=== PATIENT | male | born 1935 | race Caucasian/White ===

== ENCOUNTER → 2018-01-19 | Outpatient (CLI) | payer OTHER ==
[~2018-01-19] MED LIST: AMR2 PO; ASPEC81 PO; ATOR-26 PO; FLM4 PO; FLNIN NAE; FLUT1INH INH; FRS/40 PO; GLC500 PO; IPRASOL4 INH; LISI-725 PO; METO50TA16 PO; WARF5TAB7 PO; WARF5TAB90 PO
--- NOTE | 2018-01-19 15:56 | ECHOCARDIOGRAM REPORT ---
*NOTICE TO RECEIVING [employer] This information is strictly Confidential and protected under [place] law. [place] law prohibits you from making any further disclosure of this information unless further disclosure is expressly permitted by the written consent of the person to whom it pertains or is authorized by law. A general authorization for the release of medical or other information is not sufficient for this purpose. Hospital accepts no responsibility if the information is made available to any other person, INCLUDING THE PATIENT. Interpretation Summary * Name: HYACINTH GREENE Study Date: 01/19/2018 01:47 PM BP: 131/86 mmHg * Patient Location: [facility] HR: 89 * : 1935 (M/d/yyyy) Gender: Male Height: 71 in * Age: 82 yrs Ethnicity: CA Weight: 205 lb * Ordering Physician: Earnest Vergara * Referring Physician: Earnest Vergara * Performed By: Esther Villegas RCS * * Reason For Study: CHRONIC A-FIB / CHRONIC DIASTOLIC HEART FAILURE * BSA: 2.1 m2 * -- Conclusions -- * There is mild concentric left ventricular hypertrophy. * Left ventricular systolic function is normal. * The left atrium is severely dilated. * The right atrium is severely dilated. * Aortic valve sclerosis moderate, without significant aortic valvular stenosis. * Mild aortic regurgitation. * There is mild to moderate mitral regurgitation. * Right ventricular systolic pressure is elevated at 40-50mmHg. * The inferior vena cava is moderately dilated. Procedure Details * A complete two-dimensional transthoracic echocardiogram was performed (2D, M-mode, Doppler and color flow Doppler). Left Ventricle * The left ventricle is normal in size. * There is mild concentric left ventricular hypertrophy. * Left ventricular systolic function is normal. * Ejection Fraction = 55-60%. * The left ventricular wall motion is normal. Right Ventricle * The right ventricle is normal in size and function. Atria * The left atrium is severely dilated. * The right atrium is severely dilated. Mitral Valve * The mitral valve is grossly normal. * There is mild to moderate mitral regurgitation. * The mitral regurgitant jet is eccentrically directed. * The mitral regurgitant jet is posteriorly directed, which is consistent with anterior leaflet pathology. Tricuspid Valve * The tricuspid valve is not well visualized, but is grossly normal. * There is trace tricuspid regurgitation. * Right ventricular systolic pressure is elevated at 40-50mmHg. Aortic Valve * Aortic valve sclerosis moderate, without significant aortic valvular stenosis. * No hemodynamically significant valvular aortic stenosis. * Mild aortic regurgitation. Great Vessels * The aortic root is normal size. Pericardium/Pleural * There is no pericardial effusion. Great Vessels * The inferior vena cava is moderately dilated. MMode 2D Measurements and Calculations IVSd 1.5 cm IVSs 1.5 cm LVIDd 4.9 cm LVIDs 3.8 cm LVPWd 1.3 cm LVPWs 1.5 cm IVS/LVPW 1.1 FS 22.4 % EDV(Teich) 114.2 ml ESV(Teich) 62.9 ml EF(Teich) 45.0 % EDV(cubed) 119.5 ml ESV(cubed) 55.9 ml EF(cubed) 53.2 % % IVS thick 4.4 % % LVPW thick 19.0 % LV mass(C)d 275.7 grams LV mass(C)dI 129.4 grams/m\S\2 LV mass(C)s 223.8 grams LV mass(C)sI 105.0 grams/m\S\2 SV(Teich) 51.4 ml SI(Teich) 24.1 ml/m\S\2 SV(cubed) 63.7 ml SI(cubed) 29.9 ml/m\S\2 Ao root diam 3.5 cm Ao root area 9.4 cm\S\2 LA dimension 5.5 cm LA/Ao 1.6 LVOT diam 1.9 cm LVOT area 2.8 cm\S\2 LVAd ap4 33.2 cm\S\2 LVLd ap4 8.5 cm EDV(MOD-sp4) 107.1 ml EDV(sp4-el) 110.1 ml LVAs ap4 22.8 cm\S\2 LVLs ap4 7.6 cm ESV(MOD-sp4) 56.5 ml ESV(sp4-el) 58.2 ml EF(MOD-sp4) 47.2 % EF(sp4-el) 47.1 % LVAd ap2 30.8 cm\S\2 LVLd ap2 8.2 cm EDV(MOD-sp2) 94.6 ml EDV(sp2-el) 98.4 ml LVAs ap2 20.5 cm\S\2 LVLs ap2 7.0 cm ESV(MOD-sp2) 48.8 ml ESV(sp2-el) 51.1 ml EF(MOD-sp2) 48.4 % EF(sp2-el) 48.1 % LVLd %diff -4.10 % EDV(MOD-bp) 101.5 ml LVLs %diff -8.95 % ESV(MOD-bp) 54.3 ml EF(MOD-bp) 46.5 % SV(MOD-sp4) 50.6 ml SI(MOD-sp4) 23.7 ml/m\S\2 SV(MOD-sp2) 45.8 ml SI(MOD-sp2) 21.5 ml/m\S\2 SV(MOD-bp) 47.3 ml SI(MOD-bp) 22.2 ml/m\S\2 SV(sp4-el) 51.8 ml SI(sp4-el) 24.3 ml/m\S\2 SV(sp2-el) 47.3 ml SI(sp2-el) 22.2 ml/m\S\2 Doppler Measurements and Calculations MV E max karis 77.6 cm/sec MV dec time 0.22 sec Ao V2 max 86.0 cm/sec Ao max PG 3.0 mmHg Ao max PG (full) 1.5 mmHg MAXIMUS(V,A) 2.0 cm\S\2 MAXIMUS(V,D) 2.0 cm\S\2 LV V1 max PG 1.5 mmHg LV V1 max 60.9 cm/sec MR max karis 435.7 cm/sec MR max PG 75.9 mmHg PA V2 max 87.3 cm/sec PA max PG 3.0 mmHg PI max karis 192.6 cm/sec PI max PG 14.8 mmHg PI dec slope 85.8 cm/sec\S\2 PI P1/2t 657.1 msec TR max karis 281.5 cm/sec
== END | disposition home or self-care (01) ==
LOC: C.CPL 13:25
PROVIDERS: ATTEND Internal Medicine Cardiovascular Disease
DX: I48.2 Chronic atrial fibrillation (principal); I50.32 Chronic diastolic (congestive) heart failure; I70.0 Atherosclerosis of aorta; I08.0 Rheumatic disorders of both mitral and aortic valves

== ENCOUNTER 2018-04-03 17:44 | Inpatient (IN) | payer OTHER ==
[~2018-04-03] VITALS: Ht 180.3 cm; Wt 87.3 kg
[2018-04-03] MEDS ORDERED: SODIUM CHLORIDE 0.9% 1000ML 250 ML IV STA (17:55)
--- NOTE | 2018-04-03 18:04 | EMERGENCY ROOM VISIT NOTE ---
History Report prepared by Johann: Mary Alexis Under the Supervision of: Dr. Ernesto Sun M.D. 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 His daughter then took her father outside on Tuesday and while going back inside the house, he slipped on a metal slab and fell on his backside and then hit his head--no LOC. She states that her father has been repeatedly falling since he hit his head and his thinking/confusion has worsened. The patient states that movement worsens his leg pain--the leg pain is chronic. He denies any headaches , chest pain, SOB, or fever. A new medication for him is Hydrocodone prescribed for his leg pain. 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 A total of 10 systems reviewed and were otherwise negative. Past Medical & Surgical Medical Problems: (1) Atrial fibrillation (2) Bladder cancer (3) Chronic diastolic CHF (congestive heart failure) (4) CKD (chronic kidney disease), stage III (5) COPD (chronic obstructive pulmonary disease) (6) DM type 2 (diabetes mellitus, type 2) (7) Dyslipidemia (8) GERD (gastroesophageal reflux disease) (9) Hypertension (10) STEPHENIE (obstructive sleep apnea) Surgical Problems: (1) H/O inguinal hernia repair (2) Hx of cataract surgery (3) TURBT Family History Patient reports no known family medical history. Social History Smoking Status: Former Smoker Alcohol Use: none Marital Status: Occupation Status: retired Current/Historical Medications Scheduled Atorvastatin (Lipitor), 80 MG PO QPM Fluticasone Furoate-Vilanterol (Breo Ellipta), 1 PUFFS INH DAILY Fluticasone Propionate (Nasal) (Flonase Allergy Relief), 2 SPRAY CAROLANN DAILY Furosemide (Lasix), 60 MG PO QAM Glimepiride (Glimepiride), 1 TAB PO BID Lisinopril (Zestril), 10 MG PO DAILY Metoprolol Tartrate (Lopressor) (Lopressor), 50 MG PO BID Tamsulosin Hcl (Flomax), 0.4 MG PO DAILY Warfarin Sod (Jantoven), 5 MG PO TuTh Warfarin Sodium (Coumadin), 7.5 MG PO SuMoWeFrSa Scheduled PRN Hydrocodone/Acetaminophen 5MG/325MG (Nunda 5MG/325MG), 1 TABLET PO Q4H PRN for Pain Ipratropium-Albuterol (Duoneb), 1 TREATMENT INH Q4H PRN for CONGESTION Allergies Coded Allergies: Latex1 -Allergic Contact Dermititis (Verified Allergy, Unknown, LOCAL SKIN IRRITATION, 04/03/18) Cefuroxime (Verified Adverse Reaction, Mild, GI UPSET, 04/03/18) Penicillins (Verified Adverse Reaction, Mild, VOMITING, 04/03/18) Physical Exam Vital Signs Date Time Temp Pulse Resp B/P (MAP) Pulse Ox O2 Delivery O2 Flow Rate FiO2 04/03/18 20:13 111 24 113/63 94 Room Air 04/03/18 19:21 95 20 99/56 95 Room Air 04/03/18 18:07 109 04/03/18 18:02 97 Room Air 04/03/18 18:02 106 24 105/71 96 Room Air Physical Exam GENERAL: Patient is in no acute distress. HEENT: No acute trauma, normocephalic atraumatic, mucous membranes moist, no nasal congestion, no scleral icterus. No posterior scalp hematoma. NECK: No stridor, no adenopathy, no meningismus, trachea is midline. Nontender posterior C spine. LUNGS: Decreased breath sounds bilaterally. A few scattered wheezes are heard. No respiratory distress. Breath sounds are equal. HEART: Irregular rhythm with a normal rate. No murmurs. ABDOMEN: Soft, nontender, bowel sounds positive, no hernias, no peritonitis. EXTREMITIES: No cyanosis or edema, full range of motion of all the joints without pain or difficulty, no signs for acute trauma. NEUROLOGIC: Some confusion noted. Moving all extremities equally. Awake and alert. No focal motor deficits. GCS 14. SKIN: No rash, no jaundice, no diaphoresis. Medical Decision & Procedures ER Provider Diagnostic Interpretation: Radiology results as stated below per my review and radiologist interpretation: CHEST ONE VIEW PORTABLE CLINICAL HISTORY: 82 years-old Male presenting with EVALUATE ALTERED MENTAL STATUS/WEAKNESS. TECHNIQUE: Portable upright AP view of the chest was obtained. COMPARISON: 03/20/2016. FINDINGS: Atherosclerosis of aortic arch. Cardiac silhouette moderately enlarged. Pulmonary vascular prominence. Chronic elevation of the left hemidiaphragm. Minimal left basilar opacity. No large effusion or pneumothorax. Degenerative changes of the left glenohumeral joint. Upper abdomen normal. IMPRESSION: 1. Cardiomegaly with mild volume overload. No martha pulmonary edema or other convincing evidence of acute cardiopulmonary disease. Electronically signed by: Marcial Noriega M.D. 04/03/2018 6:12 PM Dictated Date/Time: 04/03/2018 6:11 PM HEAD WITHOUT CONTRAST (CT) CLINICAL HISTORY: 82 years-old Male presenting with EVALUATE ALTERED MENTAL STATUS/WEAKNESS. TECHNIQUE: Multidetector CT imaging of the head was performed without the use of intravenous contrast. IV contrast: None. A dose lowering technique was used consistent with the principles of ALARA (as low as reasonably achievable). COMPARISON: 03/14/2012. CT DOSE (mGy.cm): The estimated cumulative dose is 614.27 mGy.cm. FINDINGS: Algologist topogram: Unremarkable. Proportional ventricular and sulcal prominence, likely age-related parenchymal volume loss. Brain parenchyma normal in appearance with preserved vásquez-white differentiation. No mass effect or midline shift. No hemorrhage or acute territorial infarct. No extra-axial fluid collection. Paranasal sinuses and mastoid air cells clear. Calvarium intact. IMPRESSION: 1. No acute intracranial abnormality. Electronically signed by: Marcial Noriega M.D. 04/03/2018 7:52 PM Dictated Date/Time: 04/03/2018 7:49 PM Laboratory Results 04/03/18 18:25 Red Blood Count 4.64, Mean Corpuscular Volume 93.1, Mean Corpuscular Hemoglobin 32.1, Mean Corpuscular Hemoglobin Concent 34.5, Mean Platelet Volume 9.2, Neutrophils (%) (Auto) 73.4, Lymphocytes (%) (Auto) 13.9, Monocytes (%) (Auto) 11.9, Eosinophils (%) (Auto) 0.3, Basophils (%) (Auto) 0.2, Neutrophils # (Auto ) 7.90, Lymphocytes # (Auto) 1.50, Monocytes # (Auto) 1.28, Eosinophils # (Auto ) 0.03, Basophils # (Auto) 0.02 04/03/18 18:25 Test 04/03/18 18:25 04/03/18 18:34 White Blood Count 10.76 K/uL (4.8-10.8) Red Blood Count 4.64 M/uL (4.7-6.1) Hemoglobin 14.9 g/dL (14.0-18.0) Hematocrit 43.2 % (42-52) Mean Corpuscular Volume 93.1 fL (80-100) Mean Corpuscular Hemoglobin 32.1 pg (25-34) Mean Corpuscular Hemoglobin Concent 34.5 g/dl (32-36) Platelet Count 207 K/uL (130-400) Mean Platelet Volume 9.2 fL (7.4-10.4) Neutrophils (%) (Auto) 73.4 % Lymphocytes (%) (Auto) 13.9 % Monocytes (%) (Auto) 11.9 % Eosinophils (%) (Auto) 0.3 % Basophils (%) (Auto) 0.2 % Neutrophils # (Auto) 7.90 K/uL (1.4-6.5) Lymphocytes # (Auto) 1.50 K/uL (1.2-3.4) Monocytes # (Auto) 1.28 K/uL (0.11-0.59) Eosinophils # (Auto) 0.03 K/uL (0-0.5) Basophils # (Auto) 0.02 K/uL (0-0.2) RDW Standard Deviation 47.7 fL (36.4-46.3) RDW Coefficient of Variation 14.0 % (11.5-14.5) Immature Granulocyte % (Auto) 0.3 % Immature Granulocyte # (Auto) 0.03 K/uL (0.00-0.02) Prothrombin Time 32.2 SECONDS (9.0-12.0) Prothromb Time International Ratio 3.1 (0.9-1.1) Activated Partial Thromboplast Time 43.6 SECONDS (21.0-31.0) Partial Thromboplastin Ratio 1.7 Anion Gap 7.0 mmol/L (3-11) Est Creatinine Clear Calc Drug Dose 40.4 ml/min Estimated GFR () 49.5 Estimated GFR (Non- 42.7 BUN/Creatinine Ratio 20.7 (10-20) Calcium Level 11.0 mg/dl (8.5-10.1) Magnesium Level 2.1 mg/dl (1.8-2.4) Total Bilirubin 1.4 mg/dl (0.2-1) Aspartate Amino Transf (AST/SGOT) 33 U/L (15-37) Alanine Aminotransferase (ALT/SGPT) 17 U/L (12-78) Alkaline Phosphatase 174 U/L (45-117) Total Creatine Kinase 71 U/L (39-308) Troponin I < 0.015 ng/ml (0-0.045) Total Protein 6.8 gm/dl (6.4-8.2) Albumin 2.6 gm/dl (3.4-5.0) Globulin 4.2 gm/dl (2.5-4.0) Albumin/Globulin Ratio 0.6 (0.9-2) Thyroid Stimulating Hormone (TSH) 0.843 uIu/ml (0.300-4.500) Urine Color YELLOW Urine Appearance TURBID (CLEAR) Urine pH 5.5 (4.5-7.5) Urine Specific [place] 1.014 (1.000-1.030) Urine Protein 1+ (NEG) Urine Glucose (UA) NEG (NEG) Urine Ketones NEG (NEG) Urine Occult Blood 3+ (NEG) Urine Nitrite POS (NEG) Urine Bilirubin NEG (NEG) Urine Urobilinogen NEG (NEG) Urine Leukocyte Esterase LARGE (NEG) Urine WBC (Auto) >30 /hpf (0-5) Urine RBC (Auto) 10-30 /hpf (0-4) Urine Hyaline Casts (Auto) 1-5 /lpf (0-5) Urine Epithelial Cells (Auto) 0-5 /lpf (0-5) Urine Bacteria (Auto) NEG (NEG) Urine Yeast (Auto) (NONE PRSENT) Urine Opiates Screen POS (NEG) Urine Methadone, Qualitative NEG (NEG) Urine Barbiturates NEG (NEG) Urine Phencyclidine (PCP) Level NEG (NEG) Ur Amphetamine/Methamphetamine NEG (NEG) MDMA (Ecstasy) Screen NEG (NEG) Urine Benzodiazepines Screen NEG (NEG) Urine Cocaine Metabolite NEG (NEG) Urine Marijuana (THC) NEG (NEG) Laboratory results reviewed by me. Medications Administered Medications (Trade) Dose Ordered Sig/Clementina Route Start Time Stop Time Status Last Admin Dose Admin Sodium Chloride 250 ml @ 999 mls/hr Q16M STAT IV 04/03/18 17:55 04/03/18 18:10 DC 04/03/18 17:55 999 MLS/HR Ceftriaxone Sodium (Rocephin Inj) 1 gm NOW STAT IV 04/03/18 19:03 04/03/18 19:04 DC 04/03/18 19:20 1 GM Sodium Chloride 250 ml @ 999 mls/hr Q16M STAT IV 04/03/18 19:04 04/03/18 19:19 DC 04/03/18 19:20 999 MLS/HR Sodium Chloride 500 ml @ 999 mls/hr Q31M STAT IV 04/03/18 20:04 04/03/18 20:34 DC 04/03/18 20:13 999 MLS/HR ECG Per My Interpretation Indication: weakness Rate (beats per minute): 99 Rhythm: atrial fibrillation Findings: PVC, other (no ST elevation, diffuse nonspecific ST change) ED Course 174: The patient was evaluated in room B12. A complete history and physical exam was performed. 1755: Ordered Sodium Chloride 250 ml @ 999 mls/hr IV 1903: Ordered Rocephin Inj 1 gm IV 1904: Sodium Chloride 250 ml @ 999 mls/hr IV 2003: Ordered Sodium Chloride 500 ml @ 999 mls/hr IV 2005: I checked on the patient at this time. Medical Decision Differential diagnosis: Etiologies such as infection, UTI, renal or liver failure, dysrhythmia, AL, dehydration, electrolyte imbalance, stroke, intracranial bleeding, medication reaction as well as others were entertained. There is no leukocytosis or concerning anemia. Renal panel testing shows evidence for dehydration. There were also a few scattered liver enzyme elevations. The patient appeared to be in a euthyroid state. EKG showed A. fib with a PVC, no acute ischemia. Cardiac enzyme testing 1 is not consistent with acute cardiac injury. Chest film shows cardiomegaly, no CHF or pneumonia. Brain CT shows no acute bleed or mass-effect. Urinalysis is consistent with infection. Urine culture and blood cultures are pending. Urine tox shows opiates. INR is elevated consistent with his Coumadin use. The patient presents with a change in mental status, weakness and frequent falls. He appears to have a UTI and is dehydrated. I suspect these 2 issues have led to his presentation today. There may also be some weakness from the hydrocodone he is now taking for his leg pain. Given the change in mental status, given his weakness and frequent falls, a hospital stay is warranted. I spoke to the patient and case management. The on -call hospitalist was consulted. During the patient's ER stay, he received IV saline, he received IV ceftriaxone as antibiotic coverage. Head Trauma GCS Score: 14 Medication Reconcilliation Current Medication List: was personally reviewed by me Blood Pressure Screening Patient's blood pressure: Normal blood pressure Blood pressure disposition: Did not require urgent referral Consults Time Called: 1999 Consulting Physician: HUMBERTO Gomez, Dorina Hospitalist Returned Call: 2005 Discussed the patient's case with HUMBERTO Gomez. The patient will be evaluated for further management. Impression Primary Impression: Change in mental status Additional Impressions: Head trauma Frequent falls UTI (urinary tract infection) Scribe Attestation The scribe's documentation has been prepared under my direction and personally reviewed by me in its entirety. I confirm that the note above accurately reflects all work, treatment, procedures, and medical decision making performed by me. Departure Information Dispostion Being Evaluated By Hospitalist (HUMBERTO Gomez, Dorina Hospitalist) Referrals Robby Gallegos D.O. (PCP) Patient Instructions [facility] Problem Qualifiers
--- NOTE | 2018-04-03 18:14 | DIAGNOSTIC IMAGING REPORT ---
CHEST ONE VIEW PORTABLE CLINICAL HISTORY: 82 years-old Male presenting with EVALUATE ALTERED MENTAL STATUS/WEAKNESS. TECHNIQUE: Portable upright AP view of the chest was obtained. COMPARISON: 03/20/2016. FINDINGS: Atherosclerosis of aortic arch. Cardiac silhouette moderately enlarged. Pulmonary vascular prominence. Chronic elevation of the left hemidiaphragm. Minimal left basilar opacity. No large effusion or pneumothorax. Degenerative changes of the left glenohumeral joint. Upper abdomen normal. IMPRESSION: 1. Cardiomegaly with mild volume overload. No martha pulmonary edema or other convincing evidence of acute cardiopulmonary disease. Electronically signed by: Marcial Noriega M.D. 04/03/2018 6:12 PM Dictated Date/Time: 04/03/2018 6:11 PM
[2018-04-03] MEDS ORDERED: HYDR-5688 PO (18:28)
[2018-04-03] MEDS ORDERED: GLIM4TAB2 PO (18:28)
[2018-04-03] MEDS ORDERED: FLUT0.15 NAE (18:28)
[2018-04-03] MEDS ORDERED: METF-841 PO (18:28)
[2018-04-03] MEDS ORDERED: TAMS0.4C38 PO (18:28)
[2018-04-03 18:48] LABS: BASO % 0.2 %; BASO ABS # 0.02 K/uL (0-0.2); EOS % 0.3 %; EOS ABS # 0.03 K/uL (0-0.5); HEMATOCRIT 43.2 % (42-52); HEMOGLOBIN 14.9 g/dL (14.0-18.0); IG# 0.03 K/uL (0.00-0.02); LYMPH % 13.9 %; MEAN CELL VOLUME 93.1 fL (80-100); MEAN CORPUSCULAR HEMOGLOBIN 32.1 pg (25-34); MEAN CORPUSCULAR HGB CONC 34.5 g/dl (32-36); MEAN PLATELET VOLUME 9.2 fL (7.4-10.4); MONO % 11.9 %; MONO ABS # 1.28 K/uL (0.11-0.59); NEUT % 73.4 %; PLATELET COUNT 207 K/uL (130-400); RED CELL DISTRIBUTION WIDTH SD 47.7 fL (36.4-46.3); WHITE BLOOD COUNT 10.76 K/uL (4.8-10.8)
[2018-04-03 19:03] LABS: INR 3.1 (0.9-1.1); PTT PATIENT 43.6 SECONDS (21.0-31.0)
[2018-04-03] MEDS ORDERED: CEFTRIAXONE SOD INJ 1 GM ADDVIAL IV STA (19:03)
[2018-04-03] MEDS ORDERED: SODIUM CHLORIDE 0.9% 250ML 250 ML IV STA (19:04)
[2018-04-03 19:25] LABS: ALBUMIN 2.6 gm/dl (3.4-5.0); BLOOD UREA NITROGEN 31 mg/dl (7-18); CARBON DIOXIDE 28 mmol/L (21-32); GLUCOSE 76 mg/dl (70-99); POTASSIUM 4.2 mmol/L (3.5-5.1); SODIUM 134 mmol/L (136-145)
[2018-04-03 19:37] LABS: ALKALINE PHOSPHATASE 174 U/L (45-117); ALT/SGPT 17 U/L (12-78); AST/SGOT 33 U/L (15-37); TOTAL PROTEIN 6.8 gm/dl (6.4-8.2)
--- NOTE | 2018-04-03 19:53 | DIAGNOSTIC IMAGING REPORT ---
HEAD WITHOUT CONTRAST (CT) CLINICAL HISTORY: 82 years-old Male presenting with EVALUATE ALTERED MENTAL STATUS/WEAKNESS. TECHNIQUE: Multidetector CT imaging of the head was performed without the use of intravenous contrast. IV contrast: None. A dose lowering technique was used consistent with the principles of ALARA (as low as reasonably achievable). COMPARISON: 03/14/2012. CT DOSE (mGy.cm): The estimated cumulative dose is 614.27 mGy.cm. FINDINGS: Papeterie Table Assembler topogram: Unremarkable. Proportional ventricular and sulcal prominence, likely age-related parenchymal volume loss. Brain parenchyma normal in appearance with preserved vásquez-white differentiation. No mass effect or midline shift. No hemorrhage or acute territorial infarct. No extra-axial fluid collection. Paranasal sinuses and mastoid air cells clear. Calvarium intact. IMPRESSION: 1. No acute intracranial abnormality. Electronically signed by: Marcial Noriega M.D. 04/03/2018 7:52 PM Dictated Date/Time: 04/03/2018 7:49 PM
[2018-04-03] MEDS ORDERED: SODIUM CHLORIDE 0.9% 500ML 500 ML IV STA (20:04)
[2018-04-03 20:54] VITALS: BMI 26.5
[2018-04-03] MEDS ORDERED: ONDANSETRON INJ 2 MG/ML 2 ML VIAL IV PRN (21:00)
[2018-04-03] MEDS ORDERED: DEXTROSE 50% 50 ML SYR IV PRN (21:15)
[2018-04-03] MEDS ORDERED: GLUCOSE 10 TABS/TUBE PO PRN (21:15)
[2018-04-03] MEDS ORDERED: GLUCOSE 40% GEL 15 GM TUBE PO PRN (21:15)
[2018-04-03] MEDS ORDERED: GLUCAGON FOR INJ 1 MG VIAL SQ PRN (21:15)
[2018-04-03] MEDS ORDERED: CARBOHYDRATES FOR HYPOGLYCEMIA PO PRN (21:15)
[2018-04-03] MEDS ORDERED: VANCOMYCIN CONSULT ACTIVE PRN (21:28)
[2018-04-03] MEDS ORDERED: VANCOMYCIN IV 1,750 MG in SODIUM CHLORIDE 0.9% 500ML 500 ML IV STA (21:31)
[2018-04-03] MEDS ORDERED: PIPERACILL/TAZOBAC IV 3.375 GM in D5W 100 ML IV ONE (21:45)
[2018-04-03] MEDS ORDERED: PIPERACILL/TAZOBAC CONSULT ACTIVE PRN (21:45)
--- NOTE | 2018-04-03 21:55 | History and Physical ---
History & Physical Date & Time of Service: April 03, 2018 ~ 20:15 Chief Complaint: Weakness, falls, confusion Primary Care Physician: Robby Gallegos D.O. History of Present Illness 82-year-old male who presents to the ED with generalized weakness, falls, and confusion. and daughter at the bedside who provides some information. Patient has been following with urology at [place] for bladder tumor. On , patient had urine culture positive for staph. He was treated with Macrobid. Patient was seen by urology on 03/13/18 in preparation for TURBT and was found to have a UTI. I do not have access to those culture results. Patient was treated with Cipro. On 03/27/18, patient underwent TURBT. He had a Eubanks catheter placed postoperatively. This was removed on 03/31/18. Daughter is at the bedside who reports that urine was initially bloody after removing the catheter however has since cleared up. The patient has had at least 3 falls over the past 3 days. He did strike his head on 1 of the falls. There was no loss of consciousness. Daughter reports she witnessed each of the falls and the patient did not pass out. She reports the patient has had increasing confusion of the past 1 month. No unilateral weakness, numbness, or tingling. No facial droop or slurred speech. Patient denies feelings of lightheadedness or dizziness. No chest pain or shortness of breath. No abdominal pain, nausea , vomiting. Daughter reports the patient had some diarrhea for a couple of days however none since yesterday. No fevers or chills. No reported urinary symptoms. In the ED, patient's UA is suggestive of UTI. Vitals are stable and labs are unremarkable. He was given IVF and a dose of IV ceftriaxone. Past Medical/Surgical History Medical Problems: (1) Atrial fibrillation Status: Chronic (2) Bladder cancer Status: Chronic (3) Chronic diastolic CHF (congestive heart failure) Status: Chronic (4) CKD (chronic kidney disease), stage III Status: Chronic (5) COPD (chronic obstructive pulmonary disease) Status: Chronic (6) DM type 2 (diabetes mellitus, type 2) Status: Chronic (7) Dyslipidemia Status: Chronic (8) GERD (gastroesophageal reflux disease) Status: Chronic (9) Hypertension Status: Chronic (10) STEPHENIE (obstructive sleep apnea) Status: Chronic Surgical Problems: (1) H/O inguinal hernia repair Status: Chronic (2) Hx of cataract surgery Status: Chronic (3) TURBT Status: Chronic Family History Noncontributory secondary to patient's advanced age Social History Smoking Status: Former Smoker Alcohol Use: none Marital Status: Housing status: lives with family Occupational Status: retired Immunizations History of Influenza Vaccine: Yes Influenza Vaccine Date: Aug 24, 2017 History of Tetanus Vaccine?: Yes Tetanus Immunization Date: Sep 20, 2012 History of Pneumococcal: Yes Pneumococcal Date: Jun 05, 2015 Allergies Coded Allergies: Latex1 -Allergic Contact Dermititis (Verified Allergy, Unknown, LOCAL SKIN IRRITATION, 04/03/18) Cefuroxime (Verified Adverse Reaction, Mild, GI UPSET, 04/03/18) Penicillins (Verified Adverse Reaction, Mild, VOMITING, 04/03/18) Home Medications Scheduled Atorvastatin (Lipitor), 80 MG PO QPM Fluticasone Furoate-Vilanterol (Breo Ellipta), 1 PUFFS INH DAILY Fluticasone Propionate (Nasal) (Flonase Allergy Relief), 2 SPRAY CAROLANN DAILY Furosemide (Lasix), 60 MG PO QAM Glimepiride (Glimepiride), 1 TAB PO BID Lisinopril (Zestril), 10 MG PO DAILY Metoprolol Tartrate (Lopressor) (Lopressor), 50 MG PO BID Tamsulosin Hcl (Flomax), 0.4 MG PO DAILY Warfarin Sod (Jantoven), 5 MG PO TuTh Warfarin Sodium (Coumadin), 7.5 MG PO SuMoWeFrSa Scheduled PRN Hydrocodone/Acetaminophen 5MG/325MG ([place] 5MG/325MG), 1 TABLET PO Q4H PRN for Pain Ipratropium-Albuterol (Duoneb), 1 TREATMENT INH Q4H PRN for CONGESTION Review of Systems ROS per HPI, all other systems reviewed and negative Physical Exam Vital Signs Date Time Temp Pulse Resp B/P (MAP) Pulse Ox O2 Delivery O2 Flow Rate FiO2 04/03/18 21:23 104 22 104/63 97 04/03/18 20:54 Room Air 04/03/18 20:13 111 24 113/63 94 Room Air 04/03/18 19:21 95 20 99/56 95 Room Air 04/03/18 18:07 109 04/03/18 18:02 97 Room Air 04/03/18 18:02 106 24 105/71 96 Room Air General Appearance: WD/WN, no apparent distress Head: normocephalic, atraumatic Eyes: normal inspection, EOMI, sclerae normal ENT: hearing grossly normal, + pertinent finding (Mucous membranes moist) Neck: supple, no JVD, trachea midline Respiratory/Chest: lungs clear, normal breath sounds, no respiratory distress Cardiovascular: no edema, normal peripheral pulses, + irregularly irregular ( Heart rate in the low 100s) Abdomen/GI: normal bowel sounds, non tender, soft, no organomegaly Extremities/Musculoskelatal: normal inspection, no calf tenderness, normal capillary refill Neurologic/Psych: no motor/sensory deficits, alert, + disoriented (To time and situation, forgetful) Skin: + pertinent finding (DTI/stage II decubitus ulcer noted to coccyx, bilateral buttocks) Diagnostics Laboratory Results Results Past 24 Hours Test 04/03/18 18:25 04/03/18 18:34 Range/Units White Blood Count 10.76 4.8-10.8 K/uL Red Blood Count 4.64 4.7-6.1 M/uL Hemoglobin 14.9 14.0-18.0 g/dL Hematocrit 43.2 42-52 % Mean Corpuscular Volume 93.1 80-100 fL Mean Corpuscular Hemoglobin 32.1 25-34 pg Mean Corpuscular Hemoglobin Concent 34.5 32-36 g/dl Platelet Count 207 130-400 K/uL Mean Platelet Volume 9.2 7.4-10.4 fL Neutrophils (%) (Auto) 73.4 % Lymphocytes (%) (Auto) 13.9 % Monocytes (%) (Auto) 11.9 % Eosinophils (%) (Auto) 0.3 % Basophils (%) (Auto) 0.2 % Neutrophils # (Auto) 7.90 1.4-6.5 K/uL Lymphocytes # (Auto) 1.50 1.2-3.4 K/uL Monocytes # (Auto) 1.28 0.11-0.59 K/uL Eosinophils # (Auto) 0.03 0-0.5 K/uL Basophils # (Auto) 0.02 0-0.2 K/uL RDW Standard Deviation 47.7 36.4-46.3 fL RDW Coefficient of Variation 14.0 11.5-14.5 % Immature Granulocyte % (Auto) 0.3 % Immature Granulocyte # (Auto) 0.03 0.00-0.02 K/uL Prothrombin Time 32.2 9.0-12.0 SECONDS Prothromb Time International Ratio 3.1 0.9-1.1 Activated Partial Thromboplast Time 43.6 21.0-31.0 SECONDS Partial Thromboplastin Ratio 1.7 Sodium Level 134 136-145 mmol/L Potassium Level 4.2 3.5-5.1 mmol/L Chloride Level 99 98-107 mmol/L Carbon Dioxide Level 28 21-32 mmol/L Anion Gap 7.0 3-11 mmol/L Blood Urea Nitrogen 31 7-18 mg/dl Creatinine 1.50 0.60-1.40 mg/dl Est Creatinine Clear Calc Drug Dose 40.4 ml/min Estimated GFR () 49.5 Estimated GFR (Non- 42.7 BUN/Creatinine Ratio 20.7 10-20 Random Glucose 76 70-99 mg/dl Calcium Level 11.0 8.5-10.1 mg/dl Magnesium Level 2.1 1.8-2.4 mg/dl Total Bilirubin 1.4 0.2-1 mg/dl Aspartate Amino Transf (AST/SGOT) 33 15-37 U/L Alanine Aminotransferase (ALT/SGPT) 17 12-78 U/L Alkaline Phosphatase 174 45-117 U/L Total Creatine Kinase 71 39-308 U/L Troponin I < 0.015 0-0.045 ng/ml Total Protein 6.8 6.4-8.2 gm/dl Albumin 2.6 3.4-5.0 gm/dl Globulin 4.2 2.5-4.0 gm/dl Albumin/Globulin Ratio 0.6 0.9-2 Thyroid Stimulating Hormone (TSH) 0.843 0.300-4.500 uIu/ml Urine Color YELLOW Urine Appearance TURBID CLEAR Urine pH 5.5 4.5-7.5 Urine Specific [place] 1.014 1.000-1.030 Urine Protein 1+ NEG Urine Glucose (UA) NEG NEG Urine Ketones NEG NEG Urine Occult Blood 3+ NEG Urine Nitrite POS NEG Urine Bilirubin NEG NEG Urine Urobilinogen NEG NEG Urine Leukocyte Esterase LARGE NEG Urine WBC (Auto) >30 0-5 /hpf Urine RBC (Auto) 10-30 0-4 /hpf Urine Hyaline Casts (Auto) 1-5 0-5 /lpf Urine Epithelial Cells (Auto) 0-5 0-5 /lpf Urine Bacteria (Auto) NEG NEG Urine Yeast (Auto) NONE PRSENT Urine Opiates Screen POS NEG Urine Methadone, Qualitative NEG NEG Urine Barbiturates NEG NEG Urine Phencyclidine (PCP) Level NEG NEG Ur Amphetamine/Methamphetamine NEG NEG MDMA (Ecstasy) Screen NEG NEG Urine Benzodiazepines Screen NEG NEG Urine Cocaine Metabolite NEG NEG Urine Marijuana (THC) NEG NEG Microbiology Results 04/03/18 Blood Culture, Received Pending 04/03/18 Blood Culture, Received Pending 04/03/18 Urine Culture, Received Pending Diagnostic Radiology HEAD CT IMPRESSION: 1. No acute intracranial abnormality. CXR IMPRESSION: 1. Cardiomegaly with mild volume overload. No martha pulmonary edema or other convincing evidence of acute cardiopulmonary disease. Impression Assessment and Plan GENERALIZED WEAKNESS, FALLS, CONFUSION UTI (PRESENT ON ADMISSION) -Admit to [facility] -Patient presenting from home with increasing falls, confusion, generalized weakness - likely metabolic encephalopathy due to UTI -UA suggestive of UTI -S/P TURBT on 03/27 in [place] -02/10/18-urine culture positive for staph, treated with Macrobid; placed on Cipro on 03/13/18 for UTI, culture results unavailable -S/P ceftriaxone in the ED; given recent staph UTI and also invasive procedure, will place on Vanco and Zosyn -IVF -Blood and urine cultures -Does not appear septic, mild tachycardia noted however afebrile, no leukocytosis, BP stable HISTORY OF BLADDER TUMOR -S/P TURBT on 03/27 -Follows with urologist in [place] (Dr. Romero) ATRIAL FIBRILLATION -Rate controlled on metoprolol, will continue -Anticoagulated on Coumadin, INR 3.1 -patient did take home dose of Coumadin today, will hold further doses of Coumadin pending morning INR DM TYPE II -Hgb A1c 7.3 01/2018 -Hold oral agents and utilize NovoLog protocol while hospitalized HYPERTENSION -BP controlled, continue lisinopril and metoprolol CKD STAGE III -Baseline creatinine runs in the mid ones, noted to be 1.5 today -Continue to monitor renal functions and avoid nephrotoxic agents when able CHRONIC DIASTOLIC CHF -Will hold furosemide while giving IVF for UTI -Monitor volume status closely COPD -No signs of acute exacerbation -Continue home inhalers COCCYX/BUTTOCKS DECUBITUS ULCERS (PRESENT ON ADMISSION) -Wound care consult BONY LESIONS -Bony lesions found in the left tibia and fibula on outpatient imaging -Outpatient PET scan pending DVT PROPHYLAXIS -Anticoagulated on Coumadin, INR 3.2 CODE STATUS -Patient is a full code as per my discussion with him as well as his and daughter who at the bedside. DISPOSITION -In my clinical judgment this beneficiary meets acute admission criteria, established by [facility], that includes being hospitalized through two midnights. -PT/OT, case management consult; patient may need short-term rehab stay after hospitalization Advanced Directives Existing Living Will: No Existing Power of Window Treatment Installer: No Resuscitation Status VTE Prophylaxis Will order VTE Prophylaxis: Yes
[2018-04-03 22:06] VITALS: BP 115/71; PULSE 97; TEMP 36.9; O2SAT 93
--- NOTE | 2018-04-03 22:12 | Pharmacy Progress Note ---
Pharmacy Abx Initial Consult Date of Service April 03, 2018. Pharmacy Dosing Scope Date of Consult: 04/03/18 Consultation requested by: Elizabeth Marinelli Pharmacy is consulted to initiate Vancomycin/Zosyn IV dosing therapy, order appropriate labs and adjust drug dose/frequency. Subjective The patient is a 82 year old male admitted on April 03, 2018 at 20:52. Objective Height (Feet): 5 Height (Inches): 11.00 Weight (Kilograms): 86.300 Vital Signs (Past 12Hrs) Vital Signs Past 12 Hours Date Time Temp Pulse Resp B/P (MAP) Pulse Ox O2 Delivery O2 Flow Rate FiO2 04/03/18 21:23 104 22 104/63 97 04/03/18 20:54 Room Air 04/03/18 20:13 111 24 113/63 94 Room Air 04/03/18 19:21 95 20 99/56 95 Room Air 04/03/18 18:07 109 04/03/18 18:02 97 Room Air 04/03/18 18:02 106 24 105/71 96 Room Air Lab Results (24Hrs) Laboratory Tests (24 Hours) Test 04/03/18 18:25 White Blood Count 10.76 K/uL (4.8-10.8) Red Blood Count 4.64 M/uL (4.7-6.1) L Hemoglobin 14.9 g/dL (14.0-18.0) Hematocrit 43.2 % (42-52) Mean Corpuscular Volume 93.1 fL (80-100) Mean Corpuscular Hemoglobin 32.1 pg (25-34) Mean Corpuscular Hemoglobin Concent 34.5 g/dl (32-36) Platelet Count 207 K/uL (130-400) Mean Platelet Volume 9.2 fL (7.4-10.4) Neutrophils (%) (Auto) 73.4 % Lymphocytes (%) (Auto) 13.9 % Monocytes (%) (Auto) 11.9 % Eosinophils (%) (Auto) 0.3 % Basophils (%) (Auto) 0.2 % Neutrophils # (Auto) 7.90 K/uL (1.4-6.5) H Lymphocytes # (Auto) 1.50 K/uL (1.2-3.4) Monocytes # (Auto) 1.28 K/uL (0.11-0.59) H Eosinophils # (Auto) 0.03 K/uL (0-0.5) Basophils # (Auto) 0.02 K/uL (0-0.2) Total Creatine Kinase 71 U/L (39-308) Micro Results Date/Time Source Procedure Growth Status 04/03/18 18:25 Blood Blood Culture Pending Received 04/03/18 18:21 Blood Blood Culture Pending Received 04/03/18 18:34 Urine,Catheterized Urine Culture Pending Received Risk Factors for Resistance * Antimicrobial use within the last 90 days Macrobid/Cipro Assessment & Plan Assessment Mr. Aguirre p/w generalized weakness, falls, AMS. Nil leukocytosis, afebrile. Currently following at [place] for a bladder tumor. 02/10/18 he had a UC that grew staph and subsequently treated with macrobid (c/s's unavailable at this point in time). At a later juncture he was treated with cipro for another UTI. The UA obtained in the ED is indicative of a UTI: positive for nitrites (? potentially gram(-) in etiology). Renal fxn: Difficult to determine if today's renal fxn is elevated to his baseline given that he hasn't had a recent admission. Vancomycin dosed according to renal fxn tests obtained 04/03/18 in ED. Plan Vancomycin IV * Loading dose: 1750 mg (20 mg/kg) * Maintenance dose: 1250 mg IV (14.5 mg/kg) every 20 hours * Goal trough level for complicated UTI : 15 to 20 mcg/mL * Trough/Random level ordered for 04/06/18 @0330 Piperacillin/tazobactam * 3.375 g bolus administered over 30 minutes, then 3.375 g IV extended infusion every 8 hours for CrCl greater than 20 mL/min Pharmacy will continue to follow and will adjust dose/frequency as necessary. Thank you.
[2018-04-03] MEDS: SODIUM CHLORIDE 0.9% 1000ML 1,000 ML IV SCH (22:17)
[2018-04-03] MEDS: ATORVASTATIN 40 MG TAB PO SCH (22:18)
[2018-04-03 23:28] VITALS: BP 96/61; PULSE 92; TEMP 37.2; O2SAT 93
[2018-04-03] MEDS: ACETAMINOPHEN 325 MG TAB PO PRN (23:48)
[2018-04-04] MEDS: PIPERACILL/TAZOBAC IV 3.375 GM in D5W 100ML IV SCH ×3 (03:25→19:19)
[2018-04-04 06:44] LABS: HEMATOCRIT 38.3 % (42-52); HEMOGLOBIN 13.3 g/dL (14.0-18.0); MEAN CORPUSCULAR HEMOGLOBIN 32.3 pg (25-34); MEAN CORPUSCULAR HGB CONC 34.7 g/dl (32-36); PLATELET COUNT 194 K/uL (130-400); RED CELL DISTRIBUTION WIDTH CV 13.9 % (11.5-14.5); RED CELL DISTRIBUTION WIDTH SD 47.7 fL (36.4-46.3); WHITE BLOOD COUNT 10.13 K/uL (4.8-10.8)
[2018-04-04 06:59] LABS: INR 4.5 (0.9-1.1)
[2018-04-04 07:00] VITALS: BP 107/63; PULSE 103; TEMP 36.8; O2SAT 93
[2018-04-04 07:08] LABS: CALCIUM 9.8 mg/dl (8.5-10.1); CREATININE 1.39 mg/dl (0.60-1.40); POTASSIUM 3.4 mmol/L (3.5-5.1)
[2018-04-04] MEDS: METOPROLOL TARTRATE 50 MG TAB PO SCH ×2 (07:49→20:54)
[2018-04-04] MEDS: LISINOPRIL 20 MG TAB PO SCH (07:50)
[2018-04-04] MEDS: TAMSULOSIN HCL 0.4 MG CAP PO SCH (07:50)
[2018-04-04] MEDS: INSULIN ASPART 100 UNITS/ML 3 ML PEN SC SCH ×4 (09:01→21:00)
[2018-04-04] MEDS: ACETAMINOPHEN 325 MG TAB PO PRN (09:10)
[2018-04-04 11:08] VITALS: Ht 180.3 cm; Wt 87.3 kg
[2018-04-04] MEDS ORDERED: VANCOMYCIN IV 1,250 MG in SODIUM CHLORIDE 0.9% 250ML 250 ML IV SCH ×2 (12:00→18:00)
[2018-04-04] MEDS ORDERED: SODIUM CHLORIDE 0.9% 1000ML 1,000 ML IV SCH (13:15)
--- NOTE | 2018-04-04 13:35 | Progress Note ---
Internal Med Progress Note Date of Service: April 04, 2018. Provider Documentation: SUBJECTIVE: Patient reports leg weakness. As per patient and family the leg weakness has been going on for 1 month and family needed to assist in transfers at home. Patient reports leg pain with movements that is worse on left leg where he has bony lesions. OBJECTIVE: Exam: General- no distress Eyes- EOMI Neck-no JVD Lungs- CTABL, no wheezing Heart- regular rate Abdomen- soft, nontender, + bowel sounds Extremities- no edema, can wiggle toes on both legs, minimal active leg elevation movements. when physician assists with passive leg elevation, patient reports pain for both legs. Neuro- speaks in full sentences ASSESSMENT & PLAN: GENERALIZED WEAKNESS, FALLS, CONFUSION / UTI (PRESENT ON ADMISSION) -CT head without contrast: No acute intracranial abnormality -Metabolic encephalopathy possibly due to Urinary tract infection -Patient has had previous history of of UTI and urinary tract procedure (02/10/18 -urine culture positive for staph, treated with Macrobid; placed on Cipro on for UTI, S/P TURBT on 03/27 in [place]) -Antibiotics on this hospital course: Positive UA on admission, S/P ceftriaxone in the ED; then placed on Vancomycin and Zosyn, urine culture as staph species, continue the broad spectrum antibiotics of Vancomycin and Zosyn until urine culture sensitivity returns HISTORY OF BLADDER TUMOR -S/P TURBT on 03/27 -Follows with urologist in [place] (Dr. Romero) CKD STAGE III -IV fluids have been given for renal function and because of urinary tract infection, possible will need contrast for MRI imaging and will continue IV fluids for now CHRONIC DIASTOLIC CHF -Hold furosemide while giving IVF for UTI ATRIAL FIBRILLATION -Rate controlled on metoprolol, will continue -Anticoagulated on Coumadin on admission 04/03/18 with initial INR 3.1, INR remains supratherapeutic as 4.5 on 04/04/18, continue to hold coumadin for now HYPERTENSION -BP controlled, continue lisinopril and metoprolol DM TYPE II -Hgb A1c 7.3 01/2018 -Hold oral agents and utilize NovoLog protocol while hospitalized COPD -No signs of acute exacerbation -Continue home inhalers COCCYX/BUTTOCKS DECUBITUS ULCERS (PRESENT ON ADMISSION) -Wound care consult had been placed BONY LESIONS -multiple radiolucencies suggestive of Bony lesions found in the left tibia and fibula on outpatient X ray 02/2018 -MRI of lumbar spine ordered as inpatient to rule out spinal lesions versus spinal cord compression, skeletal survey ordered as inpatient -Outpatient PET scan pending 04/19/2018 10:00 AM PET [facility] 1st Floor, [place] Ambulatory dysfunction -may be due to deconditioning at home vs complications from bony lesions -MRI of lumbar spine ordered as inpatient to rule out spinal lesions versus spinal cord compression, skeletal survey ordered as inpatient -Physical Therapy initial assessment 04/04/18: pt unsafe and not functioning well enough to return home. He will need inpt rehab -Continue PT/OT while being treated in the hospital DVT PROPHYLAXIS -Anticoagulated on Coumadin daughter Raafela [phone] Vital Signs: Date Time Temp Pulse Resp B/P (MAP) Pulse Ox O2 Delivery O2 Flow Rate FiO2 04/04/18 09:20 Room Air 04/04/18 07:00 36.8 103 20 107/63 (78) 93 Room Air 04/04/18 00:00 Room Air 04/03/18 23:28 37.2 92 20 96/61 (73) 93 Room Air 04/03/18 22:06 36.9 97 18 115/71 (86) 93 Room Air 04/03/18 21:23 104 22 104/63 97 04/03/18 20:54 Room Air 04/03/18 20:13 111 24 113/63 94 Room Air 04/03/18 19:21 95 20 99/56 95 Room Air 04/03/18 18:07 109 04/03/18 18:02 97 Room Air 04/03/18 18:02 106 24 105/71 96 Room Air Lab Results: Results Past 24 Hours Test 04/03/18 18:25 04/03/18 18:34 04/04/18 06:33 04/04/18 07:20 Range/Units White Blood Count 10.76 10.13 4.8-10.8 K/uL Red Blood Count 4.64 4.12 4.7-6.1 M/uL Hemoglobin 14.9 13.3 14.0-18.0 g/dL Hematocrit 43.2 38.3 42-52 % Mean Corpuscular Volume 93.1 93.0 80-100 fL Mean Corpuscular Hemoglobin 32.1 32.3 25-34 pg Mean Corpuscular Hemoglobin Concent 34.5 34.7 32-36 g/dl Platelet Count 207 194 130-400 K/uL Mean Platelet Volume 9.2 9.0 7.4-10.4 fL Neutrophils (%) (Auto) 73.4 % Lymphocytes (%) (Auto) 13.9 % Monocytes (%) (Auto) 11.9 % Eosinophils (%) (Auto) 0.3 % Basophils (%) (Auto) 0.2 % Neutrophils # (Auto) 7.90 1.4-6.5 K/uL Lymphocytes # (Auto) 1.50 1.2-3.4 K/uL Monocytes # (Auto) 1.28 0.11-0.59 K/uL Eosinophils # (Auto) 0.03 0-0.5 K/uL Basophils # (Auto) 0.02 0-0.2 K/uL RDW Standard Deviation 47.7 47.7 36.4-46.3 fL RDW Coefficient of Variation 14.0 13.9 11.5-14.5 % Immature Granulocyte % (Auto) 0.3 % Immature Granulocyte # (Auto) 0.03 0.00-0.02 K/uL Prothrombin Time 32.2 45.8 9.0-12.0 SECONDS Prothromb Time International Ratio 3.1 4.5 0.9-1.1 Activated Partial Thromboplast Time 43.6 21.0-31.0 SECONDS Partial Thromboplastin Ratio 1.7 Sodium Level 134 138 136-145 mmol/L Potassium Level 4.2 3.4 3.5-5.1 mmol/L Chloride Level 99 104 98-107 mmol/L Carbon Dioxide Level 28 27 21-32 mmol/L Anion Gap 7.0 7.0 3-11 mmol/L Blood Urea Nitrogen 31 29 7-18 mg/dl Creatinine 1.50 1.39 0.60-1.40 mg/dl Est Creatinine Clear Calc Drug Dose 40.4 43.6 ml/min Estimated GFR () 49.5 54.3 Estimated GFR (Non- 42.7 46.9 BUN/Creatinine Ratio 20.7 21.0 10-20 Random Glucose 76 52 70-99 mg/dl Calcium Level 11.0 9.8 8.5-10.1 mg/dl Magnesium Level 2.1 1.8-2.4 mg/dl Total Bilirubin 1.4 0.2-1 mg/dl Aspartate Amino Transf (AST/SGOT) 33 15-37 U/L Alanine Aminotransferase (ALT/SGPT) 17 12-78 U/L Alkaline Phosphatase 174 45-117 U/L Total Creatine Kinase 71 39-308 U/L Troponin I < 0.015 0-0.045 ng/ml Total Protein 6.8 6.4-8.2 gm/dl Albumin 2.6 3.4-5.0 gm/dl Globulin 4.2 2.5-4.0 gm/dl Albumin/Globulin Ratio 0.6 0.9-2 Thyroid Stimulating Hormone (TSH) 0.843 0.300-4.500 uIu/ml Urine Color YELLOW Urine Appearance TURBID CLEAR Urine pH 5.5 4.5-7.5 Urine Specific [place] 1.014 1.000-1.030 Urine Protein 1+ NEG Urine Glucose (UA) NEG NEG Urine Ketones NEG NEG Urine Occult Blood 3+ NEG Urine Nitrite POS NEG Urine Bilirubin NEG NEG Urine Urobilinogen NEG NEG Urine Leukocyte Esterase LARGE NEG Urine WBC (Auto) >30 0-5 /hpf Urine RBC (Auto) 10-30 0-4 /hpf Urine Hyaline Casts (Auto) 1-5 0-5 /lpf Urine Epithelial Cells (Auto) 0-5 0-5 /lpf Urine Bacteria (Auto) NEG NEG Urine Yeast (Auto) NONE PRSENT Urine Opiates Screen POS NEG Urine Methadone, Qualitative NEG NEG Urine Barbiturates NEG NEG Urine Phencyclidine (PCP) Level NEG NEG Ur Amphetamine/Methamphetamine NEG NEG MDMA (Ecstasy) Screen NEG NEG Urine Benzodiazepines Screen NEG NEG Urine Cocaine Metabolite NEG NEG Urine Marijuana (THC) NEG NEG Bedside Glucose 55 70-99 mg/dl Test 04/04/18 07:38 04/04/18 11:37 Range/Units Bedside Glucose 93 71 70-99 mg/dl Microbiology Results 04/03/18 Blood Culture, Received Pending 04/03/18 Blood Culture, Received Pending 04/03/18 Urine Culture - Preliminary, Resulted Staph Species
[2018-04-04] MEDS: SODIUM CHLORIDE 0.9% 1000ML 1,000 ML IV SCH (15:13)
[2018-04-04 15:27] VITALS: BP 100/62; PULSE 98; TEMP 36.9; O2SAT 93
[2018-04-04] MEDS ORDERED: GADAVIST IV PRN (17:15)
[2018-04-04] MEDS ORDERED: NURSING VERBAL MED ORDER ONE ×2 (17:45→19:00)
--- NOTE | 2018-04-04 18:27 | DIAGNOSTIC IMAGING REPORT ---
SKELETAL SURVEY COMPLETE CLINICAL HISTORY: 82 years-old Male presenting with bony lesions of left leg, rule out lesions elsewhere. TECHNIQUE: AP supine view of the chest, frontal and lateral views of the skull, frontal and lateral views of the cervical spine, 3 views of the thoracic spine, frontal, lateral, and coned in lateral views of the lumbar spine, lateral view of the pelvis, frontal view of the bilateral hips and femurs, and frontal view of the bilateral humeri were obtained. COMPARISON: Lumbar spine performed earlier the same day and chest x-ray from 03/20/2016.. FINDINGS: Chest: Atherosclerosis of aortic arch. Cardiac silhouette moderately enlarged. Pulmonary vascular prominence. Chronic elevation of the left hemidiaphragm. No large pleural effusion or pneumothorax. No gross evidence of a destructive osseous lesion. Upper abdomen normal. Skull: No destructive osseous lesion. Calvarium grossly intact. Paranasal sinuses and mastoid air cells grossly clear. Bony orbits intact. Cervical spine: Degenerative changes of the cervical spine. Suboptimal visualization of the lower cervical spine. No gross evidence of a destructive osseous lesion. Thoracic spine: Normal thoracic kyphosis. Vertebral bodies maintain normal height and alignment. Intervertebral disc heights preserved. No advanced degenerative change. No gross evidence of a destructive osseous lesion. Lumbar spine: Cholelithiasis noted. Significant atherosclerosis. Osteopenia suspected. No significant scoliosis. Normal lumbar lordosis. Vertebral bodies maintain normal height and alignment. Intervertebral disc heights preserved. Degenerative changes noted in the lower lumbar spine with suspected osseous neural foraminal narrowing. No gross evidence of a destructive osseous lesion. Specifically, the suspicious lesion in L4 visible on MR as well as lesions in L5 and S2 are not radiographically apparent. Pelvis: Lucency in the region of the left superior and inferior pubic rami is indeterminate. Remainder of the bony pelvis is intact. Hip joints intact. Right hip and femur: Right hip joint intact. No gross evidence of a destructive osseous lesion. Left hip and femur: Left hip joint congruent. Small lytic lesion may be present in the distal left femoral metaphysis. Right humerus: No gross evidence of destructive osseous lesion. Left humerus: Degenerative changes of the left glenohumeral joint. No gross evidence of a destructive osseous lesion. IMPRESSION: 1. Suspicious lesions in L4, L5, and S2 visible on MR of the lumbar spine performed earlier today are not radiographically apparent. Radiographic evaluation of the skeletal structures has limited sensitivity. Allowing for this, a small lytic lesion may be present in the distal left femoral metaphysis. Additionally, lucency in the left superior and inferior pubic rami raise concern for a lytic lesions. If the patient has a history of multiple myeloma or other malignancy, PET/CT could be considered which may have better sensitivity. 2. Atherosclerosis. 3. Cholelithiasis. 4. Suboptimal examinations of specific anatomic regions detailed above. Electronically signed by: Marcial Noriega M.D. 04/04/2018 6:26 PM Dictated Date/Time: 04/04/2018 6:16 PM
--- NOTE | 2018-04-04 18:45 | DIAGNOSTIC IMAGING REPORT ---
LUMBAR SPINE COMBINATION CLINICAL HISTORY: 82 years-old Male with rule out lesions or spinal cord compression. 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 The study is motion degraded, notably the postcontrast images are motion degraded. Focal area of marrow replacement involving the posterior aspect of the L4 vertebral body measures 2.4 x 2.0 x 2.8 cm, image 10 series 5 and image 10 series 4 which demonstrates decreased T1 and increased T2/STIR signal extending into the left pedicle and posterior elements. Additionally, there is a lesion of the left L4 lamina and transverse process measuring up to 3.1 x 2.4 cm which demonstrates decreased T1 and increased T2 signal with enhancement and suggested soft tissue component measuring 12 x 13 mm on image 17 series 9. This lesion causes mild mass effect upon the left posterior lateral epidural space without thecal extension or significant central canal narrowing. No evidence of pathologic fracture. Additionally, there are focal areas of decreased T1 and increased T2 STIR signal about the L5 vertebral body measuring 1.0 and 1.5 cm, image 11 of series 5 and series 4. 8 mm lesion of the S2 vertebral body. There may be some minimal peripheral enhancement of the 1.0 cm lesion, image 22 series 9. There is no aortic aneurysm or bulky adenopathy identified. Epidural lipomatosis is noted about the lower lumbar spine at L4-L5 and L5-S1. Signal within the imaged thoracic spinal cord is normal. Conus medullaris terminates at the T12-L1 level. The cauda equina appear normal. Moderate soft tissue edema about the left facet at L4-L5. T12-L1: Disc desiccation and mild spondylitic spurring and mild facet arthrosis. No central canal or foraminal narrowing. L1-L2: Mild disc desiccation and spondylotic spurring with small circumferential annular disc bulge and moderate facet arthrosis. No central canal or foraminal narrowing. L2-L3: Minimal spondylitic spurring and mild to moderate facet arthrosis with ligamentum flavum thickening. No central canal or foraminal narrowing. L3-L4: Disc desiccation with mild intervertebral disc space narrowing and mild spondylitic spurring with circumferential annular disc bulge, moderate facet arthrosis and ligamentum flavum thickening. Disc bulge favors the left paracentral distribution, left lateral recess and left foramen causing mild left lateral recess and mild left foraminal narrowing. The canal is patent. There is also mild right foraminal stenosis. L4-L5: Mild intervertebral disc space narrowing with disc desiccation, spondylitic spurring and circumferential annular disc bulge with moderate facet arthrosis and ligamentum flavum thickening causing flattening of the ventral thecal sac without significant central canal stenosis. Mild right foraminal narrowing. The left foramen is patent. L5-S1: No significant intervertebral disc space narrowing. Mild spondylitic spurring with moderate facet arthrosis and ligamentum flavum thickening. Mild right foraminal narrowing. Central canal and left foramen are patent. IMPRESSION: 1. Motion degraded exam with areas of marrow replacement involving the L4, L5 and S2 vertebral bodies with areas of mild enhancement suggest metastatic disease from unknown primary or multiple myeloma as the primary differential considerations. 3.1 cm lesion of the posterior elements at L4 abuts the left posterior lateral epidural space without thecal extension, significant central canal or foraminal narrowing. 2. Multilevel facet arthrosis and mostly mild discogenic degenerative changes as detailed above. 3. No evidence of pathologic fracture, high-grade central canal or foraminal narrowing. The above report was generated using voice recognition software. It may contain grammatical, syntax or spelling errors. Electronically signed by: Puneet Anderson M.D. 04/04/2018 6:43 PM Dictated Date/Time: 04/04/2018 5:57 PM
[2018-04-04] MEDS: D5W AND 1/2NSS 1,000 ML IV SCH (19:20)
[2018-04-04] MEDS: ATORVASTATIN 40 MG TAB PO SCH (20:53)
[2018-04-04 20:55] VITALS: BP 127/72; PULSE 108
[2018-04-04] MEDS ORDERED: COUGH DROP (SUGAR FREE) LOZ 24 LOZ/1 BOX LOZ ONE (21:50)
[2018-04-04] MEDS ORDERED: COUGH DROP (SUGAR FREE) LOZ 24 LOZ/1 BOX LOZ PRN (22:00)
[2018-04-04 23:29] VITALS: BP 107/59; PULSE 78; TEMP 37; O2SAT 95
[2018-04-05] VITALS: O2SAT 95
[2018-04-05] MEDS: PIPERACILL/TAZOBAC IV 3.375 GM in D5W 100ML IV SCH (03:59)
[2018-04-05] MEDS: ACETAMINOPHEN 325 MG TAB PO PRN (03:59)
[2018-04-05] MEDS: INSULIN ASPART 100 UNITS/ML 3 ML PEN SC SCH ×4 (06:30→21:00)
[2018-04-05 06:53] LABS: BASO % 0.1 %; BASO ABS # 0.01 K/uL (0-0.2); EOS % 0.9 %; EOS ABS # 0.09 K/uL (0-0.5); HEMOGLOBIN 13.7 g/dL (14.0-18.0); IG# 0.04 K/uL (0.00-0.02); LYMPH % 17.5 %; LYMPH ABS # 1.84 K/uL (1.2-3.4); MEAN CELL VOLUME 93.5 fL (80-100); MEAN CORPUSCULAR HGB CONC 34.3 g/dl (32-36); MONO ABS # 1.05 K/uL (0.11-0.59); NEUT % 71.1 %; NEUT ABS # 7.48 K/uL (1.4-6.5); PLATELET COUNT 227 K/uL (130-400); RED CELL DISTRIBUTION WIDTH CV 14.1 % (11.5-14.5); RED CELL DISTRIBUTION WIDTH SD 48.3 fL (36.4-46.3); WHITE BLOOD COUNT 10.51 K/uL (4.8-10.8)
[2018-04-05 07:25] VITALS: BP 134/71; PULSE 104; TEMP 36.5; O2SAT 95
[2018-04-05 07:36] LABS: ALBUMIN 2.2 gm/dl (3.4-5.0); CALCIUM 9.6 mg/dl (8.5-10.1); CREATININE 1.31 mg/dl (0.60-1.40); POTASSIUM 3.6 mmol/L (3.5-5.1)
[2018-04-05 08:20] LABS: INR 3.9 (0.9-1.1)
[2018-04-05] MEDS: TAMSULOSIN HCL 0.4 MG CAP PO SCH (09:40)
[2018-04-05] MEDS: HYDROCODONE/ACETAMIN 5/325MG TAB PO PRN (09:40)
[2018-04-05] MEDS: METOPROLOL TARTRATE 50 MG TAB PO SCH ×2 (09:41→19:49)
[2018-04-05] MEDS: LISINOPRIL 20 MG TAB PO SCH (09:41)
[2018-04-05] MEDS: D5W AND 1/2NSS 1,000 ML IV SCH (09:42)
--- NOTE | 2018-04-05 09:59 | Medical Consult ---
Consultation Date of Consultation: April 05, 2018. Attending Physician: Demarcus Roy M.D. Reason for Consultation: Lytic lesions on bone scan History of Present Illness Mr. Aguirre is an 82 yo M new to the consulting Hematology service. He has PMH significant for COPD, T2DM, CHF, atrial fibrillation, sleep apnea, HTN, bladder cancer s/p TURBT multiple times, at least since 2010. His urologist is in [place]- Dr. Romero. Patient presented to [facility] on 04/03/18 for generalized weakness, falls (3 prior to admission), and confusion. On 02/10/18, patient had urine culture positive for staph and treated with Macrobid. On 03/13/18 was found to have a UTI, treated with Cipro and TURBT delayed. On 03/27/18, patient underwent TURBT- showing high grade urothelial cancer with invasion into lamina propria and penis biopsy positive for metastatic urothelial cancer. Urrutia removed on . In the ED, patient's UA is suggestive of UTI. He was in the outpatient process of work up for lytic lesion found on plain XR of left LE- tibia; he was to have outpatient PET CT. His urologist believed that he had multiple myeloma. His MRI of lumbar spine reveals motion degraded exam with areas of marrow replacement involving the L4, L5and S2 vertebral bodies with areas of mild enhancement suggest metastatic disease from unknown primary or multiple myeloma as the primary differential considerations. 3.1 cm lesion of the posterior elements at L4 abuts the left posterior lateral epidural space without thecal extension, significant central canal or foraminal narrowing. Multilevel facet arthrosis and mostly mild discogenic degenerative changes. No evidence of pathologic fracture, high-grade central canal or foraminal narrowing. The skeletal survey shows small lytic lesion may be present in the distal left femoral metaphysis. Additionally, lucency in the left superior and inferior pubic rami raise concern for a lytic lesions. Radiation Oncology met with the patient today and are starting palliative XRT to lumbar spine and pelvis for bony mets. Concern for possibly a more proximal lesion in thoracic spine so Dr. Goetz obtaining MRI T spine. Additional history obtained from the patient at bedside. He is a poor historian. He states that his left hip has not been painful, despite records indicating that he was having left hip pain and causing him to have difficulty walking. He states he has more consistent low back pain, states is chronic, but worse more acutely. He denies any other area of bone pain. He states his lower extremities are weak but not with paresthesias. He states in past few weeks he became incontinent. He was having dysuria. He denies fever, sweats. He states his appetite has declined and he thinks he has lost some weight. He states he has chronic dyspnea and cough semiproductive of white phlegm- COPD history. He denies hemoptysis. He does state he does have an issue somewhat with dysphagia but he cannot be more specific. He has not had recurrent infections. Past Medical/Surgical History Medical Problems: (1) Retrosternal chest pain Status: Acute Family History Patient reports no known family medical history. Social History Smoking Status: Former Smoker Alcohol Use: none Marital Status: Occupation Status: retired Allergies Coded Allergies: Latex1 -Allergic Contact Dermititis (Verified Allergy, Unknown, LOCAL SKIN IRRITATION, 04/03/18) Cefuroxime (Verified Adverse Reaction, Mild, GI UPSET, 04/03/18) Penicillins (Verified Adverse Reaction, Mild, VOMITING, 04/03/18) Current Inpatient Medications Current Inpatient Medications Medications (Trade) Dose Ordered Sig/Clementina Route Start Time Stop Time Status Last Admin Dose Admin Acetaminophen (Tylenol Tab) 650 mg Q4H PRN PO 04/03/18 21:00 05/03/18 20:59 04/05/18 03:59 650 MG Ondansetron HCl (Zofran Inj) 4 mg Q6H PRN IV 04/03/18 21:00 05/03/18 20:59 Miscellaneous Information (Consult) 1 ea UD PRN N/A 04/03/18 21:28 05/03/18 21:27 Insulin Aspart (novoLOG ASPART) SLIDING SCALE If C... ACHS SC 04/04/18 06:30 05/04/18 06:59 04/04/18 18:39 3 UNITS Glucose (Glucose 40% Gel) 15-30 GRAMS 15 GRAMS... UD PRN PO 04/03/18 21:15 05/03/18 21:14 Glucose (Glucose Chew Tab) 4-8 Tablets 4 Tabl... UD PRN PO 04/03/18 21:15 05/03/18 21:14 Dextrose (Dextrose 50% 50ML Syringe) 25-50ML 25ML FOR ... UD PRN IV 04/03/18 21:15 05/03/18 21:14 Glucagon (Glucagon Inj) 1 mg UD PRN SQ 04/03/18 21:15 05/03/18 21:14 Carbohydrates (Carbohydrates For Hypoglycemia) 15-30 GRAMS 15 grams if BSG 54-69... UD PRN PO 04/03/18 21:15 05/03/18 21:14 04/04/18 07:21 15 GM Atorvastatin Calcium (Lipitor Tab) 80 mg QPM PO 04/03/18 22:00 05/03/18 21:59 04/04/18 20:53 80 MG Acetaminophen/ Hydrocodone Bitart ([place] 5/325 Tab) 1 tab Q4H PRN PO 04/03/18 21:30 04/17/18 21:29 04/05/18 09:40 1 TAB Lisinopril (Zestril Tab) 10 mg DAILY PO 04/04/18 08:00 05/04/18 08:59 04/05/18 09:41 10 MG Metoprolol Tartrate (Lopressor Tab) 50 mg BID PO 04/04/18 08:00 05/04/18 08:59 04/05/18 09:41 50 MG Tamsulosin HCl (Flomax Cap) 0.4 mg DAILY PO 04/04/18 08:00 05/04/18 08:59 04/05/18 09:40 0.4 MG Miscellaneous Information (Order Awaiting Action) 1 ea QS N/A 04/04/18 00:00 05/04/18 00:00 Vancomycin HCl 1250 mg/Sodium Chloride 275 ml @ 125 mls/hr Q20H IV 04/04/18 18:00 04/13/18 17:59 04/04/18 18:35 125 MLS/HR Sodium Chloride 1,000 ml @ 100 mls/hr Q10H IV 04/04/18 13:15 05/04/18 13:14 Future Hold 04/04/18 13:23 100 MLS/HR Gadobutrol (Gadavist) 8.5 mmol UD PRN IV 04/04/18 17:15 04/08/18 17:14 Dextrose/Sodium Chloride 1,000 ml @ 75 mls/hr [id number] IV 04/04/18 19:05 05/04/18 19:04 04/05/18 09:42 75 MLS/HR Menthol (Nice Sabrina) 1 sabrina PRN PRN SABRINA 04/04/18 22:00 05/04/18 21:59 Review of Systems Constitutional: + weakness, + fatigue, No fever Respiratory: + cough, + sputum, + shortness of breath Cardiovascular: No chest pain, No edema Abdomen: No pain, No nausea, No vomiting, No GI bleeding Musculoskeletal: + problem reported (see HPI) Genitourinary - Male: + dysuria, + urinary incontinence, + lesions (of penis- patient does not recall when they appeared) Neurologic: + memory loss, + balance problems, No numbness/tingling Hematologic / Lymphatic: No night sweats Physical Exam Date Time Temp Pulse Resp B/P (MAP) Pulse Ox O2 Delivery O2 Flow Rate FiO2 04/05/18 07:25 36.5 104 20 134/71 (92) 95 Room Air 04/05/18 00:00 95 Room Air 04/04/18 23:29 37.0 78 18 107/59 (75) 95 Room Air 04/04/18 20:55 108 127/72 (90) 04/04/18 17:14 Room Air 04/04/18 15:27 36.9 98 18 100/62 (75) 93 Room Air General Appearance: WD/WN, + mild distress Neck: no adenopathy Respiratory/Chest: lungs clear, normal breath sounds Cardiovascular: + pertinent finding (distant heart tones) Abdomen/GI: no organomegaly, + distended Genitourinary - Male: + pertinent finding (was present for Dr. Goetz's exam which revealed lesions on penis and inguinal adenopathy per his report) Extremities/Musculoskelatal: no pedal edema Neurologic/Psych: alert, oriented x 3 Skin: no rash Laboratory Results Last 24 Hours Test 04/04/18 11:37 04/04/18 17:54 04/04/18 18:24 04/04/18 20:57 Bedside Glucose 71 mg/dl 52 mg/dl 76 mg/dl 86 mg/dl Test 04/05/18 06:25 04/05/18 07:55 04/05/18 09:41 White Blood Count 10.51 K/uL Red Blood Count 4.28 M/uL Hemoglobin 13.7 g/dL Hematocrit 40.0 % Mean Corpuscular Volume 93.5 fL Mean Corpuscular Hemoglobin 32.0 pg Mean Corpuscular Hemoglobin Concent 34.3 g/dl Platelet Count 227 K/uL Mean Platelet Volume 9.0 fL Neutrophils (%) (Auto) 71.1 % Lymphocytes (%) (Auto) 17.5 % Monocytes (%) (Auto) 10.0 % Eosinophils (%) (Auto) 0.9 % Basophils (%) (Auto) 0.1 % Neutrophils # (Auto) 7.48 K/uL Lymphocytes # (Auto) 1.84 K/uL Monocytes # (Auto) 1.05 K/uL Eosinophils # (Auto) 0.09 K/uL Basophils # (Auto) 0.01 K/uL RDW Standard Deviation 48.3 fL RDW Coefficient of Variation 14.1 % Immature Granulocyte % (Auto) 0.4 % Immature Granulocyte # (Auto) 0.04 K/uL Sodium Level 137 mmol/L Potassium Level 3.6 mmol/L Chloride Level 103 mmol/L Carbon Dioxide Level 28 mmol/L Anion Gap 6.0 mmol/L Blood Urea Nitrogen 26 mg/dl Creatinine 1.31 mg/dl Est Creatinine Clear Calc Drug Dose 46.3 ml/min Estimated GFR () 58.4 Estimated GFR (Non- 50.3 BUN/Creatinine Ratio 20.0 Random Glucose 79 mg/dl Calcium Level 9.6 mg/dl Total Bilirubin 1.2 mg/dl Aspartate Amino Transf (AST/SGOT) 40 U/L Alanine Aminotransferase (ALT/SGPT) 21 U/L Alkaline Phosphatase 160 U/L Total Protein 6.0 gm/dl Albumin 2.2 gm/dl Globulin 3.8 gm/dl Albumin/Globulin Ratio 0.6 Prothrombin Time 39.5 SECONDS Prothromb Time International Ratio 3.9 Lumbar MRI from 04/04/18: 1. Motion degraded exam with areas of marrow replacement involving the L4, L5 and S2 vertebral bodies with areas of mild enhancement suggest metastatic disease from unknown primary or multiple myeloma as the primary differential considerations. 3.1 cm lesion of the posterior elements at L4 abuts the left posterior lateral epidural space without thecal extension, significant central canal or foraminal narrowing. 2. Multilevel facet arthrosis and mostly mild discogenic degenerative changes as detailed above. 3. No evidence of pathologic fracture, high-grade central canal or foraminal narrowing. Skeletal survey from 04/04/18: 1. Suspicious lesions in L4, L5, and S2 visible on MR of the lumbar spine performed earlier today are not radiographically apparent. Radiographic evaluation of the skeletal structures has limited sensitivity. Allowing for this, a small lytic lesion may be present in the distal left femoral metaphysis. Additionally, lucency in the left superior and inferior pubic rami raise concern for a lytic lesions. If the patient has a history of multiple myeloma or other malignancy, PET/CT could be considered which may have better sensitivity. Assessment & Plan 1. 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 Lower extremity weakness 3. Low back pain likely secondary to # 1 * Recommend staging evaluation with CT chest/abd/pelvis- IV not advised with CKD - primary service aware * Also get a bone scan for staging- primary service aware * Multiple myeloma not suspected- no anemia prior to admission, hypercalcemia * SPEP, FLCs pending * Patient to receive palliative XRTto lumbar and sacral spine, possibly left superior and inferior ramus- patient will start tomorrow per RO * Thoracic spine MRI pending to see if cord compression higher up causing LE weakness * Dr. Goetz also planning for steroid for LE weakness * Patient will need follow up with medical oncology on discharge Thanks for the consult. Dr. Miranda is the attending medical oncologist- please see his addendum I performed history and physical examination of the patient. ~I have discussed the patient's case, impression and plan with Jocelyn Liu PA-C. Her note reflects my findings and plan. In summary he is a 82-year-old male, diagnosed a case of low-grade urothelial bladder carcinoma in 2010, had TUR beat the earlier in October 2017 which showed high-grade urothelial carcinoma with lamina propria invasion and possible lymphovascular invasion, had another TUR beat the intimate 2016, once again it shows same pathologic, also noticed to penile lesion, biopsy from that confirmed metastatic high-grade urothelial carcinoma. Now admitted in hospital for increasing weakness, some leg weakness, some confusional status, increasing lower back pain and pelvic pain, MRI of the lumbar spine showed lytic lesion at L4 vertebral body, small or lesions noted in L5 and S2 vertebral body, bone survey shows some lytic lesions involving the superior and inferior left pubic ramus. He had a urinary retention, required urrutia's catheter placement. No hematuria. Dr. Goetz saw him in the hospital, planning to start radiation treatment to the symptomatic lumbar spine lesion and I agree about that. He will have thoracic spine MRI, CT scan of chest, CT scan of the abdomen pelvis for further metastatic workup. Will also get a bone scan for further evaluation. Systemic chemotherapy or immunotherapy can be considered for metastatic urothelial carcinoma but not sure about his oral clinical condition with that he would be a candidate for that or not, I'm planning to see him in the clinic as an outpatient and will decide about systemic treatment in his case. Overall clinical picture does not appear to be multiple myeloma. Jay Mrianda MD Hem/Onc
--- NOTE | 2018-04-05 10:09 | Radiation Oncology Consult ---
Radiation Oncology Consult Date / Reason April 05, 2018. Dr. Roy had contacted me and asked if I would see Mr. Greene for evaluation of the role of palliative radiation. Physicians Medical Oncologist: Dr. Shawna Mota Radiation Oncologist: Dr. 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 Greene is an 82-year-old male who recently presented to the emergency department with complaint of generalized weakness, recent falls, confusion and pain. The patient has been under the care of Dr. Romero a urologist at [facility] for a bladder tumor. He recently was found to have a UTI with urine cultures positive for staph treated with Macrobid. He was again seen by urology, Dr. Romero on March 13 in preparation for a TURBT and was found to have a recurrent UTI treated with Cipro. On June 09, 2011 the patient underwent a TURBT which identified a bladder tumor. This was a papillary urothelial carcinoma low-grade with no lamina propria invasion identified. Case : [id number]. Patient on March 27, 2018 patient underwent a TURBT with temporary Eubanks post procedure. Pathology from that procedure will be obtained. 11/07/2017. Patient undergoes TURBT. From left wall bladder tumor revealed an invasive high-grade papillary urothelial carcinoma demonstrating invasion into the lamina propria. Indefinite for focal lymphovascular invasion. Muscularis propria is present. The base of tumor TURBT also revealed a high-grade papillary urothelial carcinoma demonstrating focal invasion into the lamina propria with indefinite focal lymphovascular invasion. Muscularis propria is present. The left orifice revealed ulceration with chronic inflammation but no evidence of urothelial dysplasia or carcinoma. The left ureter revealed ulceration with chronic inflammation but no evidence of urothelial dysplasia or carcinoma. Pathology number: [id number]. 03/27/2018. Patient undergoes repeat TURBT preliminary report is high-grade papillary urothelial carcinoma. Biopsy of the penis revealed an invasive carcinoma consistent with urothelial type, pathology number: [id number]. The patient has noted decreasing leg strength over the past 2 weeks and has had 3 falls over the past 3 days prior to admission. He did note some head injury on 1 of the falls but no loss of consciousness. Over the past month the patient has noted increasing confusion but no neurologic signs reported. He recently has noted increasing pain in the lower back and pelvic region. 04/03/2018. Patient undergoes head CT scan without contrast. No acute intracranial abnormalities were noted. There were no evidence of skull lesions appreciated. Chest x-ray revealed cardiomegaly with no martha pulmonary edema or acute cardiopulmonary disease. 04/04/2018. Patient undergoes MRI of the lumbar spine. This reveals a focal area of marrow replacement involving the posterior aspect of L4 vertebral body measuring 2.4 x 2.0 x 2.8 cm. The signal extended into the left pedicle and the posterior elements. In addition a lesion was involving the left L4 lamina and transverse process measuring up to 3.1 x 2.4 cm with a suggested soft tissue component measuring 1.2 x 1.3 cm. This lesion caused mild mass-effect upon the left posterior lateral epidural space without thecal extension or significant central canal narrowing. There was no evidence of pathologic fracture. Also noted was a small area in the L5 vertebral body measuring 1.0 x 1.5 cm and a small 8 mm lesion in the S2 vertebral body. A skeletal survey revealed a lucency in the left superior and inferior pubic rami consistent with a lytic lesion. PET CT scan was initially planned but due to his admission has not yet been performed. Patient presently is having pain even at rest located in the low back and in the scrotal region. This appears to be consistent with the finding of disease at L4 and in the left superior and inferior pubic rami. These were lytic lesions noted on plain film with no evidence of disease in the skull. Prior history of a low-grade bladder tumor in 2010 and recent TURBT will need to be evaluated as this may now have developed into a higher grade lesion that could be the cause of his bony metastatic disease. Other causes could be a myeloma though his lab work is less consistent. Patient is to be seen by Dr. Jay Miranda for further evaluation and diagnostic recommendations as necessary. Past History Past Medical/Surgical History: Atrial Fibrillation, Diabetes Type 2, Reflux, Cancer, High Cholesterol, Sleep Apnea, Hypertension Social History Smoking Status: Former Smoker Hx Tobacco Use In Past Year?: No (quit 1999) Do You Dip or Chew Tobacco: No Hx Alcohol Use: No Hx Substance Use : No Allergies Coded Allergies: Latex1 -Allergic Contact Dermititis (Verified Allergy, Unknown, LOCAL SKIN IRRITATION, 04/03/18) Cefuroxime (Verified Adverse Reaction, Mild, GI UPSET, 04/03/18) Penicillins (Verified Adverse Reaction, Mild, VOMITING, 04/03/18) Home Medications Scheduled Atorvastatin (Lipitor), 80 MG PO QPM Fluticasone Furoate-Vilanterol (Breo Ellipta), 1 PUFFS INH DAILY Fluticasone Propionate (Nasal) (Flonase Allergy Relief), 2 SPRAY CAROLANN DAILY Furosemide (Lasix), 60 MG PO QAM Glimepiride (Glimepiride), 1 TAB PO BID Lisinopril (Zestril), 10 MG PO DAILY Metoprolol Tartrate (Lopressor) (Lopressor), 50 MG PO BID Tamsulosin Hcl (Flomax), 0.4 MG PO DAILY Warfarin Sod (Jantoven), 5 MG PO TuTh Warfarin Sodium (Coumadin), 7.5 MG PO SuMoWeFrSa Scheduled PRN Hydrocodone/Acetaminophen 5MG/325MG ([place] 5MG/325MG), 1 TABLET PO Q4H PRN for Pain Ipratropium-Albuterol (Duoneb), 1 TREATMENT INH Q4H PRN for CONGESTION Review of Systems Head: Headaches: No Additional Comments: He did fall and have a head injury over this past week. He had a CT of the head for evaluation which revealed no intracranial lesions or hemorrhage. Eyes: Additional Comments: He has no complaints of visual changes. Ear/Hearing: Ear Side: Bilateral Hearing Ability: Hard of Hearing Hearing Aid: None Gastrointestinal: Gastrointestinal: WNL Edema: Present?: No Urinary: Comments: See history of present illness Respiratory: Symptoms: Moist Cough, COPD, SOB Psychological: Symptoms: Calm Additional Comments He had confusion on admission and this is improved. Comments: A distress management report will be completed at the time of his CT simulation. Physical Exam ECOG Performance Status: 3 Height: 5 (Feet) 11.00 (Inches) 180.3 (Centimeters) 1.8034 (Meters) Weight: 190 (Pounds) 4.1 (Ounces) 86.300 (Kilograms) 93579.000 (Grams) Date Time Temp Pulse Resp B/P (MAP) Pulse Ox O2 Delivery O2 Flow Rate FiO2 04/05/18 07:25 36.5 104 20 134/71 (92) 95 Room Air 04/05/18 00:00 95 Room Air 04/04/18 23:29 37.0 78 18 107/59 (75) 95 Room Air 04/04/18 20:55 108 127/72 (90) 04/04/18 17:14 Room Air 04/04/18 15:27 36.9 98 18 100/62 (75) 93 Room Air General Appearance: + mild distress (Due to back pain) Head: normocephalic Eyes: normal inspection, EOMI ENT: normal ENT inspection, hearing grossly normal Neck: no adenopathy Respiratory/Chest: no respiratory distress, no accessory muscle use, + decreased breath sounds Cardiovascular: + irregularly irregular Abdomen/GI: soft, + pertinent finding (Mild right lower quadrant tenderness. No rebound or guarding.) Genitourinary - Male: + penile abnormality (He has a firm lesion of the entire shaft of the penis. There is a 2 x 1 cm mass of the right scrotum. There is no adenopathy of the groin. Bladder is at 500 cc when evaluated at CT simulation.) Extremities: no pedal edema Neurologic/Psych: alert, normal mood/affect, + pertinent finding (Normal sensory examination. Decreased strength of lower extremities left greater than right.) Skin: warm/dry Pain Management Patient Reports Pain: Yes Side: Bilateral Pain Location: Back Patient Preferred Pain Scale: 0 - 10 Initial Pain Intensity: 8.0 Level of Consciousness: Spontaneously Alert Relief Measures: Medication - Oral Pain Intervention: See [facility] Pain Management Plan Pain management through the hospitalist. Radiation will be given for palliation of pain. Laboratory Laboratory Results: were reviewed Pathology Pathology Results: were reviewed, and pertinent findings noted in HPI Pathology Comments Previous pathology from 2010 is reviewed. Will obtain pathology from [place] from most recent TURBT. Imaging Imaging Studies: were reviewed, and pertinent findings noted below Imaging Comments Patient: HYACINTH GREENE Address1: [address] [place] [address] Rec: [id number] Address2: Acct ID: [id number] [facility] Zip: [place] [address] Date: 1935 Sex: M Room/Bed: E418-1 Ref Phy: Robby Gallegos D.O. SC: Mirna Att Phy: Demarcus Roy M.D. Report #: [id number] Mahsa Phy: Robby Gallegos D.O. Test: LSCO Admit Phy: Vidya Staples M.D. Planting Material Remover: ROGER Interpreting Phy: Norbert Anderson D.O. Diagnosis: UTI Ordering Phy: Demarcus Roy M.D. Service Date: 04/04/18 Admit Date: 04/03/1805/14/18 MNE: [id number] CONF: DICTATED BY: Norbert Anderson D.O.]] CC: Robby Gallegos D.O. Wong, Gary K., M.D. Endcc: [~ rep ct add3]] LUMBAR SPINE COMBINATION CLINICAL HISTORY: 82 years-old Male with rule out lesions or spinal cord compression. Acute back pain with recent falls COMPARISON: Skeletal survey of same day TECHNIQUE: Multiplanar, multi sequence MRI of the lumbar spine was performed both with and without the use of 8.5 mL Gadavist FINDINGS: Large [id number] load checker localizer images demonstrate no gross abnormality. The study is motion degraded, notably the postcontrast images are motion degraded. Focal area of marrow replacement involving the posterior aspect of the L4 vertebral body measures 2.4 x 2.0 x 2.8 cm, image 10 series 5 and image 10 series 4 which demonstrates decreased T1 and increased T2/STIR signal extending into the left pedicle and posterior elements. Additionally, there is a lesion of the left L4 lamina and transverse process measuring up to 3.1 x 2.4 cm which demonstrates decreased T1 and increased T2 signal with enhancement and suggested soft tissue component measuring 12 x 13 mm on image 17 series 9. This lesion causes mild mass effect upon the left posterior lateral epidural space without thecal extension or significant central canal narrowing. No evidence of pathologic fracture. Additionally, there are focal areas of decreased T1 and increased T2 STIR signal about the L5 vertebral body measuring 1.0 and 1.5 cm, image 11 of series 5 and series 4. 8 mm lesion of the S2 vertebral body. There may be some minimal peripheral enhancement of the 1.0 cm lesion, image 22 series 9. There is no aortic aneurysm or bulky adenopathy identified. Epidural lipomatosis is noted about the lower lumbar spine at L4-L5 and L5-S1. Signal within the imaged thoracic spinal cord is normal. Conus medullaris terminates at the T12-L1 level. The cauda equina appear normal. Moderate soft tissue edema about the left facet at L4-L5. T12-L1: Disc desiccation and mild spondylitic spurring and mild facet arthrosis. No central canal or foraminal narrowing. L1-L2: Mild disc desiccation and spondylotic spurring with small circumferential annular disc bulge and moderate facet arthrosis. No central canal or foraminal narrowing. L2-L3: Minimal spondylitic spurring and mild to moderate facet arthrosis with ligamentum flavum thickening. No central canal or foraminal narrowing. L3-L4: Disc desiccation with mild intervertebral disc space narrowing and mild spondylitic spurring with circumferential annular disc bulge, moderate facet arthrosis and ligamentum flavum thickening. Disc bulge favors the left paracentral distribution, left lateral recess and left foramen causing mild left lateral recess and mild left foraminal narrowing. The canal is patent. There is also mild right foraminal stenosis. L4-L5: Mild intervertebral disc space narrowing with disc desiccation, spondylitic spurring and circumferential annular disc bulge with moderate facet arthrosis and ligamentum flavum thickening causing flattening of the ventral thecal sac without significant central canal stenosis. Mild right foraminal narrowing. The left foramen is patent. L5-S1: No significant intervertebral disc space narrowing. Mild spondylitic spurring with moderate facet arthrosis and ligamentum flavum thickening. Mild right foraminal narrowing. Central canal and left foramen are patent. IMPRESSION: 1. Motion degraded exam with areas of marrow replacement involving the L4, L5 and S2 vertebral bodies with areas of mild enhancement suggest metastatic disease from unknown primary or multiple myeloma as the primary differential considerations. 3.1 cm lesion of the posterior elements at L4 abuts the left posterior lateral epidural space without thecal extension, significant central canal or foraminal narrowing. 2. Multilevel facet arthrosis and mostly mild discogenic degenerative changes as detailed above. 3. No evidence of pathologic fracture, high-grade central canal or foraminal narrowing. The above report was generated using voice recognition software. It may contain grammatical, syntax or spelling errors. Electronically signed by: Puneet Anderson M.D. 04/04/2018 6:43 PM Dictated Date/Time: 04/04/2018 5:57 PM Treatment Options I spoke with Mr. Greene about the possibility of palliative radiation to the areas of lytic disease at L4, L5 and possibly S2. I would also consider treating the left superior and inferior pubic ramus as sites of metastatic disease. I spoke with him about the use of palliative radiation and the patient was in agreement. We will have him come down later this morning for a CT simulation. I hope to start his course of palliative treatment which would consist of 10 fractions tomorrow. Assessment & Recommendations In summary Mr. Greene is an 82-year-old male diagnosed in 2010 with a low- grade urothelial bladder tumor. He has been followed recently by his urologist , Dr. Romero at [facility] and is been treated for previous UTIs. He underwent a recent TURBT on November 06, 2017 with finding of high-grade urothelial carcinoma with lamina propria invasion and possible lymphovascular invasion. He underwent a second TURBT on March 27 with pathology revealing high- grade urothelial carcinoma of the bladder. Biopsy of the penis also revealed high-grade urothelial carcinoma the penis. Patient was recently admitted with increasing generalized weakness, increasing leg weakness, episodes of confusion but no central neurologic findings and pain in the lower back and pelvic region. He underwent MRI of the lumbar spine and skeletal survey which showed evidence of lytic disease at L4 with involvement of the lateral process and posterior elements. With a smaller lesion at L5 and a 8 mm lesion of S2. In addition on skeletal survey there was lytic destruction of the superior and inferior left pubic rami. I met with the patient in explained these findings. I told him that we think it is likely related to his history of bladder cancer. Recent pathology confirmed transformation to a higher grade urothelial carcinoma also involvement of the penis with urothelial high-grade carcinoma. I discussed with the patient the use of palliative radiation and told him we would treat with 10 fractions to the area of his pain. The patient was in agreement with this. Due to the distention of the bladder and frequency the patient may benefit from placement of a Eubanks catheter. This may require urology consultation for placement of the catheter due to the large penile lesion. Due to the bilateral leg weakness the patient should be evaluated with a MRI of the Thoracic spine also to ensure that there are no areas of cord compression. He will be brought to the department at 11 but we will obtain his consent for treatment and proceed with a CT simulation. We will then plan his course of palliative radiation and hope to start his treatment tomorrow afternoon. This treatment would consist of 10 fractions that would be started in the hospital but could not be continued and completed following discharge as appropriate. I will discuss this plan with the Dr. Jay Miranda when she has had a chance to evaluate this patient and will coordinate care as necessary. Thank you for allowing us to participate in the care of this patient. This chart was completed in part utilizing [employer] Speech Voice Recognition software. Attempts were made to minimize the grammatical errors, random word insertions, pronoun errors and incomplete sentences. Any formal questions or concerns about the content, text or information contained within the body of this dictation should be directly addressed to the provider for clarification. Marito Goetz MD Department of Radiation Oncology [facility] Total Time In Consultation I spent 20 minutes speaking to the patient in performing examination. I spent 15 minutes reviewing information and completing this note. AK Total Time (Attending) I spent 20 minutes in discussion of the x-ray findings, likely treatment of his symptoms and course of palliative radiation. I spent 20 minutes reviewing his scans with radiology, reviewing his chart and obtaining old records and in preparation of this document. MARIA DEL ROSARIO Copy To Robby Gallegos D.O.; Shawna Mota MD; Cj Romero MD; Demarcus Roy M.D. Problem Qualifiers (1) Bladder cancer: Bladder location: unspecified site Qualified Codes: C67.9 - Malignant neoplasm of bladder, unspecified
--- NOTE | 2018-04-05 11:02 | Medical Consult ---
Consultation Date of Consultation: April 05, 2018. Attending Physician: Demarcus Roy M.D. Reason for Consultation: Urine with coag-negative staph with antibiotic resistance History of Present Illness 82-year-old male with history of bladder cancer status post TUR BT, with several recent urinary tract infections 1st treated with Macrodantin and then ciprofloxacin, who was admitted to the hospital with several days of progressively worsening weakness, fatigue, and multiple falls, with pain in his legs and back. Was found to have evidence of bony metastases and is being evaluated for palliative radiation therapy. Urinalysis shows evidence of urinary tract infection and urine now growing a relatively resistant coagulase- negative Staph. Patient has been afebrile, now it is complaining of significant urinary complaints at present time. Denies any flank pain. Past Medical/Surgical History Medical Problems: (1) Retrosternal chest pain Status: Acute Medical Problems: (1) Atrial fibrillation (2) Bladder cancer (3) Chronic diastolic CHF (congestive heart failure) (4) CKD (chronic kidney disease), stage III (5) COPD (chronic obstructive pulmonary disease) (6) DM type 2 (diabetes mellitus, type 2) (7) Dyslipidemia (8) GERD (gastroesophageal reflux disease) (9) Hypertension (10) STEPHENIE (obstructive sleep apnea) Surgical Problems: (1) H/O inguinal hernia repair (2) Hx of cataract surgery (3) TURBT Family History Patient reports no known family medical history. Social History Smoking Status: Former Smoker Alcohol Use: none Marital Status: Occupation Status: retired Allergies Coded Allergies: Latex1 -Allergic Contact Dermititis (Verified Allergy, Unknown, LOCAL SKIN IRRITATION, 04/03/18) Cefuroxime (Verified Adverse Reaction, Mild, GI UPSET, 04/03/18) Penicillins (Verified Adverse Reaction, Mild, VOMITING, 04/03/18) Current Inpatient Medications Current Inpatient Medications Medications (Trade) Dose Ordered Sig/Clementina Route Start Time Stop Time Status Last Admin Dose Admin Acetaminophen (Tylenol Tab) 650 mg Q4H PRN PO 04/03/18 21:00 05/03/18 20:59 04/05/18 03:59 650 MG Ondansetron HCl (Zofran Inj) 4 mg Q6H PRN IV 04/03/18 21:00 05/03/18 20:59 Miscellaneous Information (Consult) 1 ea UD PRN N/A 04/03/18 21:28 05/03/18 21:27 Insulin Aspart (novoLOG ASPART) SLIDING SCALE If C... ACHS SC 04/04/18 06:30 05/04/18 06:59 04/04/18 18:39 3 UNITS Glucose (Glucose 40% Gel) 15-30 GRAMS 15 GRAMS... UD PRN PO 04/03/18 21:15 05/03/18 21:14 Glucose (Glucose Chew Tab) 4-8 Tablets 4 Tabl... UD PRN PO 04/03/18 21:15 05/03/18 21:14 Dextrose (Dextrose 50% 50ML Syringe) 25-50ML 25ML FOR ... UD PRN IV 04/03/18 21:15 05/03/18 21:14 Glucagon (Glucagon Inj) 1 mg UD PRN SQ 04/03/18 21:15 05/03/18 21:14 Carbohydrates (Carbohydrates For Hypoglycemia) 15-30 GRAMS 15 grams if BSG 54-69... UD PRN PO 04/03/18 21:15 05/03/18 21:14 04/04/18 07:21 15 GM Atorvastatin Calcium (Lipitor Tab) 80 mg QPM PO 04/03/18 22:00 05/03/18 21:59 04/04/18 20:53 80 MG Acetaminophen/ Hydrocodone Bitart ([place] 5/325 Tab) 1 tab Q4H PRN PO 04/03/18 21:30 04/17/18 21:29 04/05/18 09:40 1 TAB Lisinopril (Zestril Tab) 10 mg DAILY PO 04/04/18 08:00 05/04/18 08:59 04/05/18 09:41 10 MG Metoprolol Tartrate (Lopressor Tab) 50 mg BID PO 04/04/18 08:00 05/04/18 08:59 04/05/18 09:41 50 MG Tamsulosin HCl (Flomax Cap) 0.4 mg DAILY PO 04/04/18 08:00 05/04/18 08:59 04/05/18 09:40 0.4 MG Miscellaneous Information (Order Awaiting Action) 1 ea QS N/A 04/04/18 00:00 05/04/18 00:00 Vancomycin HCl 1250 mg/Sodium Chloride 275 ml @ 125 mls/hr Q20H IV 04/04/18 18:00 04/13/18 17:59 04/04/18 18:35 125 MLS/HR Sodium Chloride 1,000 ml @ 100 mls/hr Q10H IV 04/04/18 13:15 05/04/18 13:14 Future Hold 04/04/18 13:23 100 MLS/HR Gadobutrol (Gadavist) 8.5 mmol UD PRN IV 04/04/18 17:15 04/08/18 17:14 Dextrose/Sodium Chloride 1,000 ml @ 75 mls/hr [id number] IV 04/04/18 19:05 05/04/18 19:04 04/05/18 09:42 75 MLS/HR Menthol (Nice Sabrina) 1 sabrina PRN PRN SABRINA 04/04/18 22:00 05/04/18 21:59 Review of Systems All systems were reviewed and are negative except as per HPI Physical Exam Date Time Temp Pulse Resp B/P (MAP) Pulse Ox O2 Delivery O2 Flow Rate FiO2 04/05/18 08:00 Room Air 04/05/18 07:25 36.5 104 20 134/71 (92) 95 Room Air 04/05/18 00:00 95 Room Air 04/04/18 23:29 37.0 78 18 107/59 (75) 95 Room Air 04/04/18 20:55 108 127/72 (90) 04/04/18 17:14 Room Air 04/04/18 15:27 36.9 98 18 100/62 (75) 93 Room Air General Appearance: WD/WN, no apparent distress Head: normocephalic, atraumatic Eyes: normal inspection, EOMI, sclerae normal ENT: normal ENT inspection, pharynx normal Neck: supple, no adenopathy, thyroid normal, trachea midline Respiratory/Chest: chest non-tender, lungs clear, normal breath sounds, no respiratory distress Cardiovascular: regular rate, rhythm, no gallop, no murmur Abdomen/GI: normal bowel sounds, non tender, soft, no organomegaly Back: normal inspection, no CVA tenderness Extremities/Musculoskelatal: no calf tenderness, normal capillary refill, non- tender Neurologic/Psych: alert, oriented x 3 Skin: normal color, warm/dry, no rash Lymphatic: no adenopathy Laboratory Results RUN DATE: 04/05/18 [facility] LAB PAGE 1 RUN TIME: 1003 Specimen Inquiry PATIENT: HYACINTH GREENE Chris LOC: [facility] U # : [id number] AGE/SX: 82/M ROOM: 18 REG : 04/03/[address]: Demarcus Roy M.D. : 1935 BED: 1 DIS : STATUS: ADM IN TLOC: SPEC #: [id number] ZAHRA: 04/03/18 STATUS: COMP REQ #: [id number] RECD: 04/03/[address]: Ernesto Sun M.D. SOURCE: URINE CATH ENTR: 04/03/[address]: Robby Gallegos V. DAnnemarie SPDESC: ORDERED: CULTURE UR CATH Procedure Result Verified Site URINE CULTURE Final 04/05/18-1003 Organism 1 COAG NEG STAPHYLOCOCCUS COLONY COUNT >100,000 CFU/ml SENS SENSITIVITY TO FOLLOW 1. COAG NEG STAPHYLOCOCCUS Target Route Dose RX AB Cost M.I.C. IQ ------ ----- ------ -- ------ -------- - ------ TRIMET/SULFA R >2/38 * OXACILLIN R >2 VANCOMYCIN S 2 TETRACYCLINE R >8 DAPTOMYCIN S <=0.5 NITROFURANTOIN S <=32 S = SENSITIVE I = INTERMEDIATE R = RESISTANT Last 24 Hours Test 04/04/18 11:37 04/04/18 17:54 04/04/18 18:24 04/04/18 20:57 Bedside Glucose 71 mg/dl 52 mg/dl 76 mg/dl 86 mg/dl Test 04/05/18 06:25 04/05/18 07:55 04/05/18 09:41 04/05/18 09:48 White Blood Count 10.51 K/uL Red Blood Count 4.28 M/uL Hemoglobin 13.7 g/dL Hematocrit 40.0 % Mean Corpuscular Volume 93.5 fL Mean Corpuscular Hemoglobin 32.0 pg Mean Corpuscular Hemoglobin Concent 34.3 g/dl Platelet Count 227 K/uL Mean Platelet Volume 9.0 fL Neutrophils (%) (Auto) 71.1 % Lymphocytes (%) (Auto) 17.5 % Monocytes (%) (Auto) 10.0 % Eosinophils (%) (Auto) 0.9 % Basophils (%) (Auto) 0.1 % Neutrophils # (Auto) 7.48 K/uL Lymphocytes # (Auto) 1.84 K/uL Monocytes # (Auto) 1.05 K/uL Eosinophils # (Auto) 0.09 K/uL Basophils # (Auto) 0.01 K/uL RDW Standard Deviation 48.3 fL RDW Coefficient of Variation 14.1 % Immature Granulocyte % (Auto) 0.4 % Immature Granulocyte # (Auto) 0.04 K/uL Sodium Level 137 mmol/L Potassium Level 3.6 mmol/L Chloride Level 103 mmol/L Carbon Dioxide Level 28 mmol/L Anion Gap 6.0 mmol/L Blood Urea Nitrogen 26 mg/dl Creatinine 1.31 mg/dl Est Creatinine Clear Calc Drug Dose 46.3 ml/min Estimated GFR () 58.4 Estimated GFR (Non- 50.3 BUN/Creatinine Ratio 20.0 Random Glucose 79 mg/dl Calcium Level 9.6 mg/dl Total Bilirubin 1.2 mg/dl Aspartate Amino Transf (AST/SGOT) 40 U/L Alanine Aminotransferase (ALT/SGPT) 21 U/L Alkaline Phosphatase 160 U/L Total Protein 6.0 gm/dl Albumin 2.2 gm/dl Globulin 3.8 gm/dl Albumin/Globulin Ratio 0.6 Prothrombin Time 39.5 SECONDS Prothromb Time International Ratio 3.9 Bedside Glucose 148 mg/dl Patient Name: HYACINTH GREENE Unit Number: [id number] Dictated: 04/04/18 1757 Transcribed: 04/04/18 1815 JOSE Printed Date/Time: [~ rep prt dt]/[~ rep prt tm] [~ rep ct labl] - [~ rep ct ivnm] [facility] [place] [address] Dictated: 04/04/181756 Transcribed: 04/04/181814 JOSE Printed Date/Time: [~ rep prt dt]/[~ rep prt tm] [~ rep ct labl] - [~ rep ct ivnm] [~ rep ct add3]] LUMBAR SPINE COMBINATION CLINICAL HISTORY: 82 years-old Male with rule out lesions or spinal cord compression. Acute back pain with recent falls COMPARISON: Skeletal survey of same day TECHNIQUE: Multiplanar, multi sequence MRI of the lumbar spine was performed both with and without the use of 8.5 mL Gadavist FINDINGS: Large [id number] pillow agent localizer images demonstrate no gross abnormality. The study is motion degraded, notably the postcontrast images are motion degraded. Focal area of marrow replacement involving the posterior aspect of the L4 vertebral body measures 2.4 x 2.0 x 2.8 cm, image 10 series 5 and image 10 series 4 which demonstrates decreased T1 and increased T2/STIR signal extending into the left pedicle and posterior elements. Additionally, there is a lesion of the left L4 lamina and transverse process measuring up to 3.1 x 2.4 cm which demonstrates decreased T1 and increased T2 signal with enhancement and suggested soft tissue component measuring 12 x 13 mm on image 17 series 9. This lesion causes mild mass effect upon the left posterior lateral epidural space without thecal extension or significant central canal narrowing. No evidence of pathologic fracture. Additionally, there are focal areas of decreased T1 and increased T2 STIR signal about the L5 vertebral body measuring 1.0 and 1.5 cm, image 11 of series 5 and series 4. 8 mm lesion of the S2 vertebral body. There may be some minimal peripheral enhancement of the 1.0 cm lesion, image 22 series 9. There is no aortic aneurysm or bulky adenopathy identified. Epidural lipomatosis is noted about the lower lumbar spine at L4-L5 and L5-S1. Signal within the imaged thoracic spinal cord is normal. Conus medullaris terminates at the T12-L1 level. The cauda equina appear normal. Moderate soft tissue edema about the left facet at L4-L5. T12-L1: Disc desiccation and mild spondylitic spurring and mild facet arthrosis. No central canal or foraminal narrowing. L1-L2: Mild disc desiccation and spondylotic spurring with small circumferential annular disc bulge and moderate facet arthrosis. No central canal or foraminal narrowing. L2-L3: Minimal spondylitic spurring and mild to moderate facet arthrosis with ligamentum flavum thickening. No central canal or foraminal narrowing. L3-L4: Disc desiccation with mild intervertebral disc space narrowing and mild spondylitic spurring with circumferential annular disc bulge, moderate facet arthrosis and ligamentum flavum thickening. Disc bulge favors the left paracentral distribution, left lateral recess and left foramen causing mild left lateral recess and mild left foraminal narrowing. The canal is patent. There is also mild right foraminal stenosis. L4-L5: Mild intervertebral disc space narrowing with disc desiccation, spondylitic spurring and circumferential annular disc bulge with moderate facet arthrosis and ligamentum flavum thickening causing flattening of the ventral thecal sac without significant central canal stenosis. Mild right foraminal narrowing. The left foramen is patent. L5-S1: No significant intervertebral disc space narrowing. Mild spondylitic spurring with moderate facet arthrosis and ligamentum flavum thickening. Mild right foraminal narrowing. Central canal and left foramen are patent. IMPRESSION: 1. Motion degraded exam with areas of marrow replacement involving the L4, L5 and S2 vertebral bodies with areas of mild enhancement suggest metastatic disease from unknown primary or multiple myeloma as the primary differential considerations. 3.1 cm lesion of the posterior elements at L4 abuts the left posterior lateral epidural space without thecal extension, significant central canal or foraminal narrowing. 2. Multilevel facet arthrosis and mostly mild discogenic degenerative changes as detailed above. 3. No evidence of pathologic fracture, high-grade central canal or foraminal narrowing. The above report was generated using voice recognition software. It may contain grammatical, syntax or spelling errors. Electronically signed by: Puneet Anderson M.D. 04/04/2018 6:43 PM Dictated Date/Time: 04/04/2018 5:57 PM The status of this report is Signed. Draft = Not yet reviewed or approved by Radiologist. Signed = Reviewed and approved by Radiologist. <AttendingPhy>Demarcus Roy M.D.</AttendingPhy> <FamilyPhy>Robby Gallegos D.OJim</FamilyPhy> <PrimaryPhy>Robby Gallegos D.O.</PrimaryPhy> <UnitNumber> [id number]</UnitNumber> <VisitNumber>[id number]</VisitNumber> <PatientName> HYACINTH GREENE</PatientName> <DateOfBirth>1935</DateOfBirth> <Location> C[facility]</Location> <ServiceDate>04/03/18</ServiceDate> <MNE>ESINDI</MNE> < OrderingPhy>Demarcus Roy M.D.</OrderingPhy> <OrderingPhyMNE>f rep ord dr nazario</ OrderingPhyMNE> <DictatingPhyMNE>f rep dict dr nazario</DictatingPhyMNE> <CCListMNE> f rep ct mne</CCListMNE> <AdmittingPhyMNE>f pt admit dr nazario</AdmittingPhyMNE> < AttendingPhyMNE>f pt attend dr nazario</AttendingPhyMNE> <ConsultingPhyMNE>f pt consult dr nazario</ConsultingPhyMNE> <FamilyPhyMNE>f pt fam dr nazario</FamilyPhyMNE> <OtherPhyMNE>f pt other dr nazario</OtherPhyMNE> < PrimaryPhyMNE>f pt prim care dr nazario</PrimaryPhyMNE> <ReferringPhyMNE>f pt referring dr nazario</ReferringPhyMNE> Assessment & Plan Urinary tract infection with coagulase negative Staph in the setting of recent instrumentation and resection of bladder tumor, now likely with metastatic disease. Patient will be treated with linezolid 600 mg b.i.d. for 10 days. Will follow.
[2018-04-05] MEDS ORDERED: VANCOMYCIN TROUGH ONE (13:30)
[2018-04-05 14:59] VITALS: BP 113/71; PULSE 94; TEMP 36.9; O2SAT 93
--- NOTE | 2018-04-05 16:06 | Urology Consultation ---
History General Date of Service: April 05, 2018. Chief Complaint: Urinary retention Primary Care Physician: Robby Gallegos D.O. Pt seen a urologist before?: Yes (Dr. Romero) If yes, why?: bladder cancer History of Present Illness 82-year-old male admitted with generalized weakness, recent falls, confusion. Patient with history of bladder cancer diagnosed in May 2011. He underwent repeat TURBT with Dr. Romero at [facility] on March 27, 2018. 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 He also underwent a biopsy of the penis at that time which is positive for invasive carcinoma consistent with urothelial type as well. MRI on admission consistent with lytic lesions: IMPRESSION: 1. Motion degraded exam with areas of marrow replacement involving the L4, L5 and S2 vertebral bodies with areas of mild enhancement suggest metastatic disease from unknown primary or multiple myeloma as the primary differential considerations. 3.1 cm lesion of the posterior elements at L4 abuts the left posterior lateral epidural space without thecal extension, significant central canal or foraminal narrowing. 2. Multilevel facet arthrosis and mostly mild discogenic degenerative changes as detailed above. 3. No evidence of pathologic fracture, high-grade central canal or foraminal narrowing. consulted for urinary retention. Urrutia Catheter placed by RN for greater than 500 mLs of clear urine return. Patient reports improvement in bladder discomfort since Urrutia placement. Imaging Imaging: CT Laboratory Last 24 Hours Test 04/04/18 17:54 04/04/18 18:24 04/04/18 20:57 04/05/18 06:25 Bedside Glucose 52 mg/dl 76 mg/dl 86 mg/dl White Blood Count 10.51 K/uL Red Blood Count 4.28 M/uL Hemoglobin 13.7 g/dL Hematocrit 40.0 % Mean Corpuscular Volume 93.5 fL Mean Corpuscular Hemoglobin 32.0 pg Mean Corpuscular Hemoglobin Concent 34.3 g/dl Platelet Count 227 K/uL Mean Platelet Volume 9.0 fL Neutrophils (%) (Auto) 71.1 % Lymphocytes (%) (Auto) 17.5 % Monocytes (%) (Auto) 10.0 % Eosinophils (%) (Auto) 0.9 % Basophils (%) (Auto) 0.1 % Neutrophils # (Auto) 7.48 K/uL Lymphocytes # (Auto) 1.84 K/uL Monocytes # (Auto) 1.05 K/uL Eosinophils # (Auto) 0.09 K/uL Basophils # (Auto) 0.01 K/uL RDW Standard Deviation 48.3 fL RDW Coefficient of Variation 14.1 % Immature Granulocyte % (Auto) 0.4 % Immature Granulocyte # (Auto) 0.04 K/uL Sodium Level 137 mmol/L Potassium Level 3.6 mmol/L Chloride Level 103 mmol/L Carbon Dioxide Level 28 mmol/L Anion Gap 6.0 mmol/L Blood Urea Nitrogen 26 mg/dl Creatinine 1.31 mg/dl Est Creatinine Clear Calc Drug Dose 46.3 ml/min Estimated GFR () 58.4 Estimated GFR (Non- 50.3 BUN/Creatinine Ratio 20.0 Random Glucose 79 mg/dl Calcium Level 9.6 mg/dl Total Bilirubin 1.2 mg/dl Aspartate Amino Transf (AST/SGOT) 40 U/L Alanine Aminotransferase (ALT/SGPT) 21 U/L Alkaline Phosphatase 160 U/L Total Protein 6.0 gm/dl Albumin 2.2 gm/dl Globulin 3.8 gm/dl Albumin/Globulin Ratio 0.6 Test 04/05/18 07:55 04/05/18 09:41 04/05/18 09:48 04/05/18 12:28 Prothrombin Time 39.5 SECONDS Prothromb Time International Ratio 3.9 Bedside Glucose 148 mg/dl 156 mg/dl Test 04/05/18 12:53 Problem List Medical Problems: (1) Retrosternal chest pain Status: Acute Past History A Fib, cancer (bladder cancer), congestive heart failure, COPD, diabetes, GERD, high cholesterol, hypertension, renal disease (stage III), other (obstructive sleep apnea) Past Surgical History: other (TURBT , 03-27-2018 ) Family History Patient reports no known family medical history. Social History Hx Tobacco Use In Past Year?: No (quit 1999) Smoking: other (former smoker ) Alcohol: never Marital status: ( 1 month ago ) Housing status: lives with family Occupation status: retired Immunizations History of Influenza Vaccine: Yes Influenza Vaccine Date: Aug 24, 2017 History of Tetanus Vaccine?: Yes Tetanus Immunization Date: Sep 20, 2012 History of Pneumococcal: Yes Pneumococcal Date: Jun 05, 2015 History of MDRO No Allergies Coded Allergies: Latex1 -Allergic Contact Dermititis (Verified Allergy, Unknown, LOCAL SKIN IRRITATION, 04/03/18) Cefuroxime (Verified Adverse Reaction, Mild, GI UPSET, 04/03/18) Penicillins (Verified Adverse Reaction, Mild, VOMITING, 04/03/18) Medications Home Medications: Home Meds and Scripts Medications Dose Route/Sig Max Daily Dose Days Date Category Dose Instructions [place] 5MG/325MG (Acetaminophen/Hydrocodone Bitart) Tab 1 Tablet PO Q4H PRN 04/03/18 Reported PRN PAIN Glimepiride 4 Mg Tab 1 Tab PO BID 90 04/03/18 Reported Flonase Allergy Relief (Fluticasone Propionate (Nasal)) 50 Mcg/Act Spr 2 Rice CAROLANN DAILY 04/03/18 Reported Flomax (Tamsulosin Hcl) 0.4 Mg Cap 0.4 Mg PO DAILY 04/03/18 Reported Duoneb (Ipratropium-Albuterol) 3 Ml Nebu 1 Treatment INH Q4H PRN 03/20/16 Reported Breo Ellipta (Fluticasone Furoate-Vilanterol) 1 Inh Inh 1 Puffs INH DAILY 03/20/16 Reported Lipitor (Atorvastatin Calcium) 80 Mg Tab 80 Mg PO QPM 03/20/16 Reported Zestril (Lisinopril) 20 Mg Tab 10 Mg PO DAILY 03/20/16 Reported Lasix (Furosemide) 40 Mg Tab 60 Mg PO QAM 03/20/16 Reported Coumadin (Warfarin Sodium) 5 Mg Tab 7.5 Mg PO SUMOWEFRSA 03/20/16 Reported Jantoven (Warfarin Sodium) 5 Mg Tab 5 Mg PO TUTH 11/15/13 Reported Lopressor (Metoprolol Tartrate) 50 Mg Tab 50 Mg PO BID 05/10/11 Reported Inpatient Medications: Current Inpatient Medications Medications (Trade) Dose Ordered Sig/Clementina Route Start Time Stop Time Status Last Admin Dose Admin Acetaminophen (Tylenol Tab) 650 mg Q4H PRN PO 04/03/18 21:00 05/03/18 20:59 04/05/18 03:59 650 MG Ondansetron HCl (Zofran Inj) 4 mg Q6H PRN IV 04/03/18 21:00 05/03/18 20:59 Insulin Aspart (novoLOG ASPART) SLIDING SCALE If C... ACHS SC 04/04/18 06:30 05/04/18 06:59 04/05/18 12:58 3 UNITS Glucose (Glucose 40% Gel) 15-30 GRAMS 15 GRAMS... UD PRN PO 04/03/18 21:15 05/03/18 21:14 Glucose (Glucose Chew Tab) 4-8 Tablets 4 Tabl... UD PRN PO 04/03/18 21:15 05/03/18 21:14 Dextrose (Dextrose 50% 50ML Syringe) 25-50ML 25ML FOR ... UD PRN IV 04/03/18 21:15 05/03/18 21:14 Glucagon (Glucagon Inj) 1 mg UD PRN SQ 04/03/18 21:15 05/03/18 21:14 Carbohydrates (Carbohydrates For Hypoglycemia) 15-30 GRAMS 15 grams if BSG 54-69... UD PRN PO 04/03/18 21:15 05/03/18 21:14 04/04/18 07:21 15 GM Atorvastatin Calcium (Lipitor Tab) 80 mg QPM PO 04/03/18 22:00 05/03/18 21:59 04/04/18 20:53 80 MG Acetaminophen/ Hydrocodone Bitart ([place] 5/325 Tab) 1 tab Q4H PRN PO 04/03/18 21:30 04/17/18 21:29 04/05/18 09:40 1 TAB Lisinopril (Zestril Tab) 10 mg DAILY PO 04/04/18 08:00 05/04/18 08:59 04/05/18 09:41 10 MG Metoprolol Tartrate (Lopressor Tab) 50 mg BID PO 04/04/18 08:00 05/04/18 08:59 04/05/18 09:41 50 MG Tamsulosin HCl (Flomax Cap) 0.4 mg DAILY PO 04/04/18 08:00 05/04/18 08:59 04/05/18 09:40 0.4 MG Miscellaneous Information (Order Awaiting Action) 1 ea QS N/A 04/04/18 00:00 05/04/18 00:00 Sodium Chloride 1,000 ml @ 100 mls/hr Q10H IV 04/04/18 13:15 05/04/18 13:14 Future Hold 04/04/18 13:23 100 MLS/HR Gadobutrol (Gadavist) 8.5 mmol UD PRN IV 04/04/18 17:15 04/08/18 17:14 Dextrose/Sodium Chloride 1,000 ml @ 75 mls/hr [id number] IV 04/04/18 19:05 05/04/18 19:04 04/05/18 09:42 75 MLS/HR Menthol (Nice Sabrina) 1 sabrina PRN PRN SABRINA 04/04/18 22:00 05/04/18 21:59 Linezolid (Zyvox Tab) 600 mg BID PO 04/05/18 20:00 04/15/18 19:59 Review of Systems Review of Systems Constitutional: No fever, No chills Eyes: No double vision Neurological: No dizzy Endocrine: No excessive thirst Gastrointestinal: No abdominal pain, No nausea, No vomiting Cardiovascular: No chest pain Respiratory: + problem reported (productive cough, coughing up clear fluid per the pt ), No shortness of breath Skin: No rash Musculoskeletal: + arthritis Male : No blood in urine Physical Exam Vital Signs: Vital Signs Past 12 Hours Date Time Temp Pulse Resp B/P (MAP) Pulse Ox O2 Delivery O2 Flow Rate FiO2 04/05/18 14:59 36.9 94 18 113/71 (85) 93 Room Air 04/05/18 08:00 Room Air 04/05/18 07:25 36.5 104 20 134/71 (92) 95 Room Air Physical Exam: General Appearance: no apparent distress Eyes: bilateral eyes normal inspection ENT: hearing grossly normal Neck: no JVD Respiratory/Chest: no respiratory distress, no accessory muscle use Cardiovascular: no JVD Extremities: normal inspection Neurologic/Psychiatric: alert, normal mood/affect, oriented x 3 Skin: normal color Assessment & Plan Assessment & Plan A/P: High-grade urothelial carcinoma with penile involvement; metastatic disease highly suspicious for bladder cancer as primary source; urinary retention, UTI AFVSS. Continue Linezolid per ID for UTI. Plan to leave urrutia catheter in place for now. May consider a trial of void prior to discharge. The pt is not a candidate for SP tube at this time considering his high-grade disease. If urrutia catheter fails or terminal operations manager plans for treatment initiated, would consider indefinite PCN placement. This can be discussed with his primary urologist Dr. Romero in outpatient f/u. If metastatic disease found to be bladder cancer in origin as suspected, the pt' s prognosis is poor at this time. Would consider initiating palliative care consult for planning. Thanks for the consult. Will continue to follow along with primary service. In addition to having concern about placing an S?P tune in cancerous bladder pt not a candidate with active infection Will check to make sure pt is on finasteride
--- NOTE | 2018-04-05 17:53 | DIAGNOSTIC IMAGING REPORT ---
(CHEST) THORAX WITHOUT CT DOSE: 440.41 mGy.cm HISTORY: Lumbar spine lesions. Assess for malignancy.. TECHNIQUE: Multiaxial CT images of the chest were performed without contrast. A dose lowering technique was utilized adhering to the principles of ALARA. COMPARISON: Chest CT 05/08/2011. FINDINGS: No pneumothorax. Trace left pleural effusion. There is chronic elevation of the left hemidiaphragm. The heart remains enlarged. Trace pericardial effusion, unchanged. No mediastinal or hilar lymphadenopathy. Mild calcified plaque within the normal caliber thoracic aorta. Incidental note is made of a cisterna chyli within the right retrocrural space. No suspicious lytic or blastic osseous lesions. Moderate cord material within the trachea. Suboptimal evaluation of the lungs due to the motion artifact. However, there are multiple new scattered subcentimeter pole nodules seen throughout the lungs. There are likely greater than 10 nodules . Dominant nodule seen within the superior segment of the left lower lobe on image 75 measures 6 mm. Focal area of consolidation within the base of the left lower lobe. There is also crowding of the bronchi within this area of consolidation. This is slightly progressed compared the prior study but favors atelectasis. IMPRESSION: 1. Interval development of multiple subcentimeter bilateral pulmonary nodules with the largest measuring 6 mm. This is concerning for metastatic disease. 2. Focal area of consolidation at the base of the left lower lobe. This is indeterminate but favors atelectasis. An underlying pulmonary lesion would be difficult to exclude. Electronically signed by: Rowdy Hall M.D. 04/05/2018 5:51 PM Dictated Date/Time: 04/05/2018 5:42 PM
--- NOTE | 2018-04-05 19:21 | Progress Note ---
Internal Med Progress Note Date of Service: April 05, 2018. Provider Documentation: SUBJECTIVE: Patient s/p radiation oncology simulation and has good appetite. Despite being told that there is concern for metastatic cancer, patient appears to be taking the news well OBJECTIVE: Exam: General- no distress Eyes- EOMI Neck-no JVD Lungs- CTABL, no wheezing Heart- regular rate Abdomen- soft, nontender, + bowel sounds Extremities- no edema, can wiggle toes on both legs Neuro- speaks in full sentences ASSESSMENT & PLAN: GENERALIZED WEAKNESS, FALLS, CONFUSION / UTI (PRESENT ON ADMISSION) -CT head without contrast: No acute intracranial abnormality -Metabolic encephalopathy possibly due to Urinary tract infection -Patient has had previous history of of UTI and urinary tract procedure (02/10/18 -urine culture positive for staph, treated with Macrobid; placed on Cipro on for UTI, S/P TURBT on 03/27 in [place]) -Antibiotics on this hospital course: Positive UA on admission, S/P ceftriaxone in the ED; then placed on Vancomycin and Zosyn, urine culture as staph species coag neg with resistance to oxacillin, bactrim, tetracycline -Antibiotics switched on 04/05/18 to linezolid 600 mg b.i.d. for 10 days HISTORY OF BLADDER TUMOR/ BONY LESIONS / Malignancy / Ambulatory dysfunction -History of bladder CA diagnosed June 09, 2011 status post TURBT -Recurrence with TURBT November 07, 2017 finding of high-grade papillary urothelial carcinoma and TURBT on March 27, 2018 with finding of high-grade papillary urothelial carcinoma with focal invasion into the lamina propria and lymphovascular invasion; Follows with urologist in [place] (Dr. Romero) -multiple radiolucencies suggestive of Bony lesions found in the left tibia and fibula on outpatient X ray 02/2018 -MRI of lumbar spine: focal area of marrow replacement involving the posterior aspect of L4 vertebral body measuring 2.4 x 2.0 x 2.8 cm. The signal extended into the left pedicle and the posterior elements. In addition a lesion was involving the left L4 lamina and transverse process measuring up to 3.1 x 2.4 cm with a suggested soft tissue component measuring 1.2 x 1.3 cm. This lesion caused mild mass-effect upon the left posterior lateral epidural space without thecal extension or significant central canal narrowing. There was no evidence of pathologic fracture. Also noted was a small area in the L5 vertebral body measuring 1.0 x 1.5 cm and a small 8 mm lesion in the S2 vertebral body. -skeletal survey revealed a lucency in the left superior and inferior pubic rami consistent with a lytic lesion -Thoracic spine MRI pending -Radiation Oncology consulted and has simulated patient for planned radiation therapy -Have ordered SPEP/UPEP. Hematology/Oncology consulted -Hematology/Oncology also requested CT chest/ abdomen /pelvis, bone scan -The current results of Hematology.Oncology requested showing multiple subcentimeter bilateral pulmonary nodules with the largest measuring 6 mm. This is concerning for metastatic disease; Pulmonary consult requested Metastatic cancer workup as above, Palliative Care consult requested Urology Cancer as above CKD STAGE III, [place] improved with IV fluids Urrutia was placed for urinary retention, urology consult deems that a suprapubic urrutia is not warranted as this time CHRONIC DIASTOLIC CHF -Hold furosemide as breathing on room air ATRIAL FIBRILLATION -Rate controlled on metoprolol, will continue -Anticoagulated on Coumadin on admission 04/03/18 with initial INR 3.1, INR remains supratherapeutic as 4.5 on 04/04/18, 3.9 on 04/05/18, continue to hold coumadin for now HYPERTENSION -BP controlled, continue lisinopril and metoprolol DM TYPE II -Hgb A1c 7.3 01/2018 -Hold oral agents and utilize NovoLog protocol while hospitalized COPD -No signs of acute exacerbation -Continue home inhalers COCCYX/BUTTOCKS DECUBITUS ULCERS (PRESENT ON ADMISSION) -Wound care consult had been placed Physical Therapy initial assessment 04/04/18: pt unsafe and not functioning well enough to return home. He will need inpt rehab Continue PT/OT while being treated in the hospital DVT PROPHYLAXIS -Anticoagulated with supratherapeutic INR from previous Coumadin daughter Rafaela [phone] Vital Signs: Date Time Temp Pulse Resp B/P (MAP) Pulse Ox O2 Delivery O2 Flow Rate FiO2 04/05/18 16:00 Room Air 04/05/18 14:59 36.9 94 18 113/71 (85) 93 Room Air 04/05/18 08:00 Room Air 04/05/18 07:25 36.5 104 20 134/71 (92) 95 Room Air 04/05/18 00:00 95 Room Air 04/04/18 23:29 37.0 78 18 107/59 (75) 95 Room Air 04/04/18 20:55 108 127/72 (90) Lab Results: Results Past 24 Hours Test 04/04/18 20:57 04/05/18 06:25 04/05/18 07:55 04/05/18 09:41 Range/Units Bedside Glucose 86 70-99 mg/dl White Blood Count 10.51 4.8-10.8 K/uL Red Blood Count 4.28 4.7-6.1 M/uL Hemoglobin 13.7 14.0-18.0 g/dL Hematocrit 40.0 42-52 % Mean Corpuscular Volume 93.5 80-100 fL Mean Corpuscular Hemoglobin 32.0 25-34 pg Mean Corpuscular Hemoglobin Concent 34.3 32-36 g/dl Platelet Count 227 130-400 K/uL Mean Platelet Volume 9.0 7.4-10.4 fL Neutrophils (%) (Auto) 71.1 % Lymphocytes (%) (Auto) 17.5 % Monocytes (%) (Auto) 10.0 % Eosinophils (%) (Auto) 0.9 % Basophils (%) (Auto) 0.1 % Neutrophils # (Auto) 7.48 1.4-6.5 K/uL Lymphocytes # (Auto) 1.84 1.2-3.4 K/uL Monocytes # (Auto) 1.05 0.11-0.59 K/uL Eosinophils # (Auto) 0.09 0-0.5 K/uL Basophils # (Auto) 0.01 0-0.2 K/uL RDW Standard Deviation 48.3 36.4-46.3 fL RDW Coefficient of Variation 14.1 11.5-14.5 % Immature Granulocyte % (Auto) 0.4 % Immature Granulocyte # (Auto) 0.04 0.00-0.02 K/uL Sodium Level 137 136-145 mmol/L Potassium Level 3.6 3.5-5.1 mmol/L Chloride Level 103 98-107 mmol/L Carbon Dioxide Level 28 21-32 mmol/L Anion Gap 6.0 3-11 mmol/L Blood Urea Nitrogen 26 7-18 mg/dl Creatinine 1.31 0.60-1.40 mg/dl Est Creatinine Clear Calc Drug Dose 46.3 ml/min Estimated GFR () 58.4 Estimated GFR (Non- 50.3 BUN/Creatinine Ratio 20.0 10-20 Random Glucose 79 70-99 mg/dl Calcium Level 9.6 8.5-10.1 mg/dl Total Bilirubin 1.2 0.2-1 mg/dl Aspartate Amino Transf (AST/SGOT) 40 15-37 U/L Alanine Aminotransferase (ALT/SGPT) 21 12-78 U/L Alkaline Phosphatase 160 45-117 U/L Total Protein 6.0 6.4-8.2 gm/dl Albumin 2.2 3.4-5.0 gm/dl Globulin 3.8 2.5-4.0 gm/dl Albumin/Globulin Ratio 0.6 0.9-2 Prothrombin Time 39.5 9.0-12.0 SECONDS Prothromb Time International Ratio 3.9 0.9-1.1 Test 04/05/18 09:48 04/05/18 12:28 04/05/18 12:53 04/05/18 16:27 Range/Units Bedside Glucose 148 156 167 70-99 mg/dl
[2018-04-05 19:47] VITALS: BP 121/65; PULSE 100
[2018-04-05] MEDS: ATORVASTATIN 40 MG TAB PO SCH (19:49)
[2018-04-05] MEDS: LINEZOLID 600 MG TAB PO SCH (19:49)
[2018-04-05 19:53] VITALS: BP 129/74; PULSE 97; TEMP 36.8; O2SAT 95
--- NOTE | 2018-04-05 19:56 | DIAGNOSTIC IMAGING REPORT ---
ABDOMEN AND PELVIS CT WITH ORAL CONTRAST CT DOSE: 884.87 mGy.cm HISTORY: Lumbar spine lesions. Assess for malignancy TECHNIQUE: Multiaxial CT images of the abdomen and pelvis were performed following the use of oral contrast. A dose lowering technique was utilized adhering to the principles of ALARA. COMPARISON STUDY: Abdomen and pelvis CT 04/20/2012. FINDINGS: Please refer to the dedicated chest CT performed the same day for further evaluation of the lung bases. The heart is enlarged. There is elevation of the left hemidiaphragm. Slightly nodular contour to the liver suggestive of cirrhosis. No definite hepatic or splenic masses. Cholelithiasis. The unenhanced pancreas and adrenal glands are unremarkable. No hydronephrosis. Moderate bilateral perinephric edema is likely chronic. Bilateral renal hypodense lesions are similar to the prior study. These are technically indeterminate but favor cysts. No retroperitoneal lymphadenopathy. Bladder is decompressed by Eubanks catheter. Bladder wall thickening with surrounding fat stranding suggestive of a cystitis. Moderate thickening of the rectum with perirectal edema. The visualized appendix appears unremarkable. No evidence for bowel obstruction. No pneumoperitoneum. No pneumatosis. Subtle pathologic fracture within the superior endplate of L5. No associated loss of height at this time. Lytic lesion within the posterior elements of L4 destructive soft tissue mass is seen within the distal sacrum with soft tissue extension into the presacral space. This measures 4.7 x 1.5 cm. Additional destructive soft tissue masses seen within the right acetabulum and bilateral inferior and superior pubic rami. Pathologic fracture within the anterior column of the left acetabulum and left superior pubic ramus. Largest destructive mass within the left inferior pubic ramus measures 4.6 x 3.3 cm. IMPRESSION: 1. Multiple destructive soft tissue masses seen within the spine, sacrum, and pelvic bones as described above consistent with metastatic disease. 2. Moderate thickening of the rectum which is nonspecific. A rectal mass cannot be excluded. Consider endoscopy for further evaluation. 3. Bladder wall thickening with adjacent fat stranding consistent with a cystitis. The bladder is decompressed by a Eubanks catheter. 4. Pathologic fracture at the super endplate of L5 without significant loss of height. 5. Additional findings as described above. Electronically signed by: Rowdy Hall M.D. 04/05/2018 7:54 PM Dictated Date/Time: 04/05/2018 7:44 PM
--- NOTE | 2018-04-05 21:08 | Palliative Care Consultation ---
Consultation Date of Consultation: April 05, 2018. Requesting Physician: Dr. Roy Attending Physician: Dr. Roy Reason for Consultation: Goals of Care History of Present Illness This patient is an 82 year old male who presented to the hospital with increased LE weakness that has progressively worsened over the past month. The patient has urothelial Ca (Dx in 2010 s/p TURBT) with possible bone metastasis and penile involvement. Palliative radiation was discussed earlier today and the family will decide later tonight if they would like to proceed with such. If so, this could possibly start on 04/06. GOALS OF CARE was discussed over the phone with the patients daughter, Rafaela, who is only 17 years old, turning 18 in September 2018. I explained that while it is important to have her involved as the patient's daughter, her step-mother , Alla, who has clear decision making capability, be the official decision maker for her Dad. There are two other children for this patient, Ami Kearns and Johann Hammond. who are aware of the complexity of the patients condition. The patient is a FULL CODE currently. The family (Alla and Rafaela) will be coming back to the hospital on Tuesday, 04/07, for which we will have a family meeting at 1300. A POLST form will be completed at that time. The patient does live at home, but is progressively weak. A SNIF would be an appropriate transition for this patient from the hospital to allow for gentle rehabilitation with then either a transition home with hospice or remaining superintendent container terminal at a SN. Case management is looking into placement options. Upon assessment of this patient, the patient was pleasant, with intermittent confusion. He stated that he was not having pain as he was sitting up in the bed. He appeared comfortable. An indwelling urrutia was placed for urinary retention. I appreciate the palliative care consult and allowing us to participate in this patients care. We will follow accordingly. Past Medical/Surgical History Medical History: CHF COPD DM2 HLD STEPHENIE Chronic renal failure stage III Surgical History: TURBT Social History Smoking Status: Former Smoker History of Alcohol Use: No Marital Status: ( 1 month ago ) Housing Status: lives with family Occupation Status: retired Review of Systems General: patient appears comfortable at this time HEENT: patient denies visual changes, dizziness, SHAH CV: Patient denies CP, palpitations Resp: Patient denies SOB GI: pt abdominal pain, N/V/D Skin: no new skin rashes Allergies Coded Allergies: Latex1 -Allergic Contact Dermititis (Verified Allergy, Unknown, LOCAL SKIN IRRITATION, 04/03/18) Cefuroxime (Verified Adverse Reaction, Mild, GI UPSET, 04/03/18) Penicillins (Verified Adverse Reaction, Mild, VOMITING, 04/03/18) Medications Current Inpatient Medications Medications (Trade) Dose Ordered Sig/Clementina Route Start Time Stop Time Status Last Admin Dose Admin Acetaminophen (Tylenol Tab) 650 mg Q4H PRN PO 04/03/18 21:00 05/03/18 20:59 04/05/18 03:59 650 MG Ondansetron HCl (Zofran Inj) 4 mg Q6H PRN IV 04/03/18 21:00 05/03/18 20:59 Insulin Aspart (novoLOG ASPART) SLIDING SCALE If C... ACHS SC 04/04/18 06:30 05/04/18 06:59 04/05/18 17:58 6 UNITS Glucose (Glucose 40% Gel) 15-30 GRAMS 15 GRAMS... UD PRN PO 04/03/18 21:15 05/03/18 21:14 Glucose (Glucose Chew Tab) 4-8 Tablets 4 Tabl... UD PRN PO 04/03/18 21:15 05/03/18 21:14 Dextrose (Dextrose 50% 50ML Syringe) 25-50ML 25ML FOR ... UD PRN IV 04/03/18 21:15 05/03/18 21:14 Glucagon (Glucagon Inj) 1 mg UD PRN SQ 04/03/18 21:15 05/03/18 21:14 Carbohydrates (Carbohydrates For Hypoglycemia) 15-30 GRAMS 15 grams if BSG 54-69... UD PRN PO 04/03/18 21:15 05/03/18 21:14 04/04/18 07:21 15 GM Atorvastatin Calcium (Lipitor Tab) 80 mg QPM PO 04/03/18 22:00 05/03/18 21:59 04/05/18 19:49 80 MG Acetaminophen/ Hydrocodone Bitart ([place] 5/325 Tab) 1 tab Q4H PRN PO 04/03/18 21:30 04/17/18 21:29 04/05/18 09:40 1 TAB Lisinopril (Zestril Tab) 10 mg DAILY PO 04/04/18 08:00 05/04/18 08:59 04/05/18 09:41 10 MG Metoprolol Tartrate (Lopressor Tab) 50 mg BID PO 04/04/18 08:00 05/04/18 08:59 04/05/18 19:49 50 MG Tamsulosin HCl (Flomax Cap) 0.4 mg DAILY PO 04/04/18 08:00 05/04/18 08:59 04/05/18 09:40 0.4 MG Miscellaneous Information (Order Awaiting Action) 1 ea QS N/A 04/04/18 00:00 05/04/18 00:00 Sodium Chloride 1,000 ml @ 100 mls/hr Q10H IV 04/04/18 13:15 05/04/18 13:14 Future Hold 04/04/18 13:23 100 MLS/HR Gadobutrol (Gadavist) 8.5 mmol UD PRN IV 04/04/18 17:15 04/08/18 17:14 Menthol (Nice Sabrina) 1 sabrina PRN PRN SABRINA 04/04/18 22:00 05/04/18 21:59 Linezolid (Zyvox Tab) 600 mg BID PO 04/05/18 20:00 04/15/18 19:59 04/05/18 19:49 600 MG Finasteride (Proscar Tab) 5 mg QAM PO 04/06/18 08:00 05/06/18 07:59 Physical Exam Date Time Temp Pulse Resp B/P (MAP) Pulse Ox O2 Delivery O2 Flow Rate FiO2 04/05/18 19:53 36.8 97 20 129/74 (92) 95 Room Air 04/05/18 19:47 100 121/65 (83) 04/05/18 16:00 Room Air 04/05/18 14:59 36.9 94 18 113/71 (85) 93 Room Air 04/05/18 08:00 Room Air 04/05/18 07:25 36.5 104 20 134/71 (92) 95 Room Air 04/05/18 00:00 95 Room Air 04/04/18 23:29 37.0 78 18 107/59 (75) 95 Room Air 04/04/18 20:55 108 127/72 (90) General Appearance: no apparent distress Respiratory: chest non-tender, lungs clear, no accessory muscle use, + decreased breath sounds Cardiovascular: regular rate, rhythm, no edema, no gallop Abdomen: normal bowel sounds, non tender, soft Neurologic/Psychiatric: + pertinent finding (patient oriented to self and location - patient not able to comprehend the complexity of his condition withintermittent confusion) Laboratory Results Last 24 Hours Test 04/04/18 20:57 04/05/18 06:25 04/05/18 07:55 04/05/18 09:41 Bedside Glucose 86 mg/dl White Blood Count 10.51 K/uL Red Blood Count 4.28 M/uL Hemoglobin 13.7 g/dL Hematocrit 40.0 % Mean Corpuscular Volume 93.5 fL Mean Corpuscular Hemoglobin 32.0 pg Mean Corpuscular Hemoglobin Concent 34.3 g/dl Platelet Count 227 K/uL Mean Platelet Volume 9.0 fL Neutrophils (%) (Auto) 71.1 % Lymphocytes (%) (Auto) 17.5 % Monocytes (%) (Auto) 10.0 % Eosinophils (%) (Auto) 0.9 % Basophils (%) (Auto) 0.1 % Neutrophils # (Auto) 7.48 K/uL Lymphocytes # (Auto) 1.84 K/uL Monocytes # (Auto) 1.05 K/uL Eosinophils # (Auto) 0.09 K/uL Basophils # (Auto) 0.01 K/uL RDW Standard Deviation 48.3 fL RDW Coefficient of Variation 14.1 % Immature Granulocyte % (Auto) 0.4 % Immature Granulocyte # (Auto) 0.04 K/uL Sodium Level 137 mmol/L Potassium Level 3.6 mmol/L Chloride Level 103 mmol/L Carbon Dioxide Level 28 mmol/L Anion Gap 6.0 mmol/L Blood Urea Nitrogen 26 mg/dl Creatinine 1.31 mg/dl Est Creatinine Clear Calc Drug Dose 46.3 ml/min Estimated GFR () 58.4 Estimated GFR (Non- 50.3 BUN/Creatinine Ratio 20.0 Random Glucose 79 mg/dl Calcium Level 9.6 mg/dl Total Bilirubin 1.2 mg/dl Aspartate Amino Transf (AST/SGOT) 40 U/L Alanine Aminotransferase (ALT/SGPT) 21 U/L Alkaline Phosphatase 160 U/L Total Protein 6.0 gm/dl Albumin 2.2 gm/dl Globulin 3.8 gm/dl Albumin/Globulin Ratio 0.6 Prothrombin Time 39.5 SECONDS Prothromb Time International Ratio 3.9 Test 04/05/18 09:48 04/05/18 12:28 04/05/18 12:53 04/05/18 16:27 Bedside Glucose 148 mg/dl 156 mg/dl 167 mg/dl Test 04/05/18 20:20 Bedside Glucose 114 mg/dl Assessment & Plan Palliative Performance Scale: 50 % Palliative Care Encounter Goals of Care Bladder Ca Palliative Care Recommendations: -Continue with supportive measures -Patient family to contact providers to advise if they would like to proceed with palliative radiation tx - could start as early as 04/06 -Patient to remain FULL CODE until family meeting on Saturday 04/07 at 1300 with patient and daughter. POLST form to be completed at that time. -Case management to continue working on discharge planning to [facility] FAMILY CONTACTS: : Alla: [phone] Daughter: Rafaela - lives with Alla, but is 17 years old: [phone] Counseling and Coordination Total time spent 50 minutes with > 50% of that time reviewing the chart, assessing the patient, discussing goals of care with the patient and arranging a family meeting with the family.
[2018-04-06] VITALS (7 sets, daily range): BP systolic 106–136; BP diastolic 54–82; PULSE 63–102; TEMP 36.4–37.2; O2SAT 92–97
[2018-04-06] MEDS ORDERED: VANCOMYCIN TROUGH ONE (03:30)
[2018-04-06 06:56] LABS: BASO % 0.3 %; BASO ABS # 0.03 K/uL (0-0.2); EOS ABS # 0.11 K/uL (0-0.5); HEMATOCRIT 42.1 % (42-52); HEMOGLOBIN 14.2 g/dL (14.0-18.0); IG# 0.04 K/uL (0.00-0.02); LYMPH % 18.1 %; LYMPH ABS # 1.96 K/uL (1.2-3.4); MEAN CORPUSCULAR HEMOGLOBIN 31.7 pg (25-34); MEAN CORPUSCULAR HGB CONC 33.7 g/dl (32-36); MEAN PLATELET VOLUME 9.1 fL (7.4-10.4); MONO ABS # 1.09 K/uL (0.11-0.59); NEUT % 70.2 %; NEUT ABS # 7.62 K/uL (1.4-6.5); PLATELET COUNT 243 K/uL (130-400); RED CELL DISTRIBUTION WIDTH CV 14.1 % (11.5-14.5); RED CELL DISTRIBUTION WIDTH SD 48.3 fL (36.4-46.3); WHITE BLOOD COUNT 10.85 K/uL (4.8-10.8)
[2018-04-06 07:19] LABS: INR 4.1 (0.9-1.1)
[2018-04-06 07:32] LABS: ALBUMIN 2.3 gm/dl (3.4-5.0); CALCIUM 10.6 mg/dl (8.5-10.1); CREATININE 1.15 mg/dl (0.60-1.40); POTASSIUM 4.2 mmol/L (3.5-5.1)
[2018-04-06 07:34] LABS: TOTAL PROTEIN 6.6 gm/dl (6.4-8.2)
[2018-04-06] MEDS: TAMSULOSIN HCL 0.4 MG CAP PO SCH (08:41)
[2018-04-06] MEDS: METOPROLOL TARTRATE 50 MG TAB PO SCH ×2 (08:42→21:24)
[2018-04-06] MEDS: LISINOPRIL 20 MG TAB PO SCH (08:42)
[2018-04-06] MEDS: LINEZOLID 600 MG TAB PO SCH ×2 (08:42→21:22)
[2018-04-06] MEDS: INSULIN ASPART 100 UNITS/ML 3 ML PEN SC SCH ×4 (08:46→21:00)
[2018-04-06] MEDS: FINASTERIDE 5 MG TAB PO SCH (08:55)
--- NOTE | 2018-04-06 09:10 | Progress Note ---
Subjective Date of Service: April 06, 2018. Subjective Pt evaluation today including: conversation w/ patient, chart review, lab review Voiding: urrutia catheter in place (patent, draining clear, yellow urine ) 82 yo male with suspected metastatic bladder cancer invading the penis. Pt denies pain this morning. States he does not remember meeting me yesterday or our conversation. Palliative care consultation with family pending tomorrow. Problem List Medical Problems: (1) Retrosternal chest pain Status: Acute Review of Systems Constitutional: No fever, No chills Respiratory: No shortness of breath Cardiac: No chest pain Abdomen: No pain, No nausea, No vomiting Male : No hematuria Heme: No abnormal bleeding/bruising Objective Vital Signs Date Time Temp Pulse Resp B/P (MAP) Pulse Ox O2 Delivery O2 Flow Rate FiO2 04/06/18 07:28 36.4 99 20 134/82 (99) 96 Room Air 04/06/18 04:17 37.2 91 20 122/68 (86) 93 Room Air 04/06/18 00:26 36.5 63 22 136/54 (81) 92 Room Air 04/06/18 00:00 95 Room Air 04/05/18 20:00 Room Air 04/05/18 19:53 36.8 97 20 129/74 (92) 95 Room Air 04/05/18 19:47 100 121/65 (83) 04/05/18 16:00 Room Air 04/05/18 14:59 36.9 94 18 113/71 (85) 93 Room Air Physical Exam General Appearance: no apparent distress Eyes: normal inspection ENT: hearing grossly normal Neck: no JVD Respiratory/Chest: no respiratory distress, no accessory muscle use Cardiovascular: no JVD Extremities: normal inspection Neurologic/Psychiatric: alert, normal mood/affect, oriented x 3 Skin: normal color Laboratory Results Last 24 Hours Test 04/05/18 09:41 04/05/18 09:48 04/05/18 12:28 04/05/18 12:53 Bedside Glucose 148 mg/dl 156 mg/dl Test 04/05/18 16:27 04/05/18 20:20 04/06/18 06:36 04/06/18 07:37 Bedside Glucose 167 mg/dl 114 mg/dl 110 mg/dl White Blood Count 10.85 K/uL Red Blood Count 4.48 M/uL Hemoglobin 14.2 g/dL Hematocrit 42.1 % Mean Corpuscular Volume 94.0 fL Mean Corpuscular Hemoglobin 31.7 pg Mean Corpuscular Hemoglobin Concent 33.7 g/dl Platelet Count 243 K/uL Mean Platelet Volume 9.1 fL Neutrophils (%) (Auto) 70.2 % Lymphocytes (%) (Auto) 18.1 % Monocytes (%) (Auto) 10.0 % Eosinophils (%) (Auto) 1.0 % Basophils (%) (Auto) 0.3 % Neutrophils # (Auto) 7.62 K/uL Lymphocytes # (Auto) 1.96 K/uL Monocytes # (Auto) 1.09 K/uL Eosinophils # (Auto) 0.11 K/uL Basophils # (Auto) 0.03 K/uL RDW Standard Deviation 48.3 fL RDW Coefficient of Variation 14.1 % Immature Granulocyte % (Auto) 0.4 % Immature Granulocyte # (Auto) 0.04 K/uL Prothrombin Time 41.7 SECONDS Prothromb Time International Ratio 4.1 Sodium Level 137 mmol/L Potassium Level 4.2 mmol/L Chloride Level 104 mmol/L Carbon Dioxide Level 28 mmol/L Anion Gap 5.0 mmol/L Blood Urea Nitrogen 18 mg/dl Creatinine 1.15 mg/dl Est Creatinine Clear Calc Drug Dose 52.7 ml/min Estimated GFR () 68.3 Estimated GFR (Non- 58.9 BUN/Creatinine Ratio 15.3 Random Glucose 106 mg/dl Calcium Level 10.6 mg/dl Total Bilirubin 1.4 mg/dl Aspartate Amino Transf (AST/SGOT) 30 U/L Alanine Aminotransferase (ALT/SGPT) 22 U/L Alkaline Phosphatase 176 U/L Total Protein 6.6 gm/dl Albumin 2.3 gm/dl Globulin 4.3 gm/dl Albumin/Globulin Ratio 0.5 Assessment and Plan A/P: Bladder cancer with mets and invasion of the penis AFVSS. Continue finasteride. Continue Linezolid per ID. Continue urrutia catheter. Pt is not a candidate for SP tube in the setting of infection and high grade carcinoma. If ureters were to obstruct and renal function decline, the pt would need PCN placement. Prognosis is poor in the setting of metastatic bladder cancer. Agree with palliative care consult. No further management at this time. Will continue to follow the pt intermittently.
--- NOTE | 2018-04-06 09:27 | PULMONARY CONSULTATION ---
DATE OF CONSULTATION: 04/06/2018 REASON FOR CONSULTATION: Abnormal CT scan of the chest HISTORY OF PRESENT ILLNESS: An 82-year-old white male, was admitted to the hospital on 04/03/2018, because of generalized weakness and confusion. Apparently, the and daughter were at the bedside in the ER and able to converse with Elizabeth Marinelli, the [employer] who admitted the patient. The patient has been followed by urology at [place] for bladder carcinoma. On 02/10/2018, the patient's urine culture grew out Staph and he was treated with Macrobid. He was seen by urology on 03/13/2018 in preparation for TURBT and found to have a UTI and started on Cipro. On 03/27/2018, he underwent the procedure and had a Eubanks catheter placed postoperatively, which was removed on 03/31/2018. The urine was bloody after removal and he fell apparently striking his head. He has also had some diarrhea and poor p.o. intake. He was admitted to the hospital, felt to have a metabolic encephalopathy from a urinary tract infection. He was given IV ceftriaxone in the ED and then placed on vancomycin and Zosyn intravenously. He has been in chronic atrial fibrillation with the rate that has been controlled with metoprolol and he has also been on Coumadin. He has a history of chronic diastolic CHF, but Lasix had been on hold. His urologist is Dr. Romero. In October, he was found to have a left wall bladder tumor that was invasive, high-grade papillary urothelial carcinoma demonstrating invasion into the lamina propria and the base of the TURBT revealed a high-grade papillary urothelial carcinoma demonstrating focal invasion into the lamina propria. Also, biopsy of the penis revealed invasive carcinoma. MRI of the lumbar spine shows several suspicious areas at L4 as well as other regions. The patient is to be followed by Dr. Jay Miranda for further evaluation. I have been asked to see patient in consultation because of an abnormal CT scan of the chest. The patient does have a longstanding smoking history, having quit in the remote past. He has been diagnosed with COPD and remains quite dyspneic with minimal exertion at home, although he is not very active. He states he has had a severe cough for the past several weeks without hemoptysis or pleuritic pain. He does have some symptoms of dysphagia. 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 CT scan of the chest shows in comparison to previous CT scan of the chest on 05/08/2011 and this demonstrates interval development of multiple subcentimeter bilateral pulmonary nodules, the largest measuring 6 mm, worrisome for metastatic disease and also focal areas of consolidation at the base of the left lower lobe, and moderate material seen within the trachea. There is a dominant nodule seen in the superior segment of the left lower lobe. Once again, the consolidation at the left base is noted with crowding of the bronchi in that region. Cannot rule out an endobronchial obstruction. For details of past medical history, medications, family and social history, I refer you to current and past record. PHYSICAL EXAMINATION: GENERAL: Elderly white male, appearing cachectic and mildly dyspneic at rest. VITAL SIGNS: Temperature 36.4, pulse 99 and irregular, respiratory rate 20-24, blood pressure 134/82, O2 sat 96% on room air. SKIN: Warm and dry. HEENT: Atraumatic, normocephalic. PERRLA, EOMI. Conjunctivae pale. Sclerae nonicteric. Fundi poorly visualized. NECK: Neck veins are not distended at 45 degrees. No evidence of adenopathy in the supra or infraclavicular areas. LUNGS: Scattered rhonchi with decreased breath sounds at the left base. Hyperresonant. CARDIAC EXAM: Irregular rate and rhythm. I do not appreciate a gallop. ABDOMEN: Soft and scaphoid. EXTREMITIES: Trace pedal edema. No clubbing or peripheral cyanosis. NEUROLOGICAL: Cranial nerves II through XII grossly intact. No lateralizing signs. OVERALL ASSESSMENT: An 82-year-old white male with stage IV urothelial carcinoma with presence of multiple subcentimeter pulmonary nodules and left lower lobe atelectasis with bronchovascular crowding. The patient has a persistent cough. Ideally, patient should undergo bronchoscopic evaluation to make sure we are not dealing with endobronchial obstruction at the left lower lobe and at best mucoid impaction with distal atelectasis. The patient is anticoagulated and his PT/INR is 4.1 today that will need to be reversed or allowed to drift down before any procedure can be contemplated. We will discuss further with hospitalist service and his oncologist. The patient has been on CPAP at home, but because of problems with the device and his face mask, he has not worn it, although the unit is in his room. He also as of 2012, had nonobstructive coronary artery disease. Review of the sleep study in 2011 revealed an apnea and hypopnea index of 32.2 and he was tried on BiPAP titration because of the presence of both central and obstructive apnea. It is unclear to me whether he has a BIPAP unit at home or CPAP and what the settings currently are at. We will need to evaluate this. JAMI
[2018-04-06] MEDS ORDERED: ALBUTEROL 0.5% NEB SOLN 2.5 MG/0.5 ML VIAL INH STA (10:34)
[2018-04-06] MEDS ORDERED: PHYTONADIONE INJ 2.5 MG in SODIUM CHLORIDE 0.9% 50ML 50 ML IV ONE (12:30)
[2018-04-06] MEDS: HYDROCODONE/ACETAMIN 5/325MG TAB PO PRN (14:36)
[2018-04-06] MEDS ORDERED: GADAVIST IV PRN (17:15)
--- NOTE | 2018-04-06 18:37 | DIAGNOSTIC IMAGING REPORT ---
MRI OF THE THORACIC SPINE COMBO CLINICAL HISTORY: Prostate cancer. Lumbar spine lesions. Assess for metastatic disease. COMPARISON STUDY: Chest CT dated 04/05/2018. TECHNIQUE: MRI of the thoracic spine is performed utilizing various T1 and T2-weighted sequences in the axial and sagittal planes. Contrast-enhanced sequences were acquired following the IV administration of 8.5 cc of Gadavist. The examination is compromised by motion artifact. FINDINGS: Vertebral body height and alignment are maintained throughout the thoracic spine. Marrow signal intensity is heterogeneous. No destructive lesion is clearly identified. The transverse and spinous processes are intact as imaged. Tiny anterior osteophytes are seen in the lower thoracic region. Mild degenerative endplate edema is noted at T6-T7 and T7-T8. Degenerative disc desiccation and mild loss of height are seen throughout the thoracic spine. There is no large disc herniation. The central canal is widely patent. No significant neural foraminal stenosis is suggested throughout the thoracic spine. The thoracic spinal cord is normal in morphology and signal intensity. No abnormal enhancement is identified on the postcontrast sequences. IMPRESSION: 1. Motion compromised examination. 2. There is no convincing MRI evidence of metastatic disease involving the thoracic spine. 3. There is no disc herniation or central canal stenosis. 4. The thoracic spinal cord is normal in morphology and signal intensity. Dictated: 04/06/2018 6:10 PM Transcribed: 04/06/2018 6:37 PM [email or web address] Electronically signed by: Ernesto Polanco M.D. 04/06/2018 6:47 PM Dictated Date/Time: 04/06/2018 6:10 PM
--- NOTE | 2018-04-06 19:01 | Progress Note ---
Internal Med Progress Note Date of Service: April 06, 2018. Provider Documentation: SUBJECTIVE: Patient had some shortness of breath today but did better after a nebulizer treatment. Patient denies other concerns OBJECTIVE: Exam: General- no distress Eyes- EOMI Neck-no JVD Lungs- CTABL, no wheezing, breathing on room air Heart- regular rate Abdomen- soft, nontender, + bowel sounds Extremities- no edema, can wiggle toes on both legs Neuro- speaks in full sentences ASSESSMENT & PLAN: GENERALIZED WEAKNESS, FALLS, CONFUSION / UTI (PRESENT ON ADMISSION) -CT head without contrast: No acute intracranial abnormality -Metabolic encephalopathy possibly due to Urinary tract infection -Patient has had previous history of of UTI and urinary tract procedure (02/10/18 -urine culture positive for staph, treated with Macrobid; placed on Cipro on for UTI, S/P TURBT on 03/27 in [place]) -Antibiotics on this hospital course: Positive UA on admission, S/P ceftriaxone in the ED; then placed on Vancomycin and Zosyn, urine culture as staph species coag neg with resistance to oxacillin, bactrim, tetracycline -Antibiotics switched on 04/05/18 to linezolid 600 mg b.i.d. for 10 days HISTORY OF BLADDER TUMOR/ BONY LESIONS / Malignancy / Ambulatory dysfunction -History of bladder CA diagnosed June 09, 2011 status post TURBT -Recurrence with TURBT November 07, 2017 finding of high-grade papillary urothelial carcinoma and TURBT on March 27, 2018 with finding of high-grade papillary urothelial carcinoma with focal invasion into the lamina propria and lymphovascular invasion; Follows with urologist in [place] (Dr. Romero) -multiple radiolucencies suggestive of Bony lesions found in the left tibia and fibula on outpatient X ray 02/2018 -MRI of lumbar spine: focal area of marrow replacement involving the posterior aspect of L4 vertebral body measuring 2.4 x 2.0 x 2.8 cm. The signal extended into the left pedicle and the posterior elements. In addition a lesion was involving the left L4 lamina and transverse process measuring up to 3.1 x 2.4 cm with a suggested soft tissue component measuring 1.2 x 1.3 cm. This lesion caused mild mass-effect upon the left posterior lateral epidural space without thecal extension or significant central canal narrowing. There was no evidence of pathologic fracture. Also noted was a small area in the L5 vertebral body measuring 1.0 x 1.5 cm and a small 8 mm lesion in the S2 vertebral body. -skeletal survey revealed a lucency in the left superior and inferior pubic rami consistent with a lytic lesion -Thoracic spine MRI without lesions -Radiation Oncology following the patient for radiation therapy -Have ordered SPEP/UPEP. Hematology/Oncology consulted -Hematology/Oncology had requested CT chest/ abdomen /pelvis, bone scan -The current results of Hematology.Oncology requested showing multiple subcentimeter bilateral pulmonary nodules with the largest measuring 6 mm. This is concerning for metastatic disease; Pulmonary consult requested -Pulmonary service ealuated the patient on 04/06/18 and requested that hospitalist given vitamin K to reverse coumadin for possible consideration of bronchoscopy, vitamin K given -Metastatic cancer workup as above, Palliative Care consulted Urology Cancer as above CKD STAGE III, [place] improved with IV fluids Continue urrutia catheter for urinary retention. as per urology: Pt is not a candidate for SP tube in the setting of infection and high grade carcinoma. If ureters were to obstruct and renal function decline, the pt would need PCN placement. CHRONIC DIASTOLIC CHF -restart furosemide as low dose BID ATRIAL FIBRILLATION -Rate controlled on metoprolol, will continue -was Anticoagulated on Coumadin on admission, INR remains supratherapeutic, vitamin K given on 04/06/18 to reverse coumadin for possible consideration of bronchoscopy HYPERTENSION -BP controlled, continue lisinopril and metoprolol DM TYPE II -Hgb A1c 7.3 01/2018 -Hold oral agents and utilize NovoLog protocol while hospitalized COPD -No signs of acute exacerbation -Continue home inhalers COCCYX/BUTTOCKS DECUBITUS ULCERS (PRESENT ON ADMISSION) -Wound care consult Physical Therapy initial assessment 04/04/18: pt unsafe and not functioning well enough to return home. He will need inpt rehab Continue PT/OT while being treated in the hospital DVT PROPHYLAXIS -is supratherapeutic INR, was given Vitamin K, SCD would only be placed on right leg because of left leg pain/left leg lesions anatoliy Russo [phone] Vital Signs: Date Time Temp Pulse Resp B/P (MAP) Pulse Ox O2 Delivery O2 Flow Rate FiO2 04/06/18 12:53 68 20 96 Room Air 04/06/18 11:30 36.8 102 18 106/64 (78) 97 Nasal Cannula 2.0 04/06/18 08:45 Room Air 04/06/18 07:28 36.4 99 20 134/82 (99) 96 Room Air 04/06/18 04:17 37.2 91 20 122/68 (86) 93 Room Air 04/06/18 00:26 36.5 63 22 136/54 (81) 92 Room Air 04/06/18 00:00 95 Room Air 04/05/18 20:00 Room Air 04/05/18 19:53 36.8 97 20 129/74 (92) 95 Room Air 04/05/18 19:47 100 121/65 (83) Lab Results: Results Past 24 Hours Test 04/05/18 20:20 04/06/18 06:36 04/06/18 07:37 04/06/18 11:43 Range/Units Bedside Glucose 114 110 185 70-99 mg/dl White Blood Count 10.85 4.8-10.8 K/uL Red Blood Count 4.48 4.7-6.1 M/uL Hemoglobin 14.2 14.0-18.0 g/dL Hematocrit 42.1 42-52 % Mean Corpuscular Volume 94.0 80-100 fL Mean Corpuscular Hemoglobin 31.7 25-34 pg Mean Corpuscular Hemoglobin Concent 33.7 32-36 g/dl Platelet Count 243 130-400 K/uL Mean Platelet Volume 9.1 7.4-10.4 fL Neutrophils (%) (Auto) 70.2 % Lymphocytes (%) (Auto) 18.1 % Monocytes (%) (Auto) 10.0 % Eosinophils (%) (Auto) 1.0 % Basophils (%) (Auto) 0.3 % Neutrophils # (Auto) 7.62 1.4-6.5 K/uL Lymphocytes # (Auto) 1.96 1.2-3.4 K/uL Monocytes # (Auto) 1.09 0.11-0.59 K/uL Eosinophils # (Auto) 0.11 0-0.5 K/uL Basophils # (Auto) 0.03 0-0.2 K/uL RDW Standard Deviation 48.3 36.4-46.3 fL RDW Coefficient of Variation 14.1 11.5-14.5 % Immature Granulocyte % (Auto) 0.4 % Immature Granulocyte # (Auto) 0.04 0.00-0.02 K/uL Prothrombin Time 41.7 9.0-12.0 SECONDS Prothromb Time International Ratio 4.1 0.9-1.1 Sodium Level 137 136-145 mmol/L Potassium Level 4.2 3.5-5.1 mmol/L Chloride Level 104 98-107 mmol/L Carbon Dioxide Level 28 21-32 mmol/L Anion Gap 5.0 3-11 mmol/L Blood Urea Nitrogen 18 7-18 mg/dl Creatinine 1.15 0.60-1.40 mg/dl Est Creatinine Clear Calc Drug Dose 52.7 ml/min Estimated GFR () 68.3 Estimated GFR (Non- 58.9 BUN/Creatinine Ratio 15.3 10-20 Random Glucose 106 70-99 mg/dl Calcium Level 10.6 8.5-10.1 mg/dl Total Bilirubin 1.4 0.2-1 mg/dl Aspartate Amino Transf (AST/SGOT) 30 15-37 U/L Alanine Aminotransferase (ALT/SGPT) 22 12-78 U/L Alkaline Phosphatase 176 45-117 U/L Total Protein 6.6 6.4-8.2 gm/dl Albumin 2.3 3.4-5.0 gm/dl Globulin 4.3 2.5-4.0 gm/dl Albumin/Globulin Ratio 0.5 0.9-2 Test 04/06/18 15:39 04/06/18 17:44 Range/Units Bedside Glucose 124 70-99 mg/dl Microbiology Results 04/06/18 C.difficile Toxin B Gene (PCR) - Final, Complete No C. difficile toxin B gene detected
--- NOTE | 2018-04-06 20:28 | DIAGNOSTIC IMAGING REPORT ---
WHOLE-BODY NUCLEAR BONE SCAN CLINICAL HISTORY: Prostate cancer. COMPARISON STUDY: CT scans of the chest, abdomen, and pelvis dated 04/05/2018. Skeletal survey dated 04/04/2018. TECHNIQUE: Three hours following the IV administration of 27.7 mCi of technetium 99m MDP, whole body nuclear bone scan was performed in the anterior and posterior projections. FINDINGS: There is extensive abnormal tracer deposition identified. Large lesions are seen within the bony pelvis involving the pubic ramus bilaterally. Lesions are identified in the lower lumbar spine involving L4 and L5. This corresponds to the recent CT findings. Additional foci of abnormal activity are seen within the mid shaft of the left femur, the medial right femoral condyle, and throughout both tibia. No lesions identified involving the calvarium or bony thorax. An indeterminant focus of abnormal activity is seen in the left forearm Typically degenerative uptake is identified involving the shoulders, ankles, wrists, and feet. There is expected excreted activity within the renal collecting system and bladder. A Eubanks catheter is noted. IMPRESSION: Extensive foci of abnormal tracer deposition as above consistent with multifocal osseous metastatic disease. Electronically signed by: Ernesto Polanco M.D. 04/06/2018 8:27 PM Dictated Date/Time: 04/06/2018 8:22 PM
--- NOTE | 2018-04-06 20:50 | Infectious Disease Progress Nt ---
Progress Note Date of Service April 06, 2018. Subjective Pt evaluation today including: conversation w/ patient, physical exam, chart review, lab review, review of studies, conversation w/ [facility] consultant, review of inpatient medication list Had some shortness of breath earlier, improved after treatment with nebulizer. Remains afebrile. All Other Systems: Reviewed and Negative Medications Current Inpatient Medications Medications (Trade) Dose Ordered Sig/Clementina Route Start Time Stop Time Status Last Admin Dose Admin Acetaminophen (Tylenol Tab) 650 mg Q4H PRN PO 04/03/18 21:00 05/03/18 20:59 04/05/18 03:59 650 MG Ondansetron HCl (Zofran Inj) 4 mg Q6H PRN IV 04/03/18 21:00 05/03/18 20:59 Insulin Aspart (novoLOG ASPART) SLIDING SCALE If C... ACHS SC 04/04/18 06:30 05/04/18 06:59 04/06/18 18:18 4 UNITS Glucose (Glucose 40% Gel) 15-30 GRAMS 15 GRAMS... UD PRN PO 04/03/18 21:15 05/03/18 21:14 Glucose (Glucose Chew Tab) 4-8 Tablets 4 Tabl... UD PRN PO 04/03/18 21:15 05/03/18 21:14 Dextrose (Dextrose 50% 50ML Syringe) 25-50ML 25ML FOR ... UD PRN IV 04/03/18 21:15 05/03/18 21:14 Glucagon (Glucagon Inj) 1 mg UD PRN SQ 04/03/18 21:15 05/03/18 21:14 Carbohydrates (Carbohydrates For Hypoglycemia) 15-30 GRAMS 15 grams if BSG 54-69... UD PRN PO 04/03/18 21:15 05/03/18 21:14 04/04/18 07:21 15 GM Atorvastatin Calcium (Lipitor Tab) 80 mg QPM PO 04/03/18 22:00 05/03/18 21:59 04/05/18 19:49 80 MG Acetaminophen/ Hydrocodone Bitart ([place] 5/325 Tab) 1 tab Q4H PRN PO 04/03/18 21:30 04/17/18 21:29 04/06/18 14:36 1 TAB Lisinopril (Zestril Tab) 10 mg DAILY PO 04/04/18 08:00 05/04/18 08:59 04/06/18 08:42 10 MG Metoprolol Tartrate (Lopressor Tab) 50 mg BID PO 04/04/18 08:00 05/04/18 08:59 04/06/18 08:42 50 MG Tamsulosin HCl (Flomax Cap) 0.4 mg DAILY PO 04/04/18 08:00 05/04/18 08:59 04/06/18 08:41 0.4 MG Miscellaneous Information (Order Awaiting Action) 1 ea QS N/A 04/04/18 00:00 05/04/18 00:00 Sodium Chloride 1,000 ml @ 100 mls/hr Q10H IV 04/04/18 13:15 05/04/18 13:14 Future Hold 04/04/18 13:23 100 MLS/HR Gadobutrol (Gadavist) 8.5 mmol UD PRN IV 04/04/18 17:15 04/08/18 17:14 Menthol (Nice Morena) 1 morena PRN PRN MORENA 04/04/18 22:00 05/04/18 21:59 Linezolid (Zyvox Tab) 600 mg BID PO 04/05/18 20:00 04/15/18 19:59 04/06/18 08:42 600 MG Finasteride (Proscar Tab) 5 mg QAM PO 04/06/18 08:00 05/06/18 07:59 04/06/18 08:55 5 MG Gadobutrol (Gadavist) 8.5 mmol UD PRN IV 04/06/18 17:15 04/10/18 17:14 Furosemide (Lasix Tab) 20 mg BID17 PO 04/07/18 09:00 05/07/18 08:59 Objective Vital Signs Date Time Temp Pulse Resp B/P (MAP) Pulse Ox O2 Delivery O2 Flow Rate FiO2 04/06/18 20:03 36.5 86 20 128/75 (92) 94 Room Air 04/06/18 12:53 68 20 96 Room Air 04/06/18 11:30 36.8 102 18 106/64 (78) 97 Nasal Cannula 2.0 04/06/18 08:45 Room Air 04/06/18 07:28 36.4 99 20 134/82 (99) 96 Room Air 04/06/18 04:17 37.2 91 20 122/68 (86) 93 Room Air 04/06/18 00:26 36.5 63 22 136/54 (81) 92 Room Air 04/06/18 00:00 95 Room Air Physical Exam General Appearance: WD/WN, no apparent distress Eyes: normal inspection, EOMI, sclerae normal ENT: normal ENT inspection, pharynx normal Neck: supple, no adenopathy, thyroid normal, trachea midline Respiratory/Chest: chest non-tender, lungs clear, normal breath sounds, no respiratory distress Cardiovascular: regular rate, rhythm, no gallop, no murmur Abdomen: normal bowel sounds, soft, no organomegaly, + tenderness (Suprapubic) Extremities: non-tender, no calf tenderness Neurologic/Psychiatric: alert, oriented x 3 Skin: normal color, warm/dry, no rash Lymphatic: no adenopathy Laboratory Results Last 24 Hours Test 04/06/18 06:36 04/06/18 07:37 04/06/18 11:43 04/06/18 15:39 White Blood Count 10.85 K/uL Red Blood Count 4.48 M/uL Hemoglobin 14.2 g/dL Hematocrit 42.1 % Mean Corpuscular Volume 94.0 fL Mean Corpuscular Hemoglobin 31.7 pg Mean Corpuscular Hemoglobin Concent 33.7 g/dl Platelet Count 243 K/uL Mean Platelet Volume 9.1 fL Neutrophils (%) (Auto) 70.2 % Lymphocytes (%) (Auto) 18.1 % Monocytes (%) (Auto) 10.0 % Eosinophils (%) (Auto) 1.0 % Basophils (%) (Auto) 0.3 % Neutrophils # (Auto) 7.62 K/uL Lymphocytes # (Auto) 1.96 K/uL Monocytes # (Auto) 1.09 K/uL Eosinophils # (Auto) 0.11 K/uL Basophils # (Auto) 0.03 K/uL RDW Standard Deviation 48.3 fL RDW Coefficient of Variation 14.1 % Immature Granulocyte % (Auto) 0.4 % Immature Granulocyte # (Auto) 0.04 K/uL Prothrombin Time 41.7 SECONDS Prothromb Time International Ratio 4.1 Sodium Level 137 mmol/L Potassium Level 4.2 mmol/L Chloride Level 104 mmol/L Carbon Dioxide Level 28 mmol/L Anion Gap 5.0 mmol/L Blood Urea Nitrogen 18 mg/dl Creatinine 1.15 mg/dl Est Creatinine Clear Calc Drug Dose 52.7 ml/min Estimated GFR () 68.3 Estimated GFR (Non- 58.9 BUN/Creatinine Ratio 15.3 Random Glucose 106 mg/dl Calcium Level 10.6 mg/dl Total Bilirubin 1.4 mg/dl Aspartate Amino Transf (AST/SGOT) 30 U/L Alanine Aminotransferase (ALT/SGPT) 22 U/L Alkaline Phosphatase 176 U/L Total Protein 6.6 gm/dl Albumin 2.3 gm/dl Globulin 4.3 gm/dl Albumin/Globulin Ratio 0.5 Bedside Glucose 110 mg/dl 185 mg/dl Test 04/06/18 17:44 04/06/18 20:42 Bedside Glucose 124 mg/dl 154 mg/dl Assessment and Plan (1) Bladder cancer Status: Chronic Urinary tract infection with coagulase negative Staph in the setting of recent instrumentation and resection of bladder tumor, now likely with metastatic disease. Patient will be treated with linezolid 600 mg b.i.d. for 10 days. Will follow.
[2018-04-06] MEDS: ATORVASTATIN 40 MG TAB PO SCH (21:22)
[2018-04-07] VITALS (7 sets, daily range): BP systolic 82–121; BP diastolic 56–77; PULSE 81–100; TEMP 36.2–36.9; O2SAT 92–98
[2018-04-07] MEDS: ACETAMINOPHEN 325 MG TAB PO PRN (02:39)
[2018-04-07 07:25] LABS: INR 1.3 (0.9-1.1)
[2018-04-07] MEDS: FINASTERIDE 5 MG TAB PO SCH (08:49)
[2018-04-07] MEDS: FUROSEMIDE 20 MG TAB PO SCH ×2 (08:49→16:25)
[2018-04-07] MEDS: LINEZOLID 600 MG TAB PO SCH (08:49)
[2018-04-07] MEDS: METOPROLOL TARTRATE 50 MG TAB PO SCH (08:49)
[2018-04-07] MEDS: TAMSULOSIN HCL 0.4 MG CAP PO SCH (08:50)
[2018-04-07] MEDS: LISINOPRIL 20 MG TAB PO SCH (08:50)
[2018-04-07] MEDS: INSULIN ASPART 100 UNITS/ML 3 ML PEN SC SCH ×3 (08:53→16:28)
[2018-04-07] MEDS: HYDROCODONE/ACETAMIN 5/325MG TAB PO PRN (12:50)
[2018-04-07] MEDS ORDERED: HYDR-5688 PO (15:15)
[2018-04-07] MEDS ORDERED: LINE1TAB2 PO (15:15)
[2018-04-07] MEDS ORDERED: LSX20 PO ×2 (15:15→15:16)
[2018-04-07] MEDS ORDERED: PRS5 PO (15:15)
--- NOTE | 2018-04-07 15:33 | Progress Note ---
Internal Med Progress Note Date of Service: April 07, 2018. Provider Documentation: SUBJECTIVE: Patient had returned from radiation today. Hospitalist doctor and Palliative Care doctor had discussion with patient and his family. Goals of Care discussed. Patient and family would like discharge to to physical rehabilitation and then discuss as outpatient with Hematology/Oncology Dr. Jay Miranda on further cancer prognosis and treatment OBJECTIVE: Exam: General- no distress, verbal Eyes- EOMI Neck-no JVD Lungs- no wheezing, breathing on nasal cannula Heart- regular rate Abdomen- soft, nontender, + bowel sounds Extremities- no edema Neuro- speaks in full sentences ASSESSMENT & PLAN: This is a 82 year old M brought to the hospital for altered mental status and difficulty with ambulation and found to have a UTI and metastatic cancer GENERALIZED WEAKNESS, FALLS, CONFUSION / UTI (PRESENT ON ADMISSION) -CT head without contrast: No acute intracranial abnormality -Metabolic encephalopathy possibly due to Urinary tract infection -Patient has had previous history of of UTI and urinary tract procedure (02/10/18 -urine culture positive for staph, treated with Macrobid; placed on Cipro on for UTI, S/P TURBT on 03/27 in [place]) -Antibiotics on this hospital course: Positive UA on admission, S/P ceftriaxone in the ED; then placed on Vancomycin and Zosyn, urine culture as staph species coag neg with resistance to oxacillin, bactrim, tetracycline -Antibiotics switched on 04/05/18 to linezolid 600 mg b.i.d. for 10 days HISTORY OF BLADDER TUMOR/ BONY LESIONS / Malignancy / Ambulatory dysfunction -History of bladder CA diagnosed June 09, 2011 status post TURBT -Recurrence with TURBT November 07, 2017 finding of high-grade papillary urothelial carcinoma and TURBT on March 27, 2018 with finding of high-grade papillary urothelial carcinoma with focal invasion into the lamina propria and lymphovascular invasion; Follows with urologist in [place] (Dr. Romero) -multiple radiolucencies suggestive of Bony lesions found in the left tibia and fibula on outpatient X ray 02/2018 -MRI of lumbar spine: focal area of marrow replacement involving the posterior aspect of L4 vertebral body measuring 2.4 x 2.0 x 2.8 cm. The signal extended into the left pedicle and the posterior elements. In addition a lesion was involving the left L4 lamina and transverse process measuring up to 3.1 x 2.4 cm with a suggested soft tissue component measuring 1.2 x 1.3 cm. This lesion caused mild mass-effect upon the left posterior lateral epidural space without thecal extension or significant central canal narrowing. There was no evidence of pathologic fracture. Also noted was a small area in the L5 vertebral body measuring 1.0 x 1.5 cm and a small 8 mm lesion in the S2 vertebral body. -skeletal survey revealed a lucency in the left superior and inferior pubic rami consistent with a lytic lesion -Thoracic spine MRI without lesions -Radiation Oncology has followed the patient for radiation therapy on 04/06/18 and 04/07/18 to the bone lesions while in the hospital -SPEP/UPEP performed. Hematology/Oncology consulted, Hematology/Oncology had requested CT chest/ abdomen /pelvis, bone scan -Hematology/Oncology service notified hospitalist doctor about preference for patient to have colonoscopy because CT abdomen showing Moderate thickening of the rectum and a rectal mass cannot be excluded -CT chest showing multiple subcentimeter bilateral pulmonary nodules with the largest measuring 6 mm. This is concerning for metastatic disease; Pulmonary consult requested -Pulmonary service evaluated the patient on 04/06/18 and requested that hospitalist given vitamin K to reverse coumadin for possible consideration of bronchoscopy, vitamin K given; However patient's and family have declined invasive procedure's at this time such as bronchoscopy or colonoscopy -At this time any further metastatic cancer workup to be done on outpatient basis if patient and family agrees for further workup in the future -[facility] appointment line [phone] was called to have patient scheduled with hematology/oncologist Dr. Jay Miranda for outpatient visit Address: [facility] [address], [place] [address] Urology Cancer as above CKD STAGE III, [place] improved with IV fluids Continue urrutia catheter for urinary retention. as per urology: Pt is not a candidate for SP tube in the setting of infection and high grade carcinoma. If ureters were to obstruct and renal function decline, the pt would need PCN placement. CHRONIC DIASTOLIC CHF -home dose Lasix is 60 mg daily but will need to cut down to 20 mg daily on discharge due to low normal blood pressure ATRIAL FIBRILLATION -Rate controlled on metoprolol, will continue -was Anticoagulated on Coumadin on admission, INR remains supratherapeutic, vitamin K given on 04/06/18 to reverse coumadin for possible consideration of bronchoscopy, INR is 1.3 on 04/07/18. since bronchoscopy is not being pursed at this time, coumadin can be restarted HYPERTENSION -BP controlled, continue lisinopril and metoprolol DM TYPE II -Hgb A1c 7.3 01/2018 -can resume oral glimepiride on discharge COPD -Continue home inhalers COCCYX/BUTTOCKS DECUBITUS ULCERS (PRESENT ON ADMISSION) -Wound care Physical Therapy initial assessment 04/04/18: pt unsafe and not functioning well enough to return home. He will need inpt rehab Patient/family signed POLST forms with palliative care service doctor on 04/07/18 Discharge to [facility] for physical Rehabilitation [facility] appointment line [phone] was called to have patient scheduled with hematology/oncologist Dr. Jay Miranda for outpatient visit Address: [address] [place], [place] [address], [place] [address] Vital Signs: Date Time Temp Pulse Resp B/P (MAP) Pulse Ox O2 Delivery O2 Flow Rate FiO2 04/07/18 15:03 36.5 97 18 82/56 (65) 97 Nasal Cannula 2.0 95/60 (72) 04/07/18 15:03 36.3 89 20 95/62 (73) 97 04/07/18 12:31 36.5 84 22 108/70 (83) 94 Nasal Cannula 3.0 04/07/18 08:20 Nasal Cannula 2.0 04/07/18 07:45 36.6 81 20 111/70 (84) 98 Nasal Cannula 2.0 04/07/18 05:01 36.2 100 20 121/77 (92) 92 Nasal Cannula 04/07/18 00:00 36.9 93 20 102/65 (77) 95 Room Air 04/07/18 00:00 94 Room Air 04/06/18 20:03 36.5 86 20 128/75 (92) 94 Room Air 04/06/18 20:00 Room Air Lab Results: Results Past 24 Hours Test 04/06/18 15:39 04/06/18 17:44 04/06/18 20:42 04/07/18 06:59 Range/Units Bedside Glucose 124 154 70-99 mg/dl Prothrombin Time 13.7 9.0-12.0 SECONDS Prothromb Time International Ratio 1.3 0.9-1.1 Test 04/07/18 07:43 04/07/18 11:57 Range/Units Bedside Glucose 122 172 70-99 mg/dl
--- NOTE | 2018-04-07 15:40 | Discharge Instructions ---
Discharge Instructions Date of Service April 07, 2018. Admission Reason for Admission: UTI Discharge Discharge Diagnosis / Problem: metastatic cancer,urinary tract infection, ambulatory dysfunction Discharge Goals Goal(s): Improve function, Improve disease control Activity Recommendations Activity Limitations: per Instructions/Follow-up section Shower/Bathe: no limitations . Instructions / Follow-Up Instructions / Follow-Up This is a 82 year old M brought to the hospital for altered mental status and difficulty with ambulation and found to have a UTI and metastatic cancer GENERALIZED WEAKNESS, FALLS, CONFUSION / UTI (PRESENT ON ADMISSION) -CT head without contrast: No acute intracranial abnormality -Metabolic encephalopathy possibly due to Urinary tract infection -Patient has had previous history of of UTI and urinary tract procedure (02/10/18 -urine culture positive for staph, treated with Macrobid; placed on Cipro on for UTI, S/P TURBT on 03/27 in [place]) -Antibiotics on this hospital course: Positive UA on admission, S/P ceftriaxone in the ED; then placed on Vancomycin and Zosyn, urine culture as staph species coag neg with resistance to oxacillin, bactrim, tetracycline -Antibiotics switched on 04/05/18 to linezolid 600 mg b.i.d. for 10 days HISTORY OF BLADDER TUMOR/ BONY LESIONS / Malignancy / Ambulatory dysfunction -History of bladder CA diagnosed June 09, 2011 status post TURBT -Recurrence with TURBT November 07, 2017 finding of high-grade papillary urothelial carcinoma and TURBT on March 27, 2018 with finding of high-grade papillary urothelial carcinoma with focal invasion into the lamina propria and lymphovascular invasion; Follows with urologist in [place] (Dr. Romero) -multiple radiolucencies suggestive of Bony lesions found in the left tibia and fibula on outpatient X ray 02/2018 -MRI of lumbar spine: focal area of marrow replacement involving the posterior aspect of L4 vertebral body measuring 2.4 x 2.0 x 2.8 cm. The signal extended into the left pedicle and the posterior elements. In addition a lesion was involving the left L4 lamina and transverse process measuring up to 3.1 x 2.4 cm with a suggested soft tissue component measuring 1.2 x 1.3 cm. This lesion caused mild mass-effect upon the left posterior lateral epidural space without thecal extension or significant central canal narrowing. There was no evidence of pathologic fracture. Also noted was a small area in the L5 vertebral body measuring 1.0 x 1.5 cm and a small 8 mm lesion in the S2 vertebral body. -skeletal survey revealed a lucency in the left superior and inferior pubic rami consistent with a lytic lesion -Thoracic spine MRI without lesions -Radiation Oncology has followed the patient for radiation therapy on 04/06/18 and 04/07/18 to the bone lesions while in the hospital -SPEP/UPEP performed. Hematology/Oncology consulted, Hematology/Oncology had requested CT chest/ abdomen /pelvis, bone scan -Hematology/Oncology service notified hospitalist doctor about preference for patient to have colonoscopy because CT abdomen showing Moderate thickening of the rectum and a rectal mass cannot be excluded -CT chest showing multiple subcentimeter bilateral pulmonary nodules with the largest measuring 6 mm. This is concerning for metastatic disease; Pulmonary consult requested -Pulmonary service evaluated the patient on 04/06/18 and requested that hospitalist given vitamin K to reverse coumadin for possible consideration of bronchoscopy, vitamin K given; However patient's and family have declined invasive procedure's at this time such as bronchoscopy or colonoscopy -At this time any further metastatic cancer workup to be done on outpatient basis if patient and family agrees for further workup in the future -[facility] appointment line [phone] was called to have patient scheduled with hematology/oncologist Dr. Jay Miranda for outpatient visit Address: [address], [place] [address] Urology Cancer as above CKD STAGE III, [place] improved with IV fluids Continue urrutia catheter for urinary retention. as per urology: Pt is not a candidate for SP tube in the setting of infection and high grade carcinoma. If ureters were to obstruct and renal function decline, the pt would need PCN placement. CHRONIC DIASTOLIC CHF -home dose Lasix is 60 mg daily but will need to cut down to 20 mg daily on discharge due to low normal blood pressure ATRIAL FIBRILLATION -Rate controlled on metoprolol, will continue -was Anticoagulated on Coumadin on admission, INR remains supratherapeutic, vitamin K given on 04/06/18 to reverse coumadin for possible consideration of bronchoscopy, INR is 1.3 on 04/07/18. since bronchoscopy is not being pursed at this time, coumadin can be restarted HYPERTENSION -BP controlled, continue lisinopril and metoprolol DM TYPE II -Hgb A1c 7.3 01/2018 -can resume oral glimepiride on discharge COPD -Continue home inhalers COCCYX/BUTTOCKS DECUBITUS ULCERS (PRESENT ON ADMISSION) -Wound care Physical Therapy initial assessment 04/04/18: pt unsafe and not functioning well enough to return home. He will need inpt rehab Patient/family signed POLST forms with palliative care service doctor on 04/07/18 Discharge to [facility] for physical Rehabilitation [facility] appointment line [phone] was called to have patient scheduled with hematology/oncologist Dr. Jay Miranda for outpatient visit Address: [address], [place] [address] Current Hospital Diet Patient's current hospital diet: AHA Diet (Heart Healthy), Diabetes Type 2 Diet Discharge Diet Recommended Diet: AHA Diet (Heart Healthy), Diabetes Type 2 Diet Pending Studies Studies pending at discharge: no Laboratory Results 04/06/18 06:36 Red Blood Count 4.48, Mean Corpuscular Volume 94.0, Mean Corpuscular Hemoglobin 31.7, Mean Corpuscular Hemoglobin Concent 33.7, Mean Platelet Volume 9.1, Neutrophils (%) (Auto) 70.2, Lymphocytes (%) (Auto) 18.1, Monocytes (%) (Auto) 10.0, Eosinophils (%) (Auto) 1.0, Basophils (%) (Auto) 0.3, Neutrophils # (Auto ) 7.62, Lymphocytes # (Auto) 1.96, Monocytes # (Auto) 1.09, Eosinophils # (Auto ) 0.11, Basophils # (Auto) 0.03 04/06/18 06:36 Test 04/03/18 18:25 04/03/18 18:34 04/05/18 09:41 04/05/18 12:53 Activated Partial Thromboplast Time 43.6 SECONDS (21.0-31.0) Partial Thromboplastin Ratio 1.7 Magnesium Level 2.1 mg/dl (1.8-2.4) Total Creatine Kinase 71 U/L (39-308) Troponin I < 0.015 ng/ml (0-0.045) Thyroid Stimulating Hormone (TSH) 0.843 uIu/ml (0.300-4.500) Urine Color YELLOW Urine Appearance TURBID (CLEAR) Urine pH 5.5 (4.5-7.5) Urine Specific [place] 1.014 (1.000-1.030) Urine Protein 1+ (NEG) Urine Glucose (UA) NEG (NEG) Urine Ketones NEG (NEG) Urine Occult Blood 3+ (NEG) Urine Nitrite POS (NEG) Urine Bilirubin NEG (NEG) Urine Urobilinogen NEG (NEG) Urine Leukocyte Esterase LARGE (NEG) Urine WBC (Auto) >30 /hpf (0-5) Urine RBC (Auto) 10-30 /hpf (0-4) Urine Hyaline Casts (Auto) 1-5 /lpf (0-5) Urine Epithelial Cells (Auto) 0-5 /lpf (0-5) Urine Bacteria (Auto) NEG (NEG) Urine Yeast (Auto) (NONE PRSENT) Urine Opiates Screen POS (NEG) Urine Codeine Confirmation (GC/MS) NEGATIVE NG/ML (CUTOFF=50) Urine Morphine Confirm (GC/MS) NEGATIVE NG/ML (CUTOFF=50) Urine Hydrocodone Confirm (GC/MS) 348 NG/ML (CUTOFF=50) Urine Norhydrocodone 314 NG/ML (CUTOFF=50) Urine Noroxycodone NEGATIVE NG/ML (CUTOFF=50) Urine Oxycodone Confirm (GC/MS) NEGATIVE NG/ML (CUTOFF=50) Urine Oxymorphone Confirm (GC/MS) NEGATIVE NG/ML (CUTOFF=50) Urine Methadone, Qualitative NEG (NEG) Urine Hydromorphone Confirm (GC/MS) NEGATIVE NG/ML (CUTOFF=50) Urine Barbiturates NEG (NEG) Urine Phencyclidine (PCP) Level NEG (NEG) Ur Amphetamine/Methamphetamine NEG (NEG) MDMA (Ecstasy) Screen NEG (NEG) Urine Benzodiazepines Screen NEG (NEG) Urine Cocaine Metabolite NEG (NEG) Urine Marijuana (THC) NEG (NEG) Eqsse-3-Ecvphsvwr 0.5 G/DL (0.2-0.3) Riulo-1-Efzajfkwh 0.8 G/DL (0.5-0.9) Fehz-2-Tkdphzfp 0.3 G/DL (0.4-0.6) Aest-8-Fzlufhps 0.5 G/DL (0.2-0.5) Gamma Globulins 0.8 G/DL (0.8-1.7) Prot Electrophor Monoclonal Peak 3 G/DL (NOT DETECTED) Serum Monoclonal Protein G/DL (NOT DETECTED) Serum Monoclonal Protein (2) G/DL (NOT DETECTED) Protein Electrophoresis Interpret SEE NOTE Total Protein (LAM) 5.3 G/DL (6.2-8.3) Albumin (LAM) 2.4 G/DL (3.8-4.8) Free Wheelwright Light Chains, Quant 50.8 MG/L (3.3-19.4) Free Lambda Light Chains, Quant 29.6 MG/L (5.7-26.3) Free Wheelwright/Lambda Light Chain Ratio 1.72 (0.26-1.65) Test 04/06/18 06:36 04/06/18 15:39 04/07/18 06:59 04/07/18 11:57 White Blood Count 10.85 K/uL (4.8-10.8) Red Blood Count 4.48 M/uL (4.7-6.1) Hemoglobin 14.2 g/dL (14.0-18.0) Hematocrit 42.1 % (42-52) Mean Corpuscular Volume 94.0 fL (80-100) Mean Corpuscular Hemoglobin 31.7 pg (25-34) Mean Corpuscular Hemoglobin Concent 33.7 g/dl (32-36) Platelet Count 243 K/uL (130-400) Mean Platelet Volume 9.1 fL (7.4-10.4) Neutrophils (%) (Auto) 70.2 % Lymphocytes (%) (Auto) 18.1 % Monocytes (%) (Auto) 10.0 % Eosinophils (%) (Auto) 1.0 % Basophils (%) (Auto) 0.3 % Neutrophils # (Auto) 7.62 K/uL (1.4-6.5) Lymphocytes # (Auto) 1.96 K/uL (1.2-3.4) Monocytes # (Auto) 1.09 K/uL (0.11-0.59) Eosinophils # (Auto) 0.11 K/uL (0-0.5) Basophils # (Auto) 0.03 K/uL (0-0.2) RDW Standard Deviation 48.3 fL (36.4-46.3) RDW Coefficient of Variation 14.1 % (11.5-14.5) Immature Granulocyte % (Auto) 0.4 % Immature Granulocyte # (Auto) 0.04 K/uL (0.00-0.02) Anion Gap 5.0 mmol/L (3-11) Est Creatinine Clear Calc Drug Dose 52.7 ml/min Estimated GFR () 68.3 Estimated GFR (Non- 58.9 BUN/Creatinine Ratio 15.3 (10-20) Calcium Level 10.6 mg/dl (8.5-10.1) Total Bilirubin 1.4 mg/dl (0.2-1) Aspartate Amino Transf (AST/SGOT) 30 U/L (15-37) Alanine Aminotransferase (ALT/SGPT) 22 U/L (12-78) Alkaline Phosphatase 176 U/L (45-117) Total Protein 6.6 gm/dl (6.4-8.2) Albumin 2.3 gm/dl (3.4-5.0) Globulin 4.3 gm/dl (2.5-4.0) Albumin/Globulin Ratio 0.5 (0.9-2) Prothrombin Time 13.7 SECONDS (9.0-12.0) Prothromb Time International Ratio 1.3 (0.9-1.1) Bedside Glucose 172 mg/dl (70-99) Date/Time Source Procedure Growth Status 04/03/18 18:25 Blood Blood Culture - Preliminary NO GROWTH TO DATE. Resulted 04/06/18 15:05 Stool C.difficile Toxin B Gene (PCR) - Final No C. difficile toxin B gene detected Complete 04/03/18 18:34 Urine,Catheterized Urine Culture - Final Coag Neg Staphylococcus Complete Medical Emergencies . Who to Call and When: Medical Emergencies: If at any time you feel your situation is an emergency, please call 911 immediately. . Non-Emergent Contact Non-Emergency issues call your: Oncologist Call Non-Emergent contact if: you have any medication questions . . "Provider Documentation" section prepared by Demarcus Roy. .
--- NOTE | 2018-04-07 15:52 | Discharge Summary ---
Discharge Summary Date of Service April 07, 2018. Discharge Summary Admission Date: April 03, 2018 at 20:52 Discharge Date: April 07, 2018 Discharge Disposition: Rehab ([facility]) Principal Diagnosis: metastatic cancer, urinary tract infection, urinary retention, supratherapeutic INR from Coumadin use for atrial fibrillation, ambulatory dysfunction Admission Information HPI (per Admitting provider): 82-year-old male who presents to the ED with generalized weakness, falls, and confusion. and daughter at the bedside who provides some information. Patient has been following with urology at [place] for bladder tumor. On , patient had urine culture positive for staph. He was treated with Macrobid. Patient was seen by urology on 03/13/18 in preparation for TURBT and was found to have a UTI. I do not have access to those culture results. Patient was treated with Cipro. On 03/27/18, patient underwent TURBT. He had a Urrutia catheter placed postoperatively. This was removed on 03/31/18. Daughter is at the bedside who reports that urine was initially bloody after removing the catheter however has since cleared up. The patient has had at least 3 falls over the past 3 days. He did strike his head on 1 of the falls. There was no loss of consciousness. Daughter reports she witnessed each of the falls and the patient did not pass out. She reports the patient has had increasing confusion of the past 1 month. No unilateral weakness, numbness, or tingling. No facial droop or slurred speech. Patient denies feelings of lightheadedness or dizziness. No chest pain or shortness of breath. No abdominal pain, nausea , vomiting. Daughter reports the patient had some diarrhea for a couple of days however none since yesterday. No fevers or chills. No reported urinary symptoms. In the ED, patient's UA is suggestive of UTI. Vitals are stable and labs are unremarkable. He was given IVF and a dose of IV ceftriaxone. Physical Exam (per Admitting): General Appearance: WD/WN, no apparent distress Head: normocephalic, atraumatic Eyes: normal inspection, EOMI, sclerae normal ENT: hearing grossly normal, + pertinent finding (Mucous membranes moist) Neck: supple, no JVD, trachea midline Respiratory/Chest: lungs clear, normal breath sounds, no respiratory distress Cardiovascular: no edema, normal peripheral pulses, + irregularly irregular (Heart rate in the low 100s) Abdomen/GI: normal bowel sounds, non tender, soft, no organomegaly Extremities/Musculoskelatal: normal inspection, no calf tenderness, normal capillary refill Neurologic/Psych: no motor/sensory deficits, alert, + disoriented (To time and situation, forgetful) Skin: + pertinent finding (DTI/stage II decubitus ulcer noted to coccyx, bilateral buttocks) Hospital Course This is a 82 year old M brought to the hospital for altered mental status and difficulty with ambulation and found to have a UTI and metastatic cancer GENERALIZED WEAKNESS, FALLS, CONFUSION / UTI (PRESENT ON ADMISSION) -CT head without contrast: No acute intracranial abnormality -Metabolic encephalopathy possibly due to Urinary tract infection -Patient has had previous history of of UTI and urinary tract procedure (02/10/18 -urine culture positive for staph, treated with Macrobid; placed on Cipro on for UTI, S/P TURBT on 03/27 in [place]) -Antibiotics on this hospital course: Positive UA on admission, S/P ceftriaxone in the ED; then placed on Vancomycin and Zosyn, urine culture as staph species coag neg with resistance to oxacillin, bactrim, tetracycline -Antibiotics switched on 04/05/18 to linezolid 600 mg b.i.d. for 10 days HISTORY OF BLADDER TUMOR/ BONY LESIONS / Malignancy / Ambulatory dysfunction -History of bladder CA diagnosed June 09, 2011 status post TURBT -Recurrence with TURBT November 07, 2017 finding of high-grade papillary urothelial carcinoma and TURBT on March 27, 2018 with finding of high-grade papillary urothelial carcinoma with focal invasion into the lamina propria and lymphovascular invasion; Follows with urologist in [place] (Dr. Romero) -multiple radiolucencies suggestive of Bony lesions found in the left tibia and fibula on outpatient X ray 02/2018 -MRI of lumbar spine: focal area of marrow replacement involving the posterior aspect of L4 vertebral body measuring 2.4 x 2.0 x 2.8 cm. The signal extended into the left pedicle and the posterior elements. In addition a lesion was involving the left L4 lamina and transverse process measuring up to 3.1 x 2.4 cm with a suggested soft tissue component measuring 1.2 x 1.3 cm. This lesion caused mild mass-effect upon the left posterior lateral epidural space without thecal extension or significant central canal narrowing. There was no evidence of pathologic fracture. Also noted was a small area in the L5 vertebral body measuring 1.0 x 1.5 cm and a small 8 mm lesion in the S2 vertebral body. -skeletal survey revealed a lucency in the left superior and inferior pubic rami consistent with a lytic lesion -Thoracic spine MRI without lesions -Radiation Oncology has followed the patient for radiation therapy on 04/06/18 and 04/07/18 to the bone lesions while in the hospital -SPEP/UPEP performed. Hematology/Oncology consulted, Hematology/Oncology had requested CT chest/ abdomen /pelvis, bone scan -Hematology/Oncology service notified hospitalist doctor about preference for patient to have colonoscopy because CT abdomen showing Moderate thickening of the rectum and a rectal mass cannot be excluded -CT chest showing multiple subcentimeter bilateral pulmonary nodules with the largest measuring 6 mm. This is concerning for metastatic disease; Pulmonary consult requested -Pulmonary service evaluated the patient on 04/06/18 and requested that hospitalist given vitamin K to reverse coumadin for possible consideration of bronchoscopy, vitamin K given; However patient's and family have declined invasive procedure's at this time such as bronchoscopy or colonoscopy -At this time any further metastatic cancer workup to be done on outpatient basis if patient and family agrees for further workup in the future -[facility] appointment line [phone] was called to have patient scheduled with hematology/oncologist Dr. Jay Miranda for outpatient visit Address: [address], [place] [address] Urology Cancer as above CKD STAGE III, [place] improved with IV fluids Continue urrutia catheter for urinary retention. as per urology: Pt is not a candidate for SP tube in the setting of infection and high grade carcinoma. If ureters were to obstruct and renal function decline, the pt would need PCN placement. CHRONIC DIASTOLIC CHF -home dose Lasix is 60 mg daily but will need to cut down to 20 mg daily on discharge due to low normal blood pressure ATRIAL FIBRILLATION -Rate controlled on metoprolol, will continue -was Anticoagulated on Coumadin on admission, INR remains supratherapeutic, vitamin K given on 04/06/18 to reverse coumadin for possible consideration of bronchoscopy, INR is 1.3 on 04/07/18. since bronchoscopy is not being pursed at this time, coumadin can be restarted HYPERTENSION -BP controlled, continue lisinopril and metoprolol DM TYPE II -Hgb A1c 7.3 01/2018 -can resume oral glimepiride on discharge COPD -Continue home inhalers COCCYX/BUTTOCKS DECUBITUS ULCERS (PRESENT ON ADMISSION) -Wound care Physical Therapy initial assessment 04/04/18: pt unsafe and not functioning well enough to return home. He will need inpt rehab Patient/family signed POLST forms with palliative care service doctor on 04/07/18 Discharge to [facility] for physical Rehabilitation [facility] appointment line [phone] was called to have patient scheduled with hematology/oncologist Dr. Jay Miranda for outpatient visit Address: [address], [place] [address] Total time spent on discharge = 40 minutes This includes examination of the patient, discharge planning, medication reconciliation, and communication with other providers. Discharge Instructions see above
[2018-04-07] MEDS ORDERED: WARFARIN SOD 7.5 MG TAB PO SCH (16:00)
--- NOTE | 2018-04-07 17:42 | Hematology/Oncology Prog Note ---
Hematology/Onc Progress Note Date of Service April 07, 2018. Subjective Rounded on patient at bedside. He had no complaints. he states his back pain is 3/10. He denies urinary issues. Vital Signs Vital Signs Past 12 Hours Date Time Temp Pulse Resp B/P (MAP) Pulse Ox O2 Delivery O2 Flow Rate FiO2 04/07/18 16:26 110/72 (85) 04/07/18 16:03 36.5 97 18 97 Nasal Cannula 04/07/18 16:00 Nasal Cannula 2.0 04/07/18 15:03 36.5 97 18 82/56 (65) 97 Nasal Cannula 2.0 95/60 (72) 04/07/18 15:03 36.3 89 20 95/62 (73) 97 04/07/18 12:31 36.5 84 22 108/70 (83) 94 Nasal Cannula 3.0 04/07/18 08:20 Nasal Cannula 2.0 04/07/18 07:45 36.6 81 20 111/70 (84) 98 Nasal Cannula 2.0 Physical Exam Constitutional: Level of Distress: NAD Lungs: Auscuitation: breath sounds normal, no wheezing Cardiovascular: Heart Auscultation: RRR Abdomen: Inspection & Palpation: soft, no tenderness, guarding & rebound Laboratory Test 04/07/18 06:59 04/07/18 16:23 Prothrombin Time 13.7 SECONDS (9.0-12.0) Prothromb Time International Ratio 1.3 (0.9-1.1) Bedside Glucose 194 mg/dl (70-99) Radiology Bone scan from 04/06/18: There is extensive abnormal tracer deposition identified. Large lesions are seen within the bony pelvis involving the pubic ramus bilaterally. Lesions are identified in the lower lumbar spine involving L4 and L5. This corresponds to the recent CT findings. Additional foci of abnormal activity are seen within the mid shaft of the left femur, the medial right femoral condyle, and throughout both tibia. No lesions identified involving the calvarium or bony thorax Thoracic MRI from 04/06/18: There is no convincing MRI evidence of metastatic disease involving the thoracic spine. CT abd/pelvis from 04/05/18: 1. Multiple destructive soft tissue masses seen within the spine, sacrum, and pelvic bones as described above consistent with metastatic disease. 2. Moderate thickening of the rectum which is nonspecific. A rectal mass cannot be excluded. Consider endoscopy for further evaluation. 3. Bladder wall thickening with adjacent fat stranding consistent with a cystitis. The bladder is decompressed by a Eubanks catheter. 4. Pathologic fracture at the super endplate of L5 without significant loss of height. CT chest from 04/05/18: Interval development of multiple subcentimeter bilateral pulmonary nodules with the largest measuring 6 mm. This is concerning for metastatic disease. 2. Focal area of consolidation at the base of the left lower lobe. This is indeterminate but favors atelectasis. An underlying pulmonary lesion would be difficult to exclude. Assessment & Plan 1. 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 Rectal thickening on CT scan 3. Pain from bony neoplasm * Advised the primary team that Dr. Nathan would like a colonoscopy to further evaluate rectal thickening on CT scan * Dr. Roy states a meeting was held with family today about goals of care and that it was discussed that the patient will be discharged today for rehab and that patient/family will meet with Dr. nathan in outpatient setting * Today patient indicated that he would want to proceed with palliative treatment systemically for his cancer * He will continue on XRT for bony mets palliation * patient will need med onc follow up on discharge Dr. Nathan is attending medical oncologist.
--- NOTE | 2018-04-07 19:54 | Palliative Care Consultation ---
Consultation Date of Consultation: April 07, 2018. Requesting Physician: Dr Roy Attending Physician: Dr Roy Reason for Consultation: Assist with medical decision making, CODE STATUS and complete a POLST form History of Present Illness Patient is an 82-year-old gentleman with a history of urothelial cancer with metastatic lesions to the bone, newly found lung nodules, and colonic wall thickening found on CT scan. Patient seen in his room with attending physician Dr. Demarcus Roy ,pt's of 7 weeks and his 17-year-old daughter. Patient has other children from her previous marriage, when asked if he would like them to participate in our discussion patient replied, "this is my family here". Discussed multiple options with family including further investigation of the colon as well as lung nodules. Patient is receiving radiation therapy to the bone metastases for pain control. Patient has only required as needed Narco 5/ 325 for radiation treatments, patient has become significantly weaker. Family asked for some time to think about the discussion before making a decision. Return to room later, family decided they want patient to go to rehab at [facility] to regain some strength and plan to pursue either chemo or further workup depending on his recovery. Both patient and family do not wish patient to be resuscitated, [place] POLST form was filled out and patient signed it. Past Medical/Surgical History Medical History: A. fib, bladder cancer, CHF, chronic kidney disease stage III, COPD, diabetes, HLD, HTN, GERD, STEPHENIE Surgical History: TURBT, inguinal hernia repair cataract Social History Smoking Status: Former Smoker History of Alcohol Use: No Marital Status: (7 weeks ago) Housing Status: lives with family Occupation Status: retired Review of Systems Constitutional: No fever, No chills Eyes: No worsening of vision ENT: + hearing loss Respiratory: No cough Cardiac: No chest pain Abdomen: No pain Musculoskeletal: + problem reported (Back and hip pain due to bone metastases) Neurologic: + memory loss Psychiatric: No depression symptoms Endo: + fatigue Allergies Coded Allergies: Latex1 -Allergic Contact Dermititis (Verified Allergy, Unknown, LOCAL SKIN IRRITATION, 04/03/18) Cefuroxime (Verified Adverse Reaction, Mild, GI UPSET, 04/03/18) Penicillins (Verified Adverse Reaction, Mild, VOMITING, 04/03/18) Physical Exam Date Time Temp Pulse Resp B/P (MAP) Pulse Ox O2 Delivery O2 Flow Rate FiO2 04/07/18 16:26 110/72 (85) 04/07/18 16:03 36.5 97 18 97 Nasal Cannula 04/07/18 16:00 Nasal Cannula 2.0 04/07/18 15:03 36.5 97 18 82/56 (65) 97 Nasal Cannula 2.0 95/60 (72) 04/07/18 15:03 36.3 89 20 95/62 (73) 97 04/07/18 12:31 36.5 84 22 108/70 (83) 94 Nasal Cannula 3.0 04/07/18 08:20 Nasal Cannula 2.0 04/07/18 07:45 36.6 81 20 111/70 (84) 98 Nasal Cannula 2.0 04/07/18 05:01 36.2 100 20 121/77 (92) 92 Nasal Cannula 04/07/18 00:00 36.9 93 20 102/65 (77) 95 Room Air 04/07/18 00:00 94 Room Air 04/06/18 20:03 36.5 86 20 128/75 (92) 94 Room Air 04/06/18 20:00 Room Air General Appearance: no apparent distress Eyes: EOMI ENT: + pertinent finding (Hard of hearing) Neck: supple Respiratory: no respiratory distress Cardiovascular: regular rate, rhythm Abdomen: non tender, soft Musculoskeletal: pertinent finding (Generalized weakness) Neurologic/Psychiatric: alert (Able to participate in conversation) Skin: warm/dry Laboratory Results Last 24 Hours Test 04/06/18 20:42 04/07/18 06:59 04/07/18 07:43 04/07/18 11:57 Bedside Glucose 154 mg/dl 122 mg/dl 172 mg/dl Prothrombin Time 13.7 SECONDS Prothromb Time International Ratio 1.3 Test 04/07/18 16:23 Bedside Glucose 194 mg/dl Assessment & Plan Palliative Performance Scale: 40 % (1) Weakness generalized Status: Acute Assessment & Plan: Patient plan to go to further decisions regarding his cancer care will be made after patient completes rehab [facility] for rehab (2) Palliative care encounter Assessment & Plan: Provided support to family and patient and decision medical making,POLST form completed and signed by patient (3) Bladder cancer Status: Chronic Assessment & Plan: Further treatment to be determined after patient completes rehab will have follow-up outpatient with oncology Counseling and Coordination Total time 40 minutes with greater than 50% of the time spent at bedside discussing treatment options, developing a plan of care and supporting family and medical decision making.
[2018-04-11] MEDS ORDERED: WARFARIN SOD 5 MG TAB PO SCH (16:30)
== END 2018-04-07 18:04 | DRG 689 ==
LOC: EDBD 17:44 → C.EDB 17:45 → C.4E 20:52 → ENRESERV 21:06 → EDBEDREQ 21:13
PROVIDERS: ADMIT Internal Medicine; ATTEND Hospitalist
DX: N39.0 Urinary tract infection, site not specified (principal); G93.41 Metabolic encephalopathy; C79.51 Secondary malignant neoplasm of bone; I50.32 Chronic diastolic (congestive) heart failure; I13.0 Hypertensive heart and chronic kidney disease with heart failure and stage 1 through stage 4 chronic kidney disease, or unspecified chronic kidney disease; C79.82 Secondary malignant neoplasm of genital organs; N17.9 Acute kidney failure, unspecified; Z51.5 Encounter for palliative care; E11.22 Type 2 diabetes mellitus with diabetic chronic kidney disease; I48.91 Unspecified atrial fibrillation; N18.3 Chronic kidney disease, stage 3 (moderate); J44.9 Chronic obstructive pulmonary disease, unspecified; E78.5 Hyperlipidemia, unspecified; K21.9 Gastro-esophageal reflux disease without esophagitis; G47.33 Obstructive sleep apnea (adult) (pediatric); C67.9 Malignant neoplasm of bladder, unspecified; E86.0 Dehydration; R29.6 Repeated falls; W19.XXXA Unspecified fall, initial encounter; S09.90XA Unspecified injury of head, initial encounter; L89.300 Pressure ulcer of unspecified buttock, unstageable; L89.150 Pressure ulcer of sacral region, unstageable; Z87.891 Personal history of nicotine dependence; Z98.49 Cataract extraction status, unspecified eye; Z91.040 Latex allergy status; Z79.01 Long term (current) use of anticoagulants; Z88.0 Allergy status to penicillin

== ENCOUNTER → 2018-04-11 | Outpatient (CLI) | payer OTHER ==
[~2018-04-11] MED LIST changes: -AMR2 PO; -ASPEC81 PO; +BISA-16 PO; -FLM4 PO; -FLNIN NAE; -FRS/40 PO; -GLC500 PO; +GLIM4TAB2 PO; +HYDR-5688 PO; +INSPMPHMLG; +LINE1TAB2 PO; +LSX20 PO; +PRS5 PO; +TAMS0.4C38 PO
[2018-04-11 08:09] LABS: INR 1.7 (0.9-1.1)
== END ==
LOC: C.LABCC 07:43
PROVIDERS: ATTEND Internal Medicine
DX: I48.91 Unspecified atrial fibrillation (principal)